=== PATIENT | female | born 1975 | race Caucasian/White ===

== ENCOUNTER 2017-09-02 16:14 | Emergency (ER) | payer MEDICAID, SELFPAY ==
[2017-09-02 16:15] VITALS: BP 122/90; PULSE 90; RESP 18; TEMP 36.6; O2SAT 96; BMI 27.3
[2017-09-02 16:20] VITALS: BMI 28.1
--- NOTE | 2017-09-02 16:22 | XR_ITS ---
XR chest portable HISTORY: ITS.REASON: CHEST PAIN ORDERING PHYSICIAN: Jack Ace MD PATIENT AGE: 41 years COMPARISON: 12/27/2016 FINDINGS: The cardiomediastinal silhouette and pulmonary vascularity are within normal limits. The lungs are clear without infiltrates, suspicious nodules, or pleural effusions. Calcified granuloma right upper lobe No acute bony abnormalities. IMPRESSION: No change with no acute finding
[2017-09-02 16:40] LABS: Basophils % 0.4 % (0.1-2.0); Eosinophils # 0.4 K/mm3 (0.0-0.4); Hematocrit 47.8 % (37.0-47.0); Hemoglobin 16.1 g/dL (12.2-16.2); Lymphocytes # 2.4 K/mm3 (0.7-4.5); Lymphocytes % 37.1 K/mm3 (10-50); Mean Corpuscular HGB Conc 33.6 g/dL (31.8-35.4); Mean Corpuscular Hemoglobin 30.8 pg (27.0-31.2); Mean Corpuscular Volume 91.5 fl (81-99); Mean Platelet Volume 7.3 fl (7.4-10.4); Monocytes # 0.4 K/mm3 (0.1-1.0); Monocytes % 5.2 % (1.7-9.3); Neutrophils # 3.4 K/mm3 (1.8-7.8); Neutrophils % 51.3 % (37.0-80.0); Platelet Count 257 K/mm3 (142-424); Red Blood Count 5.23 M/mm3 (4.20-5.40); Red Cell Distribution Width 12.6 % (11.5-17.5); White Blood Count 6.6 K/mm3 (4.8-10.8)
--- NOTE | 2017-09-02 16:42 | HMH.EDGENADL ---
ED Disposition Clinical Impression: Atypical chest pain Vomiting Qualifiers: Vomiting type: unspecified Vomiting Intractability: non-intractable Nausea presence: with nausea Qualified Code(s): R11.2 - Nausea with vomiting, unspecified Disposition: Home, Self-Care Condition on Discharge: Good Instructions: DI for Atypical Chest Pain, DI for Vomiting -- Adult Additional Instructions: Additional instructions for CHEST PAIN: See your physician as soon as possible for further evaluation. Return immediately if worsening chest pain, vomiting, shortness of breath, fever, coughing of blood. Referrals: Mark Soto MD [Primary Care Provider] - Forms: Work/School Release - Critical Care Critical Care Time: No Attestation: On , the high probability of a clinically significant, sudden or life threatening deterioration of the following system(s) required my full and direct attention, intervention and personal management. The time I documented below is in addition to time spent performing reported procedures but includes the following listed in this critical care notation. Medical Decision Making - Hector Inquiry Pt receiving controlled substance: No Vital Signs: 09/02/17 16:15 Temperature 98 F Temperature Source Oral Pulse Rate [Right Radial] 90 Respiratory Rate 18 Blood Pressure [Right Arm] 122/90 Blood Pressure Mean [Right Arm] 100 Blood Pressure Source [Right Arm] Automatic Cuff Blood Pressure Position [Right Arm] Supine 02 Sat by Pulse Oximetry 96 Oxygen Delivery Method Room Air - Lab Data Lab Results 09/02/17 16:30: WBC 6.6, RBC 5.23, Hgb 16.1, Hct 47.8 H, MCV 91.5, MCH 30.8, MCHC 33.6, RDW 12.6, Plt Count 257, MPV 7.3 L, Neut % (Auto) 51.3, Lymph % (Auto) 37.1, [place] % (Auto) 5.2, Eos % (Auto) 6.0, Baso % (Auto) 0.4, Neut # (Auto) 3.4, Lymph # (Auto) 2.4, [place] # (Auto) 0.4, Eos # (Auto) 0.4, Baso # (Auto) 0.0 09/02/17 17:00: Sodium 141, Potassium 3.3 L, Chloride 105, Carbon Dioxide 30, Anion Gap 9.3, BUN 9, Creatinine 0.61, Estimated Creat Clear 131, Estimated GFR 107, Est GFR ( Amer) 130, Glucose 103, Calcium 9.0, Total Bilirubin 0.4, AST 16, ALT 16, Alkaline Phosphatase 88, Total Creatine Kinase 60, CK-MB (CK-2) < 0.5, CK-MB (CK-2) Rel Index 0.8, Troponin I < 0.02, Total Protein 7.2, Albumin 3.5, Globulin 3.7 H, Albumin/Globulin Ratio 0.9 L 09/02/17 17:00: Lipase 106 Result diagrams: 09/02/17 16:30 09/02/17 17:00 Orders (Tests/Meds): ED MEDICATIONS Discontinued Medications Generic Name Dose Route Start Last Admin Trade Name Freq PRN Reason Stop Dose Admin Aspirin 324 mg 09/02/17 16:22 09/02/17 16:24 Aspirin 81mg Chewable Tablet PO 09/02/17 16:23 324 mg ONCE ONE Administration ORDERS Category Date Time Status XR chest portable Stat Exams 09/02/17 16:22 Taken - Radiology Data #1 Image(s): Chest Image Reviewed: Yes I reviewed the patient's radiology image Preliminary Findings: Normal/NAD - ECG Data Tracing #1 EKG interpreted by Jack Ace MD: Rhythm: sinus Rate: 89 Council: normal Ectopy: none Conduction: normal ST Segment Changes: none T Wave Changes: none Q Waves: none No evidence of acute ischemia or injury Medical Decision Narrative: Records reviewed. Patient had normal cardiac cath on 01/04/[address] Brock. General Adult HPI - General Chief complaint: Chest Pain Stated complaint: Chest Pain Time Seen by Provider: 09/02/17 17:09 Mode of Arrival: Ambulatory Limitations: No Limitations Description of Symptoms (Recalled from ER Triage Doc. by RN): Chest Pain - History of Present Illness HPI narrative: The patient complains of vomiting and chest discomfort. She says that she started vomiting about 8 this morning and then afterwards developed intermittent pain on the left lateral side of her chest. She says the pains come and go and last 3-4 minutes at a time. No shortness of breath or cough. No diarrhea. N
[2017-09-02 17:33] LABS: Lipase 106 u/L (73-393)
[2017-09-02 18:00] LABS: Alanine Aminotransferase 16 U/L (12-78); Albumin Level 3.5 gm/dL (3.4-5.0); Albumin/Globulin Ratio 0.9 (1.1-1.8); Alkaline Phosphatase 88 U/L (46-116); Anion Gap 9.3 mEq/L (5-15); Aspartate Amino Transferase 16 U/L (15-37); Bilirubin,Total 0.4 mg/dL (0.2-1.0); Blood Urea Nitrogen 9 mg/dL (7-18); CKMB Relative Index 0.8 U/L (0-4.0); Carbon Dioxide 30 mmol/L (21.0-32.0); Chloride 105 mmol/L (98-107); Creatine Kinase 60 U/L (26-192); Creatine Kinase MB < 0.5 mg/ml (0.0-3.6); Creatinine Clearance Estimated 131 mL/min (0-300); Creatinine,Serum 0.61 mg/dL (0.55-1.02); Estimated Glomerular Filt Rate 107 ml/min (>60); GFR (African American) 130 ML/MIN (>60); Globulin 3.7 gm/dl (1.3-3.2); Glucose 103 mg/dL (74-106); Potassium 3.3 mmoL/L (3.5-5.1); Sodium 141 mmol/L (136-145); Total Protein,Serum 7.2 gm/dL (6.4-8.2); Troponin I < 0.02 ng/ml (0.00-0.06)
[2017-09-02 18:14] VITALS: BP 132/84; PULSE 64; RESP 16; TEMP 36.7; O2SAT 96
== END 2017-09-02 18:19 | disposition home or self-care (01) ==
PROVIDERS: Emergency Provider Emergency Medicine; Family Provider Internal Medicine Adolescent Medicine; PCP Internal Medicine Adolescent Medicine
DX: R07.89 Other chest pain (principal); R11.2 Nausea with vomiting, unspecified
CPT/HCPCS: 71045; 80053; 82550; 82553; 83690; 84484; 85025; 93005; 99282

== ENCOUNTER 2017-09-10 17:36 | Emergency (ER) | payer MEDICAID, SELFPAY ==
[2017-09-10 17:48] VITALS: BP 136/85; PULSE 95; RESP 18; TEMP 37.3; O2SAT 98; BMI 27.6
--- NOTE | 2017-09-10 17:50 | XR_ITS ---
XR foot RT min 3V HISTORY: Pain following injury ITS.REASON: Injury ORDERING PHYSICIAN: Mandi Neevs PATIENT AGE: 41 years COMPARISON: None FINDINGS: No obvious fracture or dislocation. There is mild hallux valgus with first metatarsophalangeal angle of 29 degrees. IMPRESSION: Hallux valgus otherwise negative
--- NOTE | 2017-09-10 18:23 | HMH.EDUTC ---
[facility] [place] Impression: Foot contusion Qualifiers: Encounter type: initial encounter Laterality: right Qualified Code(s): S90.31XA - Contusion of right foot, initial encounter Disposition: Home, Self-Care Condition on Discharge: Good Instructions: How To Perform RICE (Rest, Ice, Compress, Elevate) Additional Instructions: *RICE, Rest the extremity, Ice 15-20 minutes 3-4 times daily, Compress- wear the kota wrap as discussed as much as possible to help reduce swelling and pain, Elevate the extremity when at rest *Kota wrap is for support and help control swelling, use it except in the shower. Be sure that is not to tight but not to loose either *Elevate when resting *Ibuprofen 600-800mg every 6-8 hours as needed for pain an inflammation. If need something more can take Tylenol in between doses of Ibuprofen to help Immediately follow up for new or worsening of symptoms, or no noticeable improvement over the next 3-5 days Prescriptions: Ibuprofen [Ibuprofen 600mg Tab] 600 mg PO Q6H PRN #20 tab PRN Reason: Moderate Pain Referrals: Mark Soto MD [Primary Care Provider] - Time of Disposition: 18:47 Medical Decision Making - Medical Records Medical records reviewed: Yes: I reviewed the patient's medical records. - Hector Inquiry Pt receiving controlled substance: No Hector was queried for this patient: No Vital Signs: 09/10/17 17:48 Temperature 99.1 F Temperature Source Temporal Artery Scan Pulse Rate [Right] 95 H Respiratory Rate 18 Blood Pressure [Right Arm] 136/85 Blood Pressure Mean [Right Arm] 102 Blood Pressure Source [Right Arm] Automatic Cuff Blood Pressure Position [Right Arm] Sitting 02 Sat by Pulse Oximetry 98 Oxygen Delivery Method Room Air Orders (Tests/Meds): ORDERS Category Date Time Status Foot XR right minimum 3 views [XR foot RT min 3V] Stat Exams 09/10/17 17:50 Taken - Radiology Data #1 Image(s): Foot[place] [facility] [place] - General Stated complaint: AO 09/10/17 @ 1730 inj to right foot Time Seen by Provider: 09/10/17 18:00 Mode of Arrival: Ambulatory Source of Information: Patient Limitations: No Limitations Description of Symptoms (Recalled from Triage Doc. by RN): RIGHT FOOT INJURY HEENT Symptoms (Recalled from RN notes): No Resp Symptoms (Recalled from RN notes): No Skin Symptoms (Recalled from RN notes): No MS Symptoms (Recalled from RN notes): Yes Functional Status (Recalled from RN notes): N - History of Present Illness Provider Complaint: Patient state that she was at home and she dropped a microscope on the top of her right foot at home states that she immediately began to have pain and tenderness across the top of her right foot State that family immediately brought her up here to get it checked out - Related Data Previous Rx's Medication Instructions Recorded Ibuprofen [Ibuprofen 600mg Tab] 600 mg PO Q6H PRN #20 tab 09/10/17 Allergies Allergy/AdvReac Type Severity Reaction Status Date / Time No Known Allergies Allergy Verified 09/10/17 17:52 - Worker's Comp Is this a Worker's Comp case?: No [facility] History I have reviewed the patient's past medical history: Yes Medical History: Denies:: Diabetes Mellitus Type 1, Diabetes Mellitus Type 2 Amputation: No Fractures: No - Social History Smoking Status: Current every day smoker Tobacco Type: cigarettes Alcohol Intake: never - Psychiatric History Expresses thoughts of harming self/others: None Suicide Plan Description: No Plan ROS Obtained: Yes All systems reviewed & no additional complaints Physical Exam - General General appearance: alert, in no apparent distress - Respiratory Respiratory exam: Present: normal lung sounds bilaterally. Absent: respiratory distress - Cardiovascular Cardiovascular exam: Present: regular rate, normal rhythm. Absent: JVD - Abdominal Exam Abdominal exam: Present: soft, normal bowel sounds. Absent: distention, tenderness, guard
--- NOTE | 2017-09-10 18:27 | ED_ITS ---
[facility] [place] Clinical Impression: Foot contusion Qualifiers: Encounter type: initial encounter Laterality: right Qualified Code(s): S90.31XA - Contusion of right foot, initial encounter Disposition: Home, Self-Care Condition on Discharge: Good Instructions: How To Perform RICE (Rest, Ice, Compress, Elevate) Additional Instructions: *RICE, Rest the extremity, Ice 15-20 minutes 3-4 times daily, Compress- wear the kota wrap as discussed as much as possible to help reduce swelling and pain, Elevate the extremity when at rest *Kota wrap is for support and help control swelling, use it except in the shower. Be sure that is not to tight but not to loose either *Elevate when resting *Ibuprofen 600-800mg every 6-8 hours as needed for pain an inflammation. If need something more can take Tylenol in between doses of Ibuprofen to help Immediately follow up for new or worsening of symptoms, or no noticeable improvement over the next 3-5 days Prescriptions: Ibuprofen [Ibuprofen 600mg Tab] 600 mg PO Q6H PRN #20 tab PRN Reason: Moderate Pain Referrals: Mark Soto MD [Primary Care Provider] - Time of Disposition: 18:47 Medical Decision Making - Medical Records Medical records reviewed: Yes: I reviewed the patient's medical records. - Hector Inquiry Pt receiving controlled substance: No Hector was queried for this patient: No Vital Signs: 09/10/17 17:48 Temperature 99.1 F Temperature Source Temporal Artery Scan Pulse Rate [Right] 95 H Respiratory Rate 18 Blood Pressure [Right Arm] 136/85 Blood Pressure Mean [Right Arm] 102 Blood Pressure Source [Right Arm] Automatic Cuff Blood Pressure Position [Right Arm] Sitting 02 Sat by Pulse Oximetry 98 Oxygen Delivery Method Room Air Orders (Tests/Meds): ORDERS Category Date Time Status Foot XR right minimum 3 views [XR foot RT min 3V] Stat Exams 09/10/17 17:50 Taken - Radiology Data #1 Image(s): Foot/Toes [facility] [place] HPI - General Stated complaint: AO 09/10/17 @ 1730 inj to right foot Time Seen by Provider: 09/10/17 18:00 Mode of Arrival: Ambulatory Source of Information: Patient Limitations: No Limitations Description of Symptoms (Recalled from Triage Doc. by RN): RIGHT FOOT INJURY HEENT Symptoms (Recalled from RN notes): No Resp Symptoms (Recalled from RN notes): No Skin Symptoms (Recalled from RN notes): No MS Symptoms (Recalled from RN notes): Yes Functional Status (Recalled from RN notes): N - History of Present Illness Provider Complaint: Patient state that she was at home and she dropped a microscope on the top of her right foot at home states that she immediately began to have pain and tenderness across the top of her right foot State that family immediately brought her up here to get it checked out - Related Data Previous Rx's Medication Instructions Recorded Ibuprofen [Ibuprofen 600mg Tab] 600 mg PO Q6H PRN #20 tab 09/10/17 Allergies Allergy/AdvReac Type Severity Reaction Status Date / Time No Known Allergies Allergy Verified 09/10/17 17:52 - Worker's Comp Is this a Worker's Comp case?: No [facility] History I have reviewed the patient's past medical history: Yes Medical History: Denies:: Diabetes Mellitus Type 1, Diabetes Mellitus Type 2 Amputation: No Fractures: No - Social History Smoking Status: Current every day
[2017-09-10 18:42] VITALS: BP 136/85; PULSE 95; RESP 18; TEMP 37.3
== END 2017-09-10 18:53 | disposition home or self-care (01) ==
PROVIDERS: Emergency Provider Nurse Practitioner; Family Provider Internal Medicine Adolescent Medicine; PCP Internal Medicine Adolescent Medicine
DX: S90.31XA Contusion of right foot, initial encounter (principal); W22.8XXA Striking against or struck by other objects, initial encounter; Y92.019 Unspecified place in single-family (private) house as the place of occurrence of the external cause; F17.210 Nicotine dependence, cigarettes, uncomplicated
CPT/HCPCS: 73630; 99201

== ENCOUNTER 2018-02-20 13:46 | Observation (INO) ==
--- NOTE | 2018-02-20 14:35 | Emergency Department Note ---
ED Disposition Clinical Impression: Chest pain Qualifiers: Chest pain type: precordial pain Qualified Code(s): R07.2 - Precordial pain Disposition: Admitted as Observation Condition on Discharge: Good Referrals: Mark Soto MD [Primary Care Provider] - - Critical Care Critical Care Time: No Attestation: On 02/20/18, the high probability of a clinically significant, sudden or life threatening deterioration of the following system(s) required my full and direct attention, intervention and personal management. The time I documented below is in addition to time spent performing reported procedures but includes the following listed in this critical care notation. Medical Decision Making - Medical Records Medical records reviewed: Yes: I reviewed the patient's medical records. - Hector Inquiry Pt receiving controlled substance: Yes Hector was queried for this patient: No Risks and benefits of using a controlled substance: were discussed with pt by me Vital Signs: 02/20/18 14:05 02/20/18 14:48 02/20/18 15:21 Temperature 98.6 F Temperature Source Oral Pulse Rate [Right Brachial] 97 H 92 H 84 Respiratory Rate 18 Blood Pressure [Right Arm] 121/87 123/74 121/70 Blood Pressure Mean [Right Arm] 98 90 87 Blood Pressure Source [Right Arm] Automatic Cuff Automatic Cuff Automatic Cuff Blood Pressure Position [Right Arm] Sitting Sitting Sitting 02 Sat by Pulse Oximetry 99 96 97 Oxygen Delivery Method Room Air Room Air Room Air 02/20/18 16:25 Temperature Temperature Source Pulse Rate [Right Brachial] 73 Respiratory Rate Blood Pressure [Right Arm] 118/87 Blood Pressure Mean [Right Arm] 97 Blood Pressure Source [Right Arm] Automatic Cuff Blood Pressure Position [Right Arm] Sitting 02 Sat by Pulse Oximetry 98 Oxygen Delivery Method Room Air - Lab Data Lab results reviewed: Yes: I reviewed the patient's lab results. Lab Results 02/20/18 14:28: WBC 8.6, RBC 5.08, Hgb 15.4, Hct 46.3, MCV 91.1, MCH 30.3, MCHC 33.3, RDW 12.9, Plt Count 277, MPV 6.9 L, Neut % (Auto) 64.2, Lymph % (Auto) 29.2, [place] % (Auto) 4.9, Eos % (Auto) 1.4, Baso % (Auto) 0.3, Neut # (Auto) 5.5, Lymph # (Auto) 2.5, [place] # (Auto) 0.4, Eos # (Auto) 0.1, Baso # (Auto) 0.0 02/20/18 14:28: Sodium 141, Potassium 3.6, Chloride 104, Carbon Dioxide 29, Anion Gap 11.6, BUN 5 L, Creatinine 0.64, Estimated Creat Clear 129, Estimated GFR 101, Est GFR ( Amer) 122, Glucose 87, Calcium 9.2, Total Bilirubin 0.4, Direct Bilirubin 0.1, Indirect Bilirubin 0.3, AST 12 L, ALT 19, Alkaline Phosphatase 116, Troponin I < 0.02, Total Protein 8.0, Albumin 3.8, Lipase 145 02/20/18 14:28: D-Dimer < 100 02/20/18 14:45: Urine Color Yellow, Urine Appearance Clear, Urine pH 6.0, Ur Specific [place] 1.015, Urine Protein Negative, Urine Glucose (UA) Negative, Urine Ketones Negative, Urine Blood Negative, Urine Nitrate Negative, Urine Bilirubin Negative, Urine Urobilinogen 0.2, Ur Leukocyte Esterase 1+ A, Urine RBC Occasional, Urine WBC Occasional, Ur Squamous Epith Cells 20-50, Urine Bacteria Trace, Urine Trichomonas 2+ Result diagrams: 02/20/18 14:28 02/20/18 14:28 Orders (Tests/Meds): ED MEDICATIONS Generic Name Dose Route Start Last Admin Trade Name Christianoq PRN Reason Stop Dose Admin Metronidazole 100 mls @ 100 mls/hr 02/20/18 16:50 Flagyl 500mg/100ml Ivpb IV 02/20/18 17:49 ONCE ONE Protocol Discontinued Medications Generic Name Dose Route Start Last Admin Trade Name Freq PRN Reason Stop Dose Admin Aspirin 324 mg 02/20/18 14:31 02/20/18 15:04 Aspirin 81mg Chewable Tablet PO 02/20/18 14:32 324 mg ONCE ONE Administration Ketorolac Tromethamine 30 mg 02/20/18 16:50 Toradol 30mg/Ml Vial IV 02/20/18 16:51 ONCE ONE Morphine Sulfate 2 mg 02/20/18 14:31 02/20/18 15:04 Morphine 2mg/Ml Syringe IV 02/20/18 14:32 2 mg ONCE ONE Administration Pantoprazole Sodium 40 mg 02/20/18 14:35 02/20/18 15:04 Protonix 40mg Vial IV 02/20/18 14:36 40 mg ONCE ONE Administration Sodium Chloride 8 ml 02/20/18 14:35 02/20/18 15:04 Saline Flush 10ml Syringe IV 02/20/18 14:36 8 ml ONCE ONE Administration ORDERS Category Date Time Status Urine Culture Stat Micro 02/20/18 14:45 Received - Radiology Data #1 Image(s): Chest, Other (nap) Image Reviewed: Yes I have reviewed radiologist's interpretation - ECG Data Tracing #1 I reviewed this ECG and interpreted as documented below: Normal Sinus Rhythm: Yes (no stemi) Medical Decision Narrative: admit d/w Dr Soto General Adult HPI - General Chief complaint: Chest Pain Stated complaint: left rib pain vomiting Time Seen by Provider: 02/20/18 14:32 Mode of Arrival: Family Vehicle Source of Information: Patient Limitations: No Limitations Description of Symptoms (Recalled from ER Triage Doc. by RN): C/O PAIN UNDER LEFT BREAST X 3 DAYS AND VOMITING TODAY AFTER EATING - History of Present Illness HPI narrative: mild to mod off and on left sharp chest pain for 3 days, nonrad, no injury, no fever +smoking, - Related Data Home Medications Medication Instructions Recorded Confirmed Cholecalciferol (Vitamin D3) 1,000 mg PO DAILY 01/23/18 02/20/18 [Vitamin D3 1,000 Unit Tab] Citalopram Hydrobromide 20 mg PO DAILY 01/23/18 02/20/18 [Citalopram HBr] Estradiol 1 tab PO DAILY 01/23/18 02/20/18 Pantoprazole Sodium [Protonix 40mg 40 mg PO DAILY 01/23/18 02/20/18 tablet] Allergies Allergy/AdvReac Type Severity Reaction Status Date / Time No Known Allergies Allergy Verified 09/10/17 17:52 [facility] History I have reviewed the patient's past medical history: Yes Medical History: Denies:: Diabetes Mellitus Type 1, Diabetes Mellitus Type 2 Other Medical History: Reports: Other (hx frontal h/a) Laterality Cases: Bilateral: Myringotomy (Ear Tubes) Amputation: No Fractures: No - Social History Smoking Status: Current every day smoker Tobacco Type: cigarettes Alcohol Intake: never - Psychiatric History Expresses thoughts of harming self/others: None Suicide Plan Description: No Plan ROS Obtained: Yes Systems reviewed as appropriate & no additional complaints - Constitutional Constitutional: Denies fever(s) - Eyes Eyes: Denies change in vision - ENT Ears, Nose, Mouth, and Throat: Denies dizziness - Cardiovascular Cardiovascular: Reports chest pain - Respiratory Respiratory: Yes dyspnea - Gastrointestinal Gastrointestingal: Denies: abdominal pain - Musculoskeletal Musculoskeletal: Denies deformity - Integumentary/Breasts Skin/Breast: Denies rash - Neurologic Neurologic: Denies dizziness Physical Exam - General General appearance: alert, in no apparent distress - Head Head exam: atraumatic - Eye Eye exam: Present: EOMI - ENT ENT exam: Present: normal exam - Neck Neck exam: Present: full ROM - Chest Chest inspection: Present: normal inspection - Respiratory Respiratory exam: Present: normal lung sounds bilaterally - Cardiovascular Cardiovascular exam: Present: regular rate, normal rhythm - Abdominal Exam Abdominal exam: Present: soft. Absent: tenderness - Extremities Exam Extremities exam: Absent: tenderness - Neurological Exam Neurological exam: Present: alert, oriented X3 - Psychiatric Psychiatric exam: Present: normal affect, normal mood - Skin Skin exam: Present: warm, dry
[2018-02-20 14:57] LABS: Basophils % 0.3 % (0.1-2.0); Eosinophils # 0.1 K/mm3 (0.0-0.4); Eosinophils % 1.4 % (0.1-12.0); Hematocrit 46.3 % (37.0-47.0); Hemoglobin 15.4 g/dL (12.2-16.2); Lymphocytes # 2.5 K/mm3 (0.7-4.5); Lymphocytes % 29.2 K/mm3 (10-50); Mean Corpuscular HGB Conc 33.3 g/dL (31.8-35.4); Mean Corpuscular Hemoglobin 30.3 pg (27.0-31.2); Mean Corpuscular Volume 91.1 fl (81-99); Mean Platelet Volume 6.9 fl (7.4-10.4); Monocytes # 0.4 K/mm3 (0.1-1.0); Monocytes % 4.9 % (1.7-9.3); Neutrophils # 5.5 K/mm3 (1.8-7.8); Neutrophils % 64.2 % (37.0-80.0); Platelet Count 277 K/mm3 (142-424); Red Blood Count 5.08 M/mm3 (4.20-5.40); Red Cell Distribution Width 12.9 % (11.5-17.5); White Blood Count 8.6 K/mm3 (4.8-10.8)
[2018-02-20 14:59] LABS: Appearance,Urine CLEAR (Clear); Bilirubin,Urine Negative (Negative); Blood, Urine Negative (Negative); Color,Urine YELLOW (Yellow); Glucose,Urine (UA) Negative (Negative); Ketones,Urine Negative (Negative); Leukocyte Esterase,Urine 1+ (Negative); Microscopic, Urine URINE MICROSCOPIC (MICROSCOPIC); Protein,Urine Negative (Negative); Specific Gravity, Urine 1.015 (1.005-1.030); Urobilinogen,Urine 0.2 EU/dl (0.2)
[2018-02-20 15:07] LABS: Alanine Aminotransferase 19 U/L (12-78); Albumin Level 3.8 gm/dL (3.4-5.0); Alkaline Phosphatase 116 U/L (46-116); Anion Gap 11.6 mEq/L (5-15); Aspartate Amino Transferase 12 U/L (15-37); Bilirubin,Direct 0.1 mg/dL (0.0-0.2); Bilirubin,Indirect 0.3 mg/dL (0.0-0.9); Bilirubin,Total 0.4 mg/dL (0.2-1.0); Blood Urea Nitrogen 5 mg/dL (7-18); Calcium 9.2 mg/dL (8.5-10.1); Carbon Dioxide 29 mmol/L (21.0-32.0); Chloride 104 mmol/L (98-107); Glucose 87 mg/dL (74-106); Lipase 145 u/L (73-393); Potassium 3.6 mmoL/L (3.5-5.1); Sodium 141 mmol/L (136-145)
[2018-02-20 15:27] LABS: Bacteria,Urine Trace /lpf; RBC,Urine Occasional #/hpf (0-3); Squamous Epithelial Cell,Urine 20-50 #/hpf (0-5); Trichomonas,Urine 2+ /lpf; WBC,Urine Occasional #/hpf (0-3)
--- NOTE | 2018-02-20 18:21 | H&P/Discharge Summary ---
General - General Admission date:: 02/20/18 Discharge date: 02/20/18 *Admission Date: 02/20/18 *Chief complaint: Chest pain *History of present illness: 42-year-old white female who presented to the emergency department with pain under her left axillary region for the past 3 days. In the emergency department she was complaining of pain which was relieved with morphine, ibuprofen and nitroglycerin. She was admitted by the ER physician because of her risk factors. When I evaluated her on the hospital floor she was pain-free. She denied diaphoresis, nausea, vomiting, exertional character of the pain. She reported the pain was worse when she "sat down or lay down flat." Of note she has GERD, but forgets to take her medicine very frequently. [facility] History I have reviewed the patient's past medical history: Yes Medical History: Reports:: Anxiety Denies:: Arrhythmia, Asthma, Chronic Obstructive Pulmonary Disease (COPD), Coronary Artery Disease, Cerebrovascular Accident, Diabetes Mellitus Type 1, Diabetes Mellitus Type 2 Other Medical History: Reports: Other ( frontal h/a) Laterality Cases: Bilateral: Myringotomy (Ear Tubes) Amputation: No Fractures: No - *Social History Smoking Status: Current every day smoker Tobacco Type: cigarettes Alcohol Intake: never - Psychiatric History Expresses thoughts of harming self/others: None Suicide Plan Description: No Plan Review of Systems - Review of Systems Review of systems:: pertinent systems reviewed and negative unless documented below - *Neurologic Denies dizziness Exam Vital signs and Labs for Last 24 Hours: Temp Pulse Resp BP Pulse Ox 98 F 85 18 122/67 97 02/20/18 18:05 02/20/18 18:05 02/20/18 18:05 02/20/18 18:05 02/20/18 17:08 Laboratory Results - last 24 hr 02/20/18 14:28: WBC 8.6, RBC 5.08, Hgb 15.4, Hct 46.3, MCV 91.1, MCH 30.3, MCHC 33.3, RDW 12.9, Plt Count 277, MPV 6.9 L, Neut % (Auto) 64.2, Lymph % (Auto) 29.2, Adams % (Auto) 4.9, Eos % (Auto) 1.4, Baso % (Auto) 0.3, Neut # (Auto) 5.5, Lymph # (Auto) 2.5, Adams # (Auto) 0.4, Eos # (Auto) 0.1, Baso # (Auto) 0.0 02/20/18 14:28: Sodium 141, Potassium 3.6, Chloride 104, Carbon Dioxide 29, Anion Gap 11.6, BUN 5 L, Creatinine 0.64, Estimated Creat Clear 129, Estimated GFR 101, Est GFR ( Amer) 122, Glucose 87, Calcium 9.2, Total Bilirubin 0.4, Direct Bilirubin 0.1, Indirect Bilirubin 0.3, AST 12 L, ALT 19, Alkaline Phosphatase 116, Troponin I < 0.02, Total Protein 8.0, Albumin 3.8, Lipase 145 02/20/18 14:28: D-Dimer < 100 02/20/18 14:45: Urine Color Yellow, Urine Appearance Clear, Urine pH 6.0, Ur Specific [place] 1.015, Urine Protein Negative, Urine Glucose (UA) Negative, Urine Ketones Negative, Urine Blood Negative, Urine Nitrate Negative, Urine Bilirubin Negative, Urine Urobilinogen 0.2, Ur Leukocyte Esterase 1+ A, Urine RBC Occasional, Urine WBC Occasional, Ur Squamous Epith Cells 20-50, Urine Bacteria Trace, Urine Trichomonas 2+ I & O for Last 24 hours: Intake & Output 02/18/18 02/19/18 02/20/18 02/21/18 11:59 11:59 11:59 11:59 Weight 160 lb Narrative: Patient is pleasant and alert, ENT exam clear. No JVD. No thyromegaly. Heart rate regular without murmurs. She has reproducible chest pain in the left axilla at the lower part of the costal margin. She has no pulse deficits, no edema, no clubbing or cyanosis. Hospital Course Hospital Course: Patient was admitted from the ER, she has absolutely no worrisome factors for cardiac chest pain. She does have risk factors which can be addressed as an outpatient. Second troponin level is negative. Patient wishes to be discharged home and I believe this is safe. I thoroughly educated her on cardiac symptoms and she will return if she has actual cardiac chest pain. We will discharge her home with NSAID, treatment for her trichomonas and she will call my office tomorrow to schedule a stress test as an outpatient. Results Labs on day of discharge: Labs from last 24 hours 02/20/18 02/20/18 02/20/18 14:45 14:28 14:28 WBC RBC Hgb Hct MCV MCH MCHC RDW Plt Count MPV Neut % (Auto) Lymph % (Auto) Adams % (Auto) Eos % (Auto) Baso % (Auto) Neut # (Auto) Lymph # (Auto) Adams # (Auto) Eos # (Auto) Baso # (Auto) D-Dimer < 100 Sodium 141 Potassium 3.6 Chloride 104 Carbon Dioxide 29 Anion Gap 11.6 BUN 5 L Creatinine 0.64 Estimated Creat Clear 129 Estimated GFR 101 Est GFR ( Amer) 122 Glucose 87 Calcium 9.2 Total Bilirubin 0.4 Direct Bilirubin 0.1 Indirect Bilirubin 0.3 AST 12 L ALT 19 Alkaline Phosphatase 116 Troponin I < 0.02 Total Protein 8.0 Albumin 3.8 Lipase 145 Urine Color Yellow Urine Appearance Clear Urine pH 6.0 Ur Specific [place] 1.015 Urine Protein Negative Urine Glucose (UA) Negative Urine Ketones Negative Urine Blood Negative Urine Nitrate Negative Urine Bilirubin Negative Urine Urobilinogen 0.2 Ur Leukocyte Esterase 1+ A Urine RBC Occasional Urine WBC Occasional Ur Squamous Epith Cells 20-50 Urine Bacteria Trace Urine Trichomonas 2+ 02/20/18 14:28 WBC 8.6 RBC 5.08 Hgb 15.4 Hct 46.3 MCV 91.1 MCH 30.3 MCHC 33.3 RDW 12.9 Plt Count 277 MPV 6.9 L Neut % (Auto) 64.2 Lymph % (Auto) 29.2 Adams % (Auto) 4.9 Eos % (Auto) 1.4 Baso % (Auto) 0.3 Neut # (Auto) 5.5 Lymph # (Auto) 2.5 Adams # (Auto) 0.4 Eos # (Auto) 0.1 Baso # (Auto) 0.0 D-Dimer Sodium Potassium Chloride Carbon Dioxide Anion Gap BUN Creatinine Estimated Creat Clear Estimated GFR Est GFR ( Amer) Glucose Calcium Total Bilirubin Direct Bilirubin Indirect Bilirubin AST ALT Alkaline Phosphatase Troponin I Total Protein Albumin Lipase Urine Color Urine Appearance Urine pH Ur Specific [place] Urine Protein Urine Glucose (UA) Urine Ketones Urine Blood Urine Nitrate Urine Bilirubin Urine Urobilinogen Ur Leukocyte Esterase Urine RBC Urine WBC Ur Squamous Epith Cells Urine Bacteria Urine Trichomonas DS: Diagnosis - Discharge Diagnosis (1) Trichomonas infection Status: Acute (2) Atypical chest pain Status: Acute Discharge Medications - Medications for Discharge Home Medication List at Discharge: No Action Pantoprazole Sodium [Protonix 40mg tablet] 40 mg PO DAILY Citalopram Hydrobromide [Citalopram HBr] 20 mg PO DAILY Cholecalciferol (Vitamin D3) [Vitamin D3 1,000 Unit Tab] 1,000 mg PO DAILY Estradiol 1 tab PO DAILY Disposition Disposition: Home, Self-Care
== END 2018-02-20 18:41 | disposition home or self-care (01) ==
LOC: UTC 13:46 → 2ND 13:46
PROVIDERS: ADMIT Internal Medicine Adolescent Medicine; ATTEND Internal Medicine Adolescent Medicine

== ENCOUNTER → 2018-03-09 09:05 | Outpatient (CLI) | payer MEDICAID, SELFPAY | PROVIDERS: Family Provider Internal Medicine Adolescent Medicine; PCP Internal Medicine Adolescent Medicine; Visit Provider Internal Medicine Adolescent Medicine | DX: R07.9 Chest pain, unspecified (principal) | CPT/HCPCS: 93017 ==

== ENCOUNTER → 2018-04-06 06:17 | Outpatient (CLI) | payer BC, MEDICAID, SELFPAY ==
--- NOTE | 2018-04-06 07:02 | NM_ITS ---
CARDIOLITE SPECT MYOCARDIAL PERFUSION SCAN, REST AND STRESS: EXERCISE STRESS [facility] REVIEW QGS EF AND WALL MOTION EVALUATION: QPS - PERFUSION EVALUATION HISTORY: Chest pain, SOB, Tobacco use DOSE: 10.76 mCi technetium 99m mibi intravenously at rest followed by 32.0 mCi technetium 99m mibi following the intravenous ministration of 0.4 mg of Lexiscan. Resting blood pressure is 134/88. Stress blood pressure 142/85. FINDINGS: Ejection fraction is calculated to be 68%. Stress images reveal decreased activity in the mid anterior apical wall with no significant change with rest. IMPRESSION: This test is most consistent with breast attenuation however clinical correlation is advised. Normal ejection fraction and normal wall motion
--- NOTE | 2018-04-06 07:13 | HMH.ITSHM ---
Current Home Medications as stated by this patient Trixie Soria or assistance representative. []ESTRADOL PANTOPRAZOLE CITALOPRAM VITAMIN D3
== END ==
PROVIDERS: Family Provider Internal Medicine Adolescent Medicine; PCP Internal Medicine Adolescent Medicine; Visit Provider Internal Medicine Adolescent Medicine
DX: R07.9 Chest pain, unspecified (principal)
CPT/HCPCS: 78452; 93017; A9502; J2785

== ENCOUNTER → 2018-04-17 10:07 | Outpatient (CLI) | payer BC, SELFPAY ==
[2018-04-17 13:16] LABS: Anion Gap 11.6 mEq/L (5-15); Blood Urea Nitrogen 6 mg/dL (7-18); Carbon Dioxide 30 mmol/L (21.0-32.0); Chloride 104 mmol/L (98-107); Creatinine,Serum 0.51 mg/dL (0.55-1.02); Estimated Glomerular Filt Rate 131 ml/min (>60); Free Thyroxine Index 2.2 ug/dL (5.93-13.13); GFR (African American) 159 ML/MIN (>60); Glucose 102 mg/dL (74-106); Potassium 3.6 mmoL/L (3.5-5.1); Sodium 142 mmol/L (136-145); Thyroid Stimulating Hormone 1.03 uIU/ml (0.358-3.740); Triiodothryronine (T3) Uptake 32 % (31-39)
== END ==
PROVIDERS: Visit Provider Internal Medicine Adolescent Medicine
DX: E87.6 Hypokalemia (principal); R42 Dizziness and giddiness
CPT/HCPCS: 36415; 80048; 83735; 84436; 84443; 84479

== ENCOUNTER → 2018-05-27 08:40 | Outpatient (CLI) | payer BC, SELFPAY ==
[2018-05-27 09:06] LABS: Basophils % 0.5 % (0.1-2.0); Eosinophils # 0.2 K/mm3 (0.0-0.4); Eosinophils % 2.2 % (0.1-12.0); Hematocrit 43.2 % (37.0-47.0); Hemoglobin 14.5 g/dL (12.2-16.2); Lymphocytes # 3.2 K/mm3 (0.7-4.5); Lymphocytes % 44.2 % (10-50); Mean Corpuscular HGB Conc 33.5 g/dL (31.8-35.4); Mean Corpuscular Hemoglobin 31.2 pg (27.0-31.2); Mean Corpuscular Volume 93.1 fl (81-99); Mean Platelet Volume 7.1 fl (7.4-10.4); Monocytes # 0.4 K/mm3 (0.1-1.0); Monocytes % 5.6 % (1.7-9.3); Neutrophils # 3.4 K/mm3 (1.8-7.8); Neutrophils % 47.6 % (37.0-80.0); Platelet Count 259 K/mm3 (142-424); Red Blood Count 4.64 M/mm3 (4.20-5.40); Red Cell Distribution Width 13.2 % (11.5-17.5); White Blood Count 7.2 K/mm3 (4.8-10.8)
[2018-05-27 10:09] LABS: Alanine Aminotransferase 20 U/L (12-78); Albumin Level 3.6 gm/dL (3.4-5.0); Alkaline Phosphatase 103 U/L (46-116); Anion Gap 10.4 mEq/L (5-15); Aspartate Amino Transferase 14 U/L (15-37); Bilirubin,Total 0.3 mg/dL (0.2-1.0); Blood Urea Nitrogen 6 mg/dL (7-18); Calcium 9.2 mg/dL (8.5-10.1); Carbon Dioxide 31 mmol/L (21.0-32.0); Chloride 103 mmol/L (98-107); Creatinine,Serum 0.62 mg/dL (0.55-1.02); Estimated Glomerular Filt Rate 105 ml/min (>60); GFR (African American) 127 ML/MIN (>60); Globulin 3.5 gm/dl (1.3-3.2); Glucose 77 mg/dL (74-106); Potassium 3.4 mmoL/L (3.5-5.1); Sodium 141 mmol/L (136-145); Thyroid Stimulating Hormone 2.26 uIU/ml (0.358-3.740); Total Protein,Serum 7.1 gm/dL (6.4-8.2)
[2018-05-28 15:23] LABS: Vitamin B12 254 pg/mL (232-1245); Vitamin D 25 Hydroxy 20.9 ng/mL (30.0-100.0)
== END ==
PROVIDERS: Visit Provider Nurse Practitioner Family
DX: R20.2 Paresthesia of skin (principal); E87.6 Hypokalemia
CPT/HCPCS: 36415; 80053; 82607; 82652; 84443; 85025

== ENCOUNTER 2018-10-16 09:05 | Emergency (ER) | payer BC, SELFPAY ==
[2018-10-16 09:17] VITALS: BP 124/91; PULSE 98; RESP 17; TEMP 36.9; O2SAT 98; BMI 29.2
--- NOTE | 2018-10-16 09:24 | HMH.EDGENADL ---
ED Disposition Clinical Impression: Hemoptysis Hematemesis Qualifiers: Nausea presence: with nausea Qualified Code(s): K92.0 - Hematemesis Disposition: Home, Self-Care Condition on Discharge: Good Instructions: DI for Vomiting -- Adult, DI for Hemoptysis Additional Instructions: Zofran for nausea and vomiting. Take your Protonix every day. Follow-up with primary care provider next week. Return to the emergency room if vomiting of blood worsens. Prescriptions: Ondansetron [Zofran 4mg ODT] 4 mg PO TIDP PRN #10 tab.rapdis PRN Reason: Nausea And Vomiting Referrals: Mark Soto MD [Primary Care Provider] - Forms: Work/School Release - Critical Care Critical Care Time: No Attestation: On 10/16/18, the high probability of a clinically significant, sudden or life threatening deterioration of the following system(s) required my full and direct attention, intervention and personal management. The time I documented below is in addition to time spent performing reported procedures but includes the following listed in this critical care notation. Medical Decision Making - Hector Inquiry Pt receiving controlled substance: No Vital Signs: 10/16/18 09:17 10/16/18 09:52 10/16/18 10:23 Temperature 98.5 F Temperature Source Oral Pulse Rate [Right Brachial] 98 H 76 90 Respiratory Rate 17 17 Blood Pressure [Right Arm] 124/91 H 120/80 113/73 Blood Pressure Mean [Right Arm] 102 93 86 Blood Pressure Source [Right Arm] Automatic Cuff Automatic Cuff Blood Pressure Position [Right Arm] Sitting Sitting 02 Sat by Pulse Oximetry 98 100 99 Oxygen Delivery Method Room Air Room Air - Lab Data Lab Results 10/16/18 09:25: WBC 13.5 H, RBC 4.89, Hgb 15.6, Hct 44.1, MCV 90.1, MCH 31.9 H, MCHC 35.4, RDW 12.7, Plt Count 285, MPV 7.3 L, Neut % (Auto) 74.4, Lymph % (Auto) 21.1, [place] % (Auto) 3.6, Eos % (Auto) 0.6, Baso % (Auto) 0.3, Neut # (Auto) 10.0 H, Lymph # (Auto) 2.8, [place] # (Auto) 0.5, Eos # (Auto) 0.1, Baso # (Auto) 0.0 10/16/18 09:25: Sodium 138, Potassium 2.9 L*, Chloride 101, Carbon Dioxide 30, Anion Gap 9.9, BUN 6 L, Creatinine 0.63, Estimated Creat Clear 129, Estimated GFR 102, Est GFR ( Amer) 124, Glucose 100, Calcium 9.6, Total Bilirubin 0.5, AST 10 L, ALT 22, Alkaline Phosphatase 115, Troponin I < 0.02, Total Protein 8.1, Albumin 3.7, Globulin 4.4 H, Albumin/Globulin Ratio 0.8 L 10/16/18 09:25: D-Dimer < 100 10/16/18 09:40: Stool Occult Blood Negative Result diagrams: 10/16/18 09:25 10/16/18 09:25 Orders (Tests/Meds): ED MEDICATIONS Discontinued Medications Generic Name Dose Route Start Last Admin Trade Name Freq PRN Reason Stop Dose Admin Ondansetron HCl 4 mg 10/16/18 09:30 10/16/18 09:49 Zofran 4mg/2ml Vial IV 10/16/18 09:31 4 mg ONCE ONE Administration Potassium Chloride 60 meq 10/16/18 10:13 10/16/18 10:16 Klor-Con 20meq Tablet PO 10/16/18 10:14 60 meq ONCE ONE Administration Sodium Chloride 1,000 ml 10/16/18 09:31 10/16/18 09:49 Sod Chlor 0.9% 1000ml Bag IV 10/16/18 09:32 1,000 ml BOLUS ONE Administration ORDERS Category Date Time Status Chest XR 2 view (NOT portable) [XR chest 2V] Stat Exams 10/16/18 09:25 Taken - Radiology Data #1 Image(s): Chest Image Reviewed: Yes I reviewed the patient's radiology image Preliminary Findings: Normal/NAD - ECG Data Tracing #1 EKG interpreted by Jack Ace MD: Rhythm: sinus Rate: 97 [place]: normal Ectopy: none Conduction: normal ST Segment Changes: none T Wave Changes: none Q Waves: none No evidence of acute ischemia or injury General Adult HPI - General Stated complaint: blood in vomit Time Seen by Provider: 10/16/18 09:20 Mode of Arrival: Ambulatory Limitations: No Limitations Description of Symptoms (Recalled from ER Triage Doc. by RN): pt presents after having had chest pain earlier this week (approx friday) and continued issues associated with it sin
--- NOTE | 2018-10-16 09:25 | XR_ITS ---
XR chest 2V HISTORY: ITS.REASON: coughing up blood ORDERING PHYSICIAN: Jack Ace MD PATIENT AGE: 43 years COMPARISON: 02/20/2018 FINDINGS: The cardiomediastinal silhouette and pulmonary vascularity are within normal limits. The lungs are clear without infiltrates, suspicious nodules, or pleural effusions. There is calcified granuloma in the right mid lung. No acute bony abnormalities. IMPRESSION: No change with no acute finding
--- NOTE | 2018-10-16 09:40 | PC.NURSE ---
assisted md to obtain stool for occult blood
[2018-10-16 09:47] LABS: Basophils % 0.3 % (0.1-2.0); Eosinophils # 0.1 K/mm3 (0.0-0.4); Eosinophils % 0.6 % (0.1-12.0); Hematocrit 44.1 % (37.0-47.0); Hemoglobin 15.6 g/dL (12.2-16.2); Lymphocytes # 2.8 K/mm3 (0.7-4.5); Lymphocytes % 21.1 % (10-50); Mean Corpuscular HGB Conc 35.4 g/dL (31.8-35.4); Mean Corpuscular Hemoglobin 31.9 pg (27.0-31.2); Mean Corpuscular Volume 90.1 fl (81-99); Mean Platelet Volume 7.3 fl (7.4-10.4); Monocytes # 0.5 K/mm3 (0.1-1.0); Monocytes % 3.6 % (1.7-9.3); Neutrophils % 74.4 % (37.0-80.0); Platelet Count 285 K/mm3 (142-424); Red Blood Count 4.89 M/mm3 (4.20-5.40); Red Cell Distribution Width 12.7 % (11.5-17.5); White Blood Count 13.5 K/mm3 (4.8-10.8)
[2018-10-16 09:48] LABS: Occult Blood,Stool Negative (Negative)
[2018-10-16 09:52] VITALS: BP 120/80; PULSE 76; O2SAT 100
[2018-10-16 10:04] LABS: Alanine Aminotransferase 22 U/L (12-78); Albumin Level 3.7 gm/dL (3.4-5.0); Albumin/Globulin Ratio 0.8 (1.1-1.8); Alkaline Phosphatase 115 U/L (46-116); Anion Gap 9.9 mEq/L (5-15); Aspartate Amino Transferase 10 U/L (15-37); Bilirubin,Total 0.5 mg/dL (0.2-1.0); Blood Urea Nitrogen 6 mg/dL (7-18); Calcium 9.6 mg/dL (8.5-10.1); Carbon Dioxide 30 mmol/L (21.0-32.0); Chloride 101 mmol/L (98-107); Creatinine Clearance Estimated 129 mL/min (50-200); Creatinine,Serum 0.63 mg/dL (0.55-1.02); Estimated Glomerular Filt Rate 102 ml/min (>60); GFR (African American) 124 ML/MIN (>60); Globulin 4.4 gm/dl (1.3-3.2); Glucose 100 mg/dL (74-106); Sodium 138 mmol/L (136-145); Total Protein,Serum 8.1 gm/dL (6.4-8.2); Troponin I < 0.02 ng/ml (0.00-0.06)
[2018-10-16 10:08] LABS: D-Dimer < 100 ng/mL (0-400); Potassium 2.9 mmoL/L (3.5-5.1)
--- NOTE | 2018-10-16 10:15 | PC.NURSE ---
critical potassium level reported to .
[2018-10-16 10:23] VITALS: BP 113/73; PULSE 90; RESP 17; O2SAT 99
[2018-10-16 11:02] VITALS: BP 115/73; PULSE 78; RESP 18; TEMP 36.6; O2SAT 100
== END 2018-10-16 11:03 | disposition home or self-care (01) ==
PROVIDERS: Emergency Provider Emergency Medicine; PCP Internal Medicine Adolescent Medicine
DX: R04.2 Hemoptysis (principal); K92.0 Hematemesis; F33.1 Major depressive disorder, recurrent, moderate; F41.9 Anxiety disorder, unspecified; R51 Headache
CPT/HCPCS: 71046; 80053; 82272; 84484; 85025; 85378; 93005; 96365; 96375; 99284; G0328; J2405

== ENCOUNTER → 2019-08-20 17:51 | Outpatient (CLI) | payer BC, SELFPAY ==
[2019-08-20 17:53] LABS: Adenovirus F 40/41, stool Not Detected (NotDetected); Astrovirus Not Detected (NotDetected); Campylobacter Not Detected (NotDetected); Clostridium Difficile A/B, PCR Not Detected (NotDetected); Cryptosporidium Not Detected (NotDetected); Cyclospora Cayetanesis Not Detected (NotDetected); Entamoeba histolytica Not Detected (NotDetected); Enteroaggregative E coli Not Detected (NotDetected); Enteropathogenic E coli Not Detected (NotDetected); Enterotoxigenic E coli Not Detected (NotDetected); Giardia lamblia Not Detected (NotDetected); Norovirus Not Detected (NotDetected); Plesimonas Shigalloides, PCR Not Detected (NotDetected); Rotavirus A Not Detected (NotDetected); Salmonella, PCR Not Detected (NotDetected); Sapovirus Not Detected (NotDetected); Shiga-like toxin E coli Not Detected (NotDetected); Shigella Enterovasive E coli Not Detected (NotDetected); Vibrio Cholerae Not Detected (NotDetected); Vibrio, PCR Not Detected (NotDetected); Yersinia Entercolitica, PCR Not Detected (NotDetected)
== END ==
PROVIDERS: Internal Medicine Adolescent Medicine; Visit Provider Nurse Practitioner
DX: R19.7 Diarrhea, unspecified (principal)
CPT/HCPCS: 87507

== ENCOUNTER → 2019-12-14 16:31 | Outpatient (CLI) | payer BC, SELFPAY ==
[2019-12-16 15:38] LABS: Covid-19 Nasal PCR Sendout Lex NOT DETECTED
== END ==
PROVIDERS: PCP Family Medicine; Visit Provider Family Medicine
DX: Z03.818 Encounter for observation for suspected exposure to other biological agents ruled out (principal)
CPT/HCPCS: U0004

== ENCOUNTER 2019-12-26 16:26 | Emergency (ER) | payer BC, SELFPAY ==
[2019-12-26 16:27] VITALS: BP 136/89; PULSE 101; RESP 20; TEMP 36.9; O2SAT 100; BMI 30.3
--- NOTE | 2019-12-26 17:16 | HMH.EDUTC ---
[facility] Disposition Clinical Impression: Nausea and vomiting Qualifiers: Vomiting type: unspecified Vomiting Intractability: unspecified Qualified Code(s): R11.2 - Nausea with vomiting, unspecified Disposition: Home, Self-Care Condition on Discharge: Good Instructions: DI for Nausea -- Adult, Nausea and Vomiting-Adult, Ondansetron Additional Instructions: ? Drink extra fluids with and between meals. If you have difficulty drinking, try very small amounts of water or suck on ice chips. ? Avoid fruit juices, as these do not replace minerals and can actually increase diarrhea. ? Children and adults can use sports drinks to replenish electrolytes. Younger children and infants should use products formulated for children, like oral rehydration solutions. ? Eat food in small amounts and let your stomach recover. ? Get lots of rest. You may feel tired or weak. ? No greasy or fried foods for the next 24-48 hours BRAT diet Bananas Rice Apples and [place] ? Make sure to drink plenty of liquids ? Return if needed ? Straight to ER if any life threatening symptoms ? Zofran as prescribed ? You was given an outpatient order for diarrhea panel, please collect specimen and bring back to outpatient lab then call back to the [facility] or follow up with family doctor for results ? Follow up with family doctor in the next 48-72 hours if no improvement or any worsening of symptoms Make sure that you are drinking plenty of fluids like water and gatoraid to keep yourself hydrated Prescriptions: Ondansetron [Zofran 4mg ODT] 4 mg PO Q8HP PRN #6 tab.rapdis PRN Reason: Nausea Transmission Status: Pending to [facility] Referrals: Mark Holm MD [Primary Care Provider] - As needed Forms: Work/School Release Time of Disposition: 17:51 Medical Decision Making - Hector Inquiry Pt receiving controlled substance: No Hector was queried for this patient: No Vital Signs: 12/26/19 16:27 Temperature 98.4 F Temperature Source Oral Pulse Rate [Radial] 101 H Respiratory Rate 20 Blood Pressure [Right Arm] 136/89 Blood Pressure Mean [Right Arm] 104 Blood Pressure Source [Right Arm] Automatic Cuff Blood Pressure Position [Right Arm] Sitting 02 Sat by Pulse Oximetry 100 Oxygen Delivery Method Room Air Orders (Tests/Meds): ED MEDICATIONS Discontinued Medications Generic Name Dose Route Start Last Admin Trade Name Luis Angel PRN Reason Stop Dose Admin Ondansetron HCl 4 mg 12/26/19 17:17 12/26/19 17:23 Zofran 4mg Odt SL 12/26/19 17:18 4 mg ONCE ONE Administration [facility] HPI - General Stated complaint: Vomiting Time Seen by Provider: 12/26/19 17:16 Mode of Arrival: Ambulatory Source of Information: Patient Limitations: No Limitations Description of Symptoms (Recalled from Triage Doc. by RN): vomiting everytime she eats since last night. HEENT Symptoms (Recalled from RN notes): No Resp Symptoms (Recalled from RN notes): No Skin Symptoms (Recalled from RN notes): No MS Symptoms (Recalled from RN notes): No Functional Status (Recalled from RN notes): wnl - History of Present Illness Provider Complaint: Patient states that she has been having some nausea and vomiting since last night States that she vomiting once last night and twice today States that her nausea has come and gone and worse after eating today States that she came in to see if she could get something for her nausea - Related Data Home Medications Medication Instructions Recorded Confirmed Citalopram Hydrobromide 20 mg PO DAILY 01/23/18 08/19/19 [Citalopram HBr] estradioL [Estradiol] 1 tab PO DAILY 01/23/18 08/19/19 Pantoprazole Sodium [Protonix 40mg 40 mg PO DAILY 04/12/18 08/19/19 tablet] Previous Rx's Medication Instructions Recorded Benzonatate [Tessalon Perle 100mg 100 mg PO TID PRN #30 cap 08/20/19 Cap*] Amoxicillin/Potassium Clav 1 tab PO Q12H 10 Days #20 tab 08/21/19 [Augmentin 875-125 Tablet] Promethazine/Dextromethorphan 5 ml PO
[2019-12-26 17:52] VITALS: BP 136/89; PULSE 101; RESP 20; TEMP 36.9; O2SAT 100
== END 2019-12-26 17:53 | disposition home or self-care (01) ==
PROVIDERS: Emergency Provider Nurse Practitioner; PCP Family Medicine
DX: R11.2 Nausea with vomiting, unspecified (principal); F41.9 Anxiety disorder, unspecified; Z90.79 Acquired absence of other genital organ(s); F17.210 Nicotine dependence, cigarettes, uncomplicated
CPT/HCPCS: 99201

== ENCOUNTER → 2019-12-30 14:34 | Outpatient (CLI) | payer BC, SELFPAY ==
--- NOTE | 2019-12-30 14:44 | XR_ITS ---
PROCEDURE: XR HUMERUS LT CLINICAL INDICATION: Numbness and tingling COMPARISON: No exams were available for comparison FINDINGS: No fracture or dislocation. No lytic or blastic change. There is normal mineralization. The joint spaces are well-preserved. No significant degenerative/arthritic changes. No erosive changes evident. Other findings:There is an area of exostosis involving the mid shaft of the humerus medially consistent with a tug lesion. This is well-circumscribed and has a benign appearance. IMPRESSION: No acute findings. Dictated by: Everton You MD 12/30/2019 15:33 Electronically signed by Everton You MD in [place] 12/30/2019 15:33
--- NOTE | 2019-12-30 14:44 | XR_ITS ---
PROCEDURE: XR CERVICAL SPINE 4V CLINICAL INDICATION: MASS OF SOFT TISSUE OF L UPPER EXTR, [place]ON UPPER EXTR NUMBNESS Numbness and tingling and pain COMPARISON: No exams were available for comparison FINDINGS: Normal alignment. No fracture or dislocation. No significant degenerative change. No lytic or blastic change. IMPRESSION: Negative cervical spine Dictated by: Everton You MD 12/30/2019 15:28 Electronically signed by Everton You MD in [place] 12/30/2019 15:28
== END ==
LOC: RAD 14:35
PROVIDERS: PCP Family Medicine; Visit Provider Nurse Practitioner Family
DX: M79.89 Other specified soft tissue disorders (principal); R20.0 Anesthesia of skin
CPT/HCPCS: 72050; 73060

== ENCOUNTER → 2020-01-31 07:45 | Outpatient (CLI) | payer BC, SELFPAY ==
--- NOTE | 2020-01-31 07:59 | US_ITS ---
PROCEDURE: US EXTREMITY LT LIMITED CLINICAL INDICATION: SOFT TISSUE MASS LT UPPER ARM COMPARISON: CR XR HUMERUS LT from 12/30/2019 FINDINGS: No soft tissue mass is evident in the area of palpable concern. The area of palpable abnormality is felt represent the greater tuberosity of the humerus IMPRESSION: The area of palpable concern in the left shoulder may represent the greater tuberosity. This could be confirmed with CT if clinically desired. Dictated by: Everton You MD 01/31/2020 15:45 Everton You MD in [place] 01/31/2020 15:45
== END ==
PROVIDERS: PCP Family Medicine; Visit Provider Nurse Practitioner Family
DX: M79.89 Other specified soft tissue disorders (principal)
CPT/HCPCS: 76882

== ENCOUNTER → 2020-05-01 10:27 | Outpatient (CLI) | payer BC, SELFPAY | PROVIDERS: PCP Nurse Practitioner Family; Visit Provider Nurse Practitioner Family | DX: Z03.818 Encounter for observation for suspected exposure to other biological agents ruled out (principal) | CPT/HCPCS: U0003 ==

== ENCOUNTER 2020-07-11 12:06 | Emergency (ER) | payer BC, SELFPAY ==
[2020-07-11 12:40] VITALS: BP 123/76; PULSE 93; RESP 14; TEMP 37.1; O2SAT 98; BMI 29.9
--- NOTE | 2020-07-11 13:15 | HMH.EDUTC ---
[facility] Dis[place] Clinical Impression: COVID-19, COPD exacerbation Disposition: Home, Self-Care Condition on Discharge: Good Instructions: DI for COVID-19 (Suspected or Confirmed ), Preventing the Spread of Coronavirus Discharge Instructions Additional Instructions: Drink plenty of fluids. Take tylenol for pain or fever. Return if you begin to have difficulty breathing. Follow up with your regular doctor. GO TO THE ER FOR ANY WORSENING SYMPTOMS Prescriptions: guaiFENesin [Mucinex 600mg tablet] 1 - 2 tab PO BIDP PRN #30 tab.er.12h PRN Reason: Congestion Transmission Status: Received by [facility] Benzonatate [Tessalon Perle 100mg Cap] 100 mg PO TIDP PRN #30 cap PRN Reason: Cough Transmission Status: Received by [facility] Azithromycin [Z-Michael 250mg Tab*] 250 mg PO UD DOSE PK #6 tab Transmission Status: Received by [facility] Referrals: Mabel Escalera APRN [Primary Care Provider] - Time of Disposition: 13:23 Medical Decision Making - Medical Records Medical records reviewed: No: I reviewed the patient's medical records. - Hector Inquiry Pt receiving controlled substance: No Vital Signs: 07/11/20 12:40 07/11/20 13:24 Temperature 98.7 F 98.7 F Temperature Source Oral Pulse Rate 93 H Pulse Rate [Right Brachial] 93 H Respiratory Rate 14 14 Blood Pressure 123/76 Blood Pressure [Right Arm] 123/76 Blood Pressure Mean [Right Arm] 91 Blood Pressure Source [Right Arm] Automatic Cuff Blood Pressure Position [Right Arm] Sitting 02 Sat by Pulse Oximetry 98 Oxygen Delivery Method Room Air Orders (Tests/Meds): ORDERS Category Date Time Status Covid-19 Nasal PCR Sendout P&C Routine Lab 07/11/20 12:35 Received [facility] [place] HPI - General Stated complaint: covid test Time Seen by Provider: 07/11/20 13:15 Mode of Arrival: Ambulatory Source of Information: Patient Limitations: No Limitations Description of Symptoms (Recalled from Triage Doc. by RN): COVID TEST D/T EXPOSURE HEENT Symptoms (Recalled from RN notes): No Resp Symptoms (Recalled from RN notes): No Skin Symptoms (Recalled from RN notes): No MS Symptoms (Recalled from RN notes): No Functional Status (Recalled from RN notes): WNL - History of Present Illness Provider Complaint: She states that she tested positive for covid last week at her job (on a rapid test). Her had himself tested here yesterday (not a rapid test) and his results was negative. She came in today to have a more accurate covid test. She also a cough and chest tightness and body aches. - Related Data Home Medications Medication Instructions Recorded Confirmed Citalopram Hydrobromide 20 mg PO DAILY 01/23/18 08/19/19 [Citalopram HBr] estradioL [Estradiol] 1 tab PO DAILY 01/23/18 08/19/19 Pantoprazole Sodium [Protonix 40mg 40 mg PO DAILY 04/12/18 08/19/19 tablet] Previous Rx's Medication Instructions Recorded Benzonatate [Tessalon Perle 100mg 100 mg PO TID PRN #30 cap 08/20/19 Cap*] Amoxicillin/Potassium Clav 1 tab PO Q12H 10 Days #20 tab 08/21/19 [Augmentin 875-125 Tablet] Promethazine/Dextromethorphan 5 ml PO Q6HP PRN #240 syrup 08/21/19 [Promethazine-Dm Syrup] methylPREDNISolone [Medrol] 4 mg PO DIRECTED 6 Days #21 08/21/19 tab.ds.pk Ondansetron [Zofran 4mg ODT] 4 mg PO Q8HP PRN #6 tab.rapdis 12/26/19 Azithromycin [Z-Michael 250mg Tab*] 250 mg PO UD DOSE PK #6 tab 07/11/20 Benzonatate [Tessalon Perle 100mg 100 mg PO TIDP PRN #30 cap 07/11/20 Cap] guaiFENesin [Mucinex 600mg tablet] 1 - 2 tab PO BIDP PRN #30 07/11/20 tab.er.12h Allergies Allergy/AdvReac Type Severity Reaction Status Date / Time No Known Allergies Allergy Verified 08/19/19 16:40 - Worker's Comp Is this a Worker's Comp case?: No [facility] History - Hepatitis A Screen Drug use history?: No High risk sexual behaviors?: No History of sexually transmitted infection?: No 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
[2020-07-11 13:24] VITALS: BP 123/76; PULSE 93; RESP 14; TEMP 37.1; O2SAT 98
[2020-07-12 10:13] LABS: Covid-19 Nasal PCR Sendout P&C POSITIVE
--- NOTE | 2020-07-12 13:13 | PC.NURSE ---
PT NOTIFIED OF POSITIVE COVID RESULT
== END 2020-07-11 13:29 | disposition home or self-care (01) ==
PROVIDERS: Emergency Provider Nurse Practitioner Family; PCP Nurse Practitioner Family
DX: U07.1 COVID-19 (principal); J44.1 Chronic obstructive pulmonary disease with (acute) exacerbation; F41.9 Anxiety disorder, unspecified; F17.210 Nicotine dependence, cigarettes, uncomplicated
CPT/HCPCS: 99202; G0463; U0004

== ENCOUNTER 2020-09-05 21:52 | Emergency (ER) | payer BC, SELFPAY ==
[2020-09-05 21:53] VITALS: BP 134/87; PULSE 69; RESP 14; TEMP 36.6; O2SAT 97; BMI 29.2
--- NOTE | 2020-09-05 22:19 | CT_ITS ---
PROCEDURE: CT ABDOMEN PELVIS W CON CLINICAL INDICATION: abd pain Generalized abdominal pain with diarrhea COMPARISON: CT ABDPELWO CT abdomen pelvis wo con from 08/10/2018 TECHNIQUE: IV Contrast: 75ML Isovue 370 Oral Contrast None Axial images obtained with sagittal and coronal reformats. All CT scans at the facility use one or more dose reduction, viz: automated exposure control, ma/kV adjustment per patient size (including targeted exams where dose is matched to indication, i.e. head), or iterative reconstruction technique. FINDINGS: The liver, spleen, adrenal glands, pancreas, and kidneys have an unremarkable appearance. There is a extrarenal right pelvis. No intestinal obstruction or free air. There is a lipomatosis ileocecal valve. No evidence of appendicitis. No intestinal obstruction or free air. Prior hysterectomy. There is a tiny umbilical hernia containing fat. There are few colonic diverticula but no evidence of diverticulitis. No acute bony finding. IMPRESSION: No acute finding Dictated by: Everton You MD 09/06/2020 05:46 Everton You MD in [place] 09/06/2020 05:46
[2020-09-05 22:27] LABS: Microscopic, Urine URINE MICROSCOPIC (MICROSCOPIC)
[2020-09-05 22:30] VITALS: BP 129/87; PULSE 79; O2SAT 97
[2020-09-05 22:31] LABS: Appearance,Urine CLEAR (Clear); Bilirubin,Urine Negative (Negative); Blood, Urine Negative (Negative); Color,Urine YELLOW (Yellow); Glucose,Urine (UA) Negative (Negative); Ketones,Urine Negative (Negative); Leukocyte Esterase,Urine Negative (Negative); Nitrate,Urine Negative (Negative); Protein,Urine Negative (Negative); Specific Gravity, Urine 1.015 (1.005-1.030); Urobilinogen,Urine 0.2 EU/dl (0.2)
[2020-09-05 22:32] LABS: Basophils # 0.1 K/mm3 (0-0.2); Basophils % 0.5 % (0.1-2.0); Eosinophils # 0.1 K/mm3 (0.0-0.4); Eosinophils % 1.1 % (0.1-12.0); Hematocrit 43.5 % (37.0-47.0); Hemoglobin 14.7 g/dL (12.2-16.2); Lymphocytes # 4.6 K/mm3 (0.7-4.5); Lymphocytes % 45.9 % (10-50); Mean Corpuscular HGB Conc 33.7 g/dL (31.8-35.4); Mean Corpuscular Hemoglobin 31.2 pg (27.0-31.2); Mean Corpuscular Volume 92.6 fl (81-99); Mean Platelet Volume 7.5 fl (7.4-10.4); Monocytes # 0.5 K/mm3 (0.1-1.0); Monocytes % 4.7 % (1.7-9.3); Neutrophils # 4.7 K/mm3 (1.8-7.8); Neutrophils % 47.7 % (37.0-80.0); Platelet Count 247 K/mm3 (142-424); Red Blood Count 4.69 M/mm3 (4.20-5.40); White Blood Count 9.9 K/mm3 (4.8-10.8)
[2020-09-05 22:36] LABS: Alanine Aminotransferase 14 U/L (12-78); Albumin Level 4.3 g/dl (3.5-5.0); Albumin/Globulin Ratio 1.4 (1.1-1.8); Alkaline Phosphatase 88 U/L (38-126); Amylase 63 U/L (30-110); Anion Gap 9.8 mEq/L (5-15); Aspartate Amino Transferase 26 U/L (14-36); Bilirubin,Total 0.4 mg/dl (0.2-1.3); Blood Urea Nitrogen 9 mg/dl (7-17); Calcium 9.8 mg/dl (8.4-10.2); Carbon Dioxide 29 mmol/L (22.0-30.0); Chloride 101 mmol/L (98-107); Creatinine Clearance Estimated 161 mL/min (50-200); Estimated Glomerular Filt Rate 133 ml/min (>60); GFR (African American) 161 ML/MIN (>60); Glucose 104 mg/dl (74-100); Lipase 83 U/L (23-300); Sodium 137 mmol/L (136-145); Total Protein,Serum 7.3 g/dl (6.3-8.2)
[2020-09-05 22:40] LABS: Potassium 2.8 mmoL/L (3.5-5.1)
--- NOTE | 2020-09-05 22:40 | PC.NURSE ---
Critical Potassium called by lab and given to Dr cruz
[2020-09-05 22:41] LABS: C-Reactive Protein 3.9 mg/L (0-4)
[2020-09-05 22:44] LABS: Bacteria,Urine 1+ /lpf
[2020-09-05 23:00] VITALS: BP 117/84; PULSE 83; O2SAT 96
[2020-09-05 23:06] LABS: Erythrocyte Sedimentation Rate 22 mm/hr (0-20)
--- NOTE | 2020-09-05 23:16 | HMH.EDNVD ---
ED Disposition Clinical Impression: Flank pain, acute, Hypokalemia Disposition: Home, Self-Care Condition on Discharge: Good Instructions: DI for Flank Pain Additional Instructions: use meds and call pcp in am Referrals: Mark Holm MD [Primary Care Provider] - - Critical Care Critical Care Time: No Attestation: On 09/05/20, the high probability of a clinically significant, sudden or life threatening deterioration of the following system(s) required my full and direct attention, intervention and personal management. The time I documented below is in addition to time spent performing reported procedures but includes the following listed in this critical care notation. Medical Decision Making - Medical Records Medical records reviewed: Yes: I reviewed the patient's medical records. - Hector Inquiry Pt receiving controlled substance: No Vital Signs: 09/05/20 21:53 09/05/20 22:30 09/05/20 23:00 Temperature 97.8 F Temperature Source Oral Pulse Rate 79 83 Pulse Rate [Right] 69 Respiratory Rate 14 Blood Pressure 129/87 117/84 Blood Pressure [Right Arm] 134/87 Blood Pressure Mean 98 92 Blood Pressure Mean [Right Arm] 102 02 Sat by Pulse Oximetry 97 97 96 Oxygen Delivery Method Room Air - Lab Data Lab results reviewed: Yes: I reviewed the patient's lab results. Lab Results 09/05/20 22:07: Urine Color Yellow, Urine Appearance Clear, Urine pH 6.0, Ur Specific [place] 1.015, Urine Protein Negative, Urine Glucose (UA) Negative, Urine Ketones Negative, Urine Blood Negative, Urine Nitrate Negative, Urine Bilirubin Negative, Urine Urobilinogen 0.2, Ur Leukocyte Esterase Negative, Urine WBC 3-5, Ur Squamous Epith Cells 10-20, Urine Bacteria 1+ 09/05/20 22:07: WBC 9.9, RBC 4.69, Hgb 14.7, Hct 43.5, MCV 92.6, MCH 31.2, MCHC 33.7, RDW 13.0, Plt Count 247, MPV 7.5, Neut % (Auto) 47.7, Lymph % (Auto) 45.9, [place] % (Auto) 4.7, Eos % (Auto) 1.1, Baso % (Auto) 0.5, Neut # (Auto) 4.7, Lymph # (Auto) 4.6 H, [place] # (Auto) 0.5, Eos # (Auto) 0.1, Baso # (Auto) 0.1, ESR 22 H 09/05/20 22:07: Sodium 137, Potassium 2.8 L*, Chloride 101, Carbon Dioxide 29, Anion Gap 9.8, BUN 9, Creatinine 0.50 L, Estimated Creat Clear 161, Estimated GFR 133, Est GFR ( Amer) 161, Glucose 104 H, Calcium 9.8, Total Bilirubin 0.4, AST 26, ALT 14, Alkaline Phosphatase 88, C-Reactive Protein 3.9, Total Protein 7.3, Albumin 4.3, Globulin 3.0, Albumin/Globulin Ratio 1.4, Amylase 63, Lipase 83, Procalcitonin 0.040 Result diagrams: 09/05/20 22:07 09/05/20 22:07 Orders (Tests/Meds): ED MEDICATIONS Generic Name Dose Route Start Last Admin Trade Name Freq PRN Reason Stop Dose Admin Sodium Chloride 1,000 mls @ 999 mls/hr 09/05/20 22:30 09/05/20 22:22 Sod Chlor 0.9% 1000ml Bag IV 09/05/20 23:30 999 mls/hr .Q1H1M AYLIN Administration Discontinued Medications Generic Name Dose Route Start Last Admin Trade Name Freq PRN Reason Stop Dose Admin Hydromorphone HCl 1 mg 09/05/20 23:29 09/05/20 23:34 Hydromorphone 2mg/Ml Syringe IV 09/05/20 23:30 1 mg ONCE ONE Administration Iopamidol 75 ml 09/05/20 22:57 09/05/20 22:58 Iopamidol-370 (76%);100ml Bottle IV 09/05/20 22:58 75 ml ONCE ONE Administration Ketorolac Tromethamine 30 mg 09/05/20 22:19 09/05/20 22:22 Ketorolac 30mg/Ml Vial IV 09/05/20 22:20 30 mg ONCE ONE Administration Methylprednisolone Sodium Succinate 125 mg 09/05/20 23:28 09/05/20 23:35 Methylprednisolone Sod Succ 125mg Vial IV 09/05/20 23:29 125 mg ONCE ONE Administration Ondansetron HCl 4 mg 09/05/20 22:19 09/05/20 22:22 Ondansetron 4mg/2ml Vial IV 09/05/20 22:20 4 mg ONCE ONE Administration Potassium Chloride 40 meq 09/05/20 23:28 09/05/20 23:35 Potassium Chloride 20meq Tab PO 09/05/20 23:29 40 meq ONCE ONE Administration Promethazine HCl 12.5 mg 09/05/20 23:29 09/05/20 23:35 Promethazine Hcl 25mg/Ml 1ml Vial IV 09/05/20 23:30 12.5
[2020-09-05 23:59] VITALS: BP 110/84; PULSE 81; RESP 14; TEMP 36.6; O2SAT 96
== END 2020-09-06 00:01 | disposition home or self-care (01) ==
PROVIDERS: Emergency Provider Emergency Medicine; PCP Family Medicine
DX: R10.12 Left upper quadrant pain (principal); E87.6 Hypokalemia; F41.9 Anxiety disorder, unspecified; F17.210 Nicotine dependence, cigarettes, uncomplicated; Z90.710 Acquired absence of both cervix and uterus
CPT/HCPCS: 74177; 80053; 81001; 82150; 83690; 84145; 85025; 85651; 86140; 96375; 99283; J2405; Q9967

== ENCOUNTER → 2020-11-15 14:21 | Outpatient (CLI) | payer BC, SELFPAY | LOC: RT 14:23 | PROVIDERS: PCP Internal Medicine Adolescent Medicine; Visit Provider Internal Medicine Adolescent Medicine | DX: R07.9 Chest pain, unspecified (principal); R05 Cough | CPT/HCPCS: 94060 ==

== ENCOUNTER 2021-01-22 18:39 | Emergency (ER) | payer BC, SELFPAY ==
--- NOTE | 2021-01-22 20:37 | XR_ITS ---
PROCEDURE INFORMATION: Exam: XR Right Foot Exam date and time: 01/22/2021 8:37 PM Age: 45 years old Clinical indication: Right; Patient HX: Pain to toes and some swelling; Additional info: Fell, injury TECHNIQUE: Imaging protocol: XR Right foot. Views: 3 or more views. COMPARISON: CR [id number] XR foot RT min 3V 03/28/2018 6:13 PM FINDINGS: Bones/joints: No fracture. No malalignment. Soft tissues: Normal. IMPRESSION: No acute osseous abnormality
--- NOTE | 2021-01-22 20:37 | XR_ITS ---
PROCEDURE INFORMATION: Exam: XR Right Ankle Exam date and time: 01/22/2021 8:37 PM Age: 45 years old Clinical indication: Right; Patient HX: Pain in toes, some swelling; Additional info: Fell, injury TECHNIQUE: Imaging protocol: XR Right ankle. Views: 3 or more views. COMPARISON: CR [id number] XR foot RT min 3V 03/28/2018 6:13 PM FINDINGS: Bones/joints: Normal. Soft tissues: Mild bi malleolar soft tissue swelling. IMPRESSION: No acute findings.
[2021-01-22 20:39] VITALS: BP 145/90; PULSE 82; RESP 16; TEMP 36.8; O2SAT 99; BMI 30.7
--- NOTE | 2021-01-22 21:06 | HMH.EDUTC ---
[facility] [place] Impression: Contusion of right foot Qualifiers: Encounter type: initial encounter Qualified Code(s): S90.31XA - Contusion of right foot, initial encounter Disposition: Home, Self-Care Condition on Discharge: Good Instructions: DI for Foot Pain, DI for Foot Sprain Additional Instructions: Rest the extremity, apply ice for 15 minutes as tolerated three or four times per day, Elevate the extremity as tolerated while you are resting. Take ibuprofen for pain. I sent in a prescription to your pharmacy. Follow up with Dr. Sesay (podiatry). Sometimes there can be fractures that don't show up well on the first set of x-rays. So, you should follow up if you continue to have symptoms. I put in a referral but you need to call her office and schedule an appointment. Follow up with your regular doctor. GO TO THE ER FOR ANY WORSENING SYMPTOMS Prescriptions: Ibuprofen [Ibuprofen 600mg Tablet] 600 mg PO Q6HP PRN #30 tab PRN Reason: Mild Pain Transmission Status: Received by [facility] Referrals: Mark Soto MD [Primary Care Provider] - Carolina Sesay DPM [Staff Physician] - Forms: Work/School Release Time of Disposition: 21:35 Medical Decision Making - Medical Records Medical records reviewed: No: I reviewed the patient's medical records. - Hector Inquiry Pt receiving controlled substance: No Vital Signs: 01/22/21 20:39 01/22/21 21:55 Temperature 98.3 F 98 F Temperature Source Oral Pulse Rate 82 Pulse Rate [Left] 82 Respiratory Rate 16 22 Blood Pressure 139/87 Blood Pressure [Right Arm] 145/90 H Blood Pressure Mean [Right Arm] 108 02 Sat by Pulse Oximetry 99 - Radiology Data #1 Image(s): Foot/Toes Image Reviewed: Yes I reviewed the patient's radiology image, Yes I have reviewed radiologist's interpretation Preliminary Findings: Normal/NAD, No Fracture Seen PROCEDURE INFORMATION: Exam: XR Right Foot Exam date and time: 01/22/2021 8:37 PM Age: 45 years old Clinical indication: Right; Patient HX: Pain to toes and some swelling; Additional info: Fell, injury TECHNIQUE: Imaging protocol: XR Right foot. Views: 3 or more views. COMPARISON: CR [id number] XR foot RT min 3V 03/28/2018 6:13 PM FINDINGS: Bones/joints: No fracture. No malalignment. Soft tissues: Normal. IMPRESSION: No acute osseous abnormality #2 Image(s): Ankle Image Reviewed: Yes I reviewed the patient's radiology image, Yes I have reviewed radiologist's interpretation Preliminary Findings: Normal/NAD, No Fracture Seen PROCEDURE INFORMATION: Exam: XR Right Ankle Exam date and time: 01/22/2021 8:37 PM Age: 45 years old Clinical indication: Right; Patient HX: Pain in toes, some swelling; Additional info: Fell, injury TECHNIQUE: Imaging protocol: XR Right ankle. Views: 3 or more views. COMPARISON: CR [id number] XR foot RT min 3V 03/28/2018 6:13 PM FINDINGS: Bones/joints: Normal. Soft tissues: Mild bi malleolar soft tissue swelling. IMPRESSION: No acute findings. [facility] [place] HPI - General Stated complaint: AO 01/22 injured R Foot Time Seen by Provider: 01/22/21 21:06 Mode of Arrival: Ambulatory Source of Information: Patient Limitations: No Limitations Description of Symptoms (Recalled from Triage Doc. by RN): pt states she was trying to kick at a spider and fell injuring her R foot/ankle around 1030. HEENT Symptoms (Recalled from RN notes): No Resp Symptoms (Recalled from RN notes): No Skin Symptoms (Recalled from RN notes): No MS Symptoms (Recalled from RN notes): Yes (R foot/ankle pain) Functional Status (Recalled from RN notes): na - History of Present Illness Provider Complaint: This morning she was trying to kill a spider by kicking it. She killed the spider, but she hurt her right foot and ankl
[2021-01-22 21:55] VITALS: BP 139/87; PULSE 82; RESP 22; TEMP 36.6
== END 2021-01-22 21:55 | disposition home or self-care (01) ==
PROVIDERS: Emergency Provider Nurse Practitioner Family; PCP Internal Medicine Adolescent Medicine
DX: S90.31XA Contusion of right foot, initial encounter (principal); W19.XXXA Unspecified fall, initial encounter
CPT/HCPCS: 29515; 73610; 73630; 99202; G0463

== ENCOUNTER 2021-02-17 08:05 | Emergency (ER) | payer BC, SELFPAY ==
--- NOTE | 2021-02-17 08:01 | ECG_ITS ---
APPROVED REPORT Exam: Resting ECG HR:92 bpm ECG Measurements Heart Rate 92 AXES MI 130 P 47 QRSd 78 QRS 9 QT 378 T 43 QTc 467 Conclusion Normal sinus rhythm Prolonged QT Abnormal ECG Electronically signed by : Mark Soto MD 02/19/2021 20:43:19
[2021-02-17 08:06] VITALS: BP 146/84; PULSE 88; RESP 18; TEMP 36.7; O2SAT 98; BMI 30.2
[2021-02-17 08:08] VITALS: BMI 30.2
--- NOTE | 2021-02-17 08:08 | XR_ITS ---
PROCEDURE INFORMATION: Exam: XR Chest Exam date and time: 02/17/2021 8:08 AM Age: 45 years old Clinical indication: Sternal or substernal pain; Patient HX: Smoker, fluttering sensation in chest for 2 days. No chest surgeries. ; Additional info: Cp TECHNIQUE: Imaging protocol: XR of the chest. Views: 2 views. COMPARISON: CR CXR2V XR chest 2V 10/16/2018 9:46 AM FINDINGS: Lungs: Unremarkable. No consolidation. There is no focal mass. Pleural spaces: Unremarkable. No pleural effusion. No pneumothorax. Heart/Mediastinum: Unremarkable. No cardiomegaly. Bones/joints: Unremarkable. There is no acute fracture present. IMPRESSION: No evidence for acute cardiac or pulmonary process.
--- NOTE | 2021-02-17 08:15 | PC.NURSE ---
PT TO XR VIA WHEELCHAIR.
[2021-02-17 08:17] LABS: Basophils # 0.1 K/mm3 (0-0.2); Basophils % 0.9 % (0.1-2.0); Eosinophils # 0.1 K/mm3 (0.0-0.4); Eosinophils % 0.9 % (0.1-12.0); Hematocrit 42.7 % (37.0-47.0); Hemoglobin 14.6 g/dL (12.2-16.2); Lymphocytes # 2.6 K/mm3 (0.7-4.5); Lymphocytes % 27.7 % (10-50); Mean Corpuscular HGB Conc 34.2 g/dL (31.8-35.4); Mean Corpuscular Hemoglobin 31.7 pg (27.0-31.2); Mean Corpuscular Volume 92.7 fl (81-99); Mean Platelet Volume 8.8 fl (7.4-10.4); Monocytes # 0.5 K/mm3 (0.1-1.0); Monocytes % 5.1 % (1.7-9.3); Neutrophils # 6.2 K/mm3 (1.8-7.8); Neutrophils % 65.4 % (37.0-80.0); Platelet Count 298 K/mm3 (142-424); Red Blood Count 4.61 M/mm3 (4.20-5.40); Red Cell Distribution Width 13.5 % (11.5-17.5); White Blood Count 9.5 K/mm3 (4.8-10.8)
--- NOTE | 2021-02-17 08:20 | HMH.EDGENADL ---
ED Disposition Clinical Impression: Atypical chest pain, Hypokalemia Disposition: Home, Self-Care Condition on Discharge: Good Instructions: DI for Atypical Chest Pain, DI for Hypokalemia Additional Instructions: Potassium as prescribed. Follow-up with your primary care provider for further evaluation of chest discomfort and low potassium. Additional instructions for CHEST PAIN: See your physician as soon as possible for further evaluation. Return immediately if worsening chest pain, vomiting, shortness of breath, fever, coughing of blood. Prescriptions: Potassium Chloride [K-Tab ER 20 mEq] 20 meq PO DAILY #7 tab Transmission Status: Pending to [facility] Referrals: Mark Soto MD [Primary Care Provider] - - Critical Care Critical Care Time: No Attestation: On 02/17/21, the high probability of a clinically significant, sudden or life threatening deterioration of the following system(s) required my full and direct attention, intervention and personal management. The time I documented below is in addition to time spent performing reported procedures but includes the following listed in this critical care notation. Medical Decision Making - Hector Inquiry Pt receiving controlled substance: No Vital Signs: 02/17/21 08:06 Temperature 98.1 F Temperature Source Oral Pulse Rate [Right] 88 Respiratory Rate 18 Blood Pressure [Right Arm] 146/84 H Blood Pressure Mean [Right Arm] 104 02 Sat by Pulse Oximetry 98 Oxygen Delivery Method Room Air - Lab Data Lab results reviewed: Yes: I reviewed the patient's lab results. Lab Results 02/17/21 08:05: WBC 9.5, RBC 4.61, Hgb 14.6, Hct 42.7, MCV 92.7, MCH 31.7 H, MCHC 34.2, RDW 13.5, Plt Count 298, MPV 8.8, Neut % (Auto) 65.4, Lymph % (Auto) 27.7, [place] % (Auto) 5.1, Eos % (Auto) 0.9, Baso % (Auto) 0.9, Neut # (Auto) 6.2, Lymph # (Auto) 2.6, [place] # (Auto) 0.5, Eos # (Auto) 0.1, Baso # (Auto) 0.1 02/17/21 08:05: Sodium 140, Potassium 2.9 L*, Chloride 99, Carbon Dioxide 33 H, Anion Gap 10.9, BUN 5 L, Creatinine 0.50 L, Estimated Creat Clear 170, Estimated GFR 132, Est GFR ( Amer) 160, Glucose 122 H, Calcium 9.1, Total Bilirubin 0.3, AST 22, ALT 17, Alkaline Phosphatase 79, Troponin I < 0.01, Total Protein 7.1, Albumin 4.0, Globulin 3.1, Albumin/Globulin Ratio 1.3 02/17/21 08:05: Magnesium 1.9 Result diagrams: 02/17/21 08:05 02/17/21 08:05 Orders (Tests/Meds): ED MEDICATIONS Discontinued Medications Generic Name Dose Route Start Last Admin Trade Name Freq PRN Reason Stop Dose Admin Aspirin 325 mg 02/17/21 08:27 02/17/21 08:27 Aspirin 325mg Tablet PO 02/17/21 08:28 325 mg ONCE ONE Administration Potassium Chloride 40 meq 02/17/21 08:29 02/17/21 08:42 Potassium Chloride 20meq Tab PO 02/17/21 08:30 40 meq ONCE ONE Administration ORDERS Category Date Time Status XR chest 2V Stat Exams 02/17/21 08:08 Taken Troponin I Q3H Lab 02/17/21 11:15 Ordered Troponin I Q3H Lab 02/17/21 14:15 Ordered - Radiology Data #1 Image(s): Chest Image Reviewed: Yes I reviewed the patient's radiology image Preliminary Findings: Normal/NAD - ECG Data Tracing #1 EKG interpreted by Jack Ace MD: Rhythm: sinus Rate: 92 [place]: normal Ectopy: none Conduction: normal ST Segment Changes: none T Wave Changes: none Q Waves: none No evidence of acute ischemia or injury - JONI Score for Non-Stemi Age of Patient: 40-49 years old Heart Rate: 70-89 bpm Systolic Blood Pressure: 140-159 mmHg Serum Creatinine: 0.40-0.79 mg/dl CHF [place] Class: I-No CHF Other Risk Factors: None Non-Stemi Risk Score: 62 Medical Decision Narrative: Review of prior labs shows chronically low potassium. Likely due to her chronic diarrhea. She is aware of this and does not take any supplements. General Adult HPI - General Stated complaint: chest pain Time Seen by Provider: 02/17/21 08:20 - History of Pres
[2021-02-17 08:25] LABS: Alanine Aminotransferase 17 U/L (12-78); Albumin/Globulin Ratio 1.3 (1.1-1.8); Alkaline Phosphatase 79 U/L (38-126); Anion Gap 10.9 mEq/L (5-15); Aspartate Amino Transferase 22 U/L (14-36); Bilirubin,Total 0.3 mg/dl (0.2-1.3); Blood Urea Nitrogen 5 mg/dl (7-17); Calcium 9.1 mg/dl (8.4-10.2); Carbon Dioxide 33 mmol/L (22.0-30.0); Chloride 99 mmol/L (98-107); Creatinine Clearance Estimated 170 mL/min (50-200); Estimated Glomerular Filt Rate 132 ml/min (>60); GFR (African American) 160 ML/MIN (>60); Globulin 3.1 g/dL (1.3-3.2); Glucose 122 mg/dl (74-100); Sodium 140 mmol/L (136-145); Total Protein,Serum 7.1 g/dl (6.3-8.2)
[2021-02-17 08:27] LABS: Potassium 2.9 mmoL/L (3.5-5.1)
[2021-02-17 08:37] LABS: Troponin I < 0.01 ng/ml (0.00-0.034)
[2021-02-17 08:41] LABS: Magnesium 1.9 mg/dl (1.6-2.3)
[2021-02-17 09:13] VITALS: BP 119/67; PULSE 78; RESP 18; TEMP 36.6; O2SAT 98
== END 2021-02-17 09:14 | disposition home or self-care (01) ==
PROVIDERS: Emergency Provider Emergency Medicine; PCP Internal Medicine Adolescent Medicine
DX: R07.89 Other chest pain (principal); E87.6 Hypokalemia; F41.9 Anxiety disorder, unspecified; J44.9 Chronic obstructive pulmonary disease, unspecified; I25.10 Atherosclerotic heart disease of native coronary artery without angina pectoris; Z86.73 Personal history of transient ischemic attack (TIA), and cerebral infarction without residual deficits; Z79.899 Other long term (current) drug therapy
CPT/HCPCS: 71046; 80053; 83735; 84484; 85025; 93005; 99283

== ENCOUNTER → 2021-02-26 08:27 | Outpatient (CLI) | payer BC, SELFPAY ==
[2021-02-26 10:32] LABS: Chloride 102 mmol/L (98-107); Potassium 3.7 mmoL/L (3.5-5.1); Sodium 140 mmol/L (136-145)
[2021-02-26 10:35] LABS: Anion Gap 10.7 mEq/L (5-15); Blood Urea Nitrogen 4 mg/dl (7-17); Calcium 9.2 mg/dl (8.4-10.2); Carbon Dioxide 31 mmol/L (22.0-30.0); Estimated Glomerular Filt Rate 132 ml/min (>60); GFR (African American) 160 ML/MIN (>60); Glucose 121 mg/dl (74-100); Magnesium 1.6 mg/dl (1.6-2.3)
[2021-02-26 11:03] LABS: Thyroid Stimulating Hormone 2.25 uIU/mL (0.465-4.68)
== END ==
PROVIDERS: Visit Provider Nurse Practitioner Family
DX: E87.6 Hypokalemia (principal); R00.2 Palpitations
CPT/HCPCS: 36415; 80048; 83735; 84443

== ENCOUNTER → 2021-02-28 10:41 | Outpatient (CLI) | payer BC, SELFPAY | LOC: RT 10:43 | PROVIDERS: PCP Internal Medicine Adolescent Medicine; Visit Provider Nurse Practitioner Family | DX: R00.2 Palpitations (principal) | CPT/HCPCS: 93225; 93226 ==

== ENCOUNTER → 2021-03-05 15:36 | Outpatient (CLI) | payer BC, SELFPAY | PROVIDERS: PCP Internal Medicine Adolescent Medicine; Visit Provider Nurse Practitioner | DX: Z20.822 Contact with and (suspected) exposure to COVID-19 (principal) | CPT/HCPCS: C9803; U0003; U0005 ==

== ENCOUNTER → 2021-05-15 12:18 | Outpatient (CLI) | payer BC, SELFPAY | PROVIDERS: PCP Internal Medicine Adolescent Medicine; Visit Provider Nurse Practitioner | DX: Z20.822 Contact with and (suspected) exposure to COVID-19 (principal) | CPT/HCPCS: C9803; U0003; U0005 ==

== ENCOUNTER → 2021-06-13 07:06 | Outpatient (CLI) | payer BC, SELFPAY ==
[2021-06-13 07:59] LABS: Basophils # 0.1 K/mm3 (0-0.2); Basophils % 1.2 % (0.1-2.0); Eosinophils # 0.1 K/mm3 (0.0-0.4); Eosinophils % 0.6 % (0.1-12.0); Hemoglobin 13.8 g/dL (12.2-16.2); Lymphocytes # 2.6 K/mm3 (0.7-4.5); Lymphocytes % 22.6 % (10-50); Mean Corpuscular HGB Conc 32.2 g/dL (31.8-35.4); Mean Corpuscular Volume 99.5 fl (81-99); Mean Platelet Volume 7.9 fl (7.4-10.4); Monocytes # 0.7 K/mm3 (0.1-1.0); Monocytes % 6.3 % (1.7-9.3); Neutrophils # 7.9 K/mm3 (1.8-7.8); Neutrophils % 69.3 % (37.0-80.0); Platelet Count 261 K/mm3 (142-424); Red Blood Count 4.32 M/mm3 (4.20-5.40); Red Cell Distribution Width 13.7 % (11.5-17.5); White Blood Count 11.4 K/mm3 (4.8-10.8)
[2021-06-13 08:08] LABS: Hemoglobin A1C 5.1 % (4.0-6.0)
[2021-06-13 09:00] LABS: Alanine Aminotransferase 35 U/L (12-78); Albumin Level 3.7 g/dl (3.5-5.0); Albumin/Globulin Ratio 1.5 (1.1-1.8); Alkaline Phosphatase 108 U/L (38-126); Anion Gap 5.8 mEq/L (5-15); Aspartate Amino Transferase 32 U/L (14-36); Bilirubin,Total 0.7 mg/dl (0.2-1.3); Blood Urea Nitrogen 8 mg/dl (7-17); Calcium 9.2 mg/dl (8.4-10.2); Carbon Dioxide 36 mmol/L (22.0-30.0); Chloride 99 mmol/L (98-107); Chol/HDL Ratio 5.5 (1-3.5); Cholesterol 269 mg/dl (140-200); Estimated Glomerular Filt Rate 132 ml/min (>60); GFR (African American) 160 ML/MIN (>60); Globulin 2.5 g/dL (1.3-3.2); Glucose 101 mg/dl (74-100); HDL Cholesterol 49 mg/dl (40-60); Potassium 3.8 mmoL/L (3.5-5.1); Sodium 137 mmol/L (136-145); Total Protein,Serum 6.2 g/dl (6.3-8.2); Triglycerides 137 mg/dl (30-150); VLDL Cholesterol 27 mg/dL (0-40)
[2021-06-13 09:49] LABS: Vitamin B12 246 pg/mL (239-931)
[2021-06-13 09:56] LABS: 25-OH Vitamin D, Total 17.2 ng/mL (30-100)
== END ==
LOC: LAB 07:07
PROVIDERS: Visit Provider Nurse Practitioner Family
DX: M54.9 Dorsalgia, unspecified (principal); E55.9 Vitamin D deficiency, unspecified; E53.8 Deficiency of other specified B group vitamins; R73.9 Hyperglycemia, unspecified; J44.9 Chronic obstructive pulmonary disease, unspecified
CPT/HCPCS: 36415; 80053; 80061; 82306; 82607; 83036; 85025

== ENCOUNTER → 2021-06-20 15:57 | Outpatient (CLI) | payer BC, SELFPAY ==
--- NOTE | 2021-06-20 16:00 | MM_ITS ---
PROCEDURE INFORMATION: Exam: MG Bilateral Screening 3D Mammography Exam date and time: 06/20/2021 4:00 PM Age: 45 years old Clinical indication: Encounter for screening mammogram for malignant neoplasm of breast TECHNIQUE: Imaging protocol: Bilateral screening tomosynthesis and 2D mammography including computer-aided detection (CAD) when performed. COMPARISON: 1. MG DMSB DIG MAMM-SCREEN [place] 12/09/2014 8:30 AM 2. MG DMDXUWAL DIG MAMM-DX UNI LT ADD VIEW 10/22/2013 1:46 PM 3. MG DMSB DIG MAMM-SCREEN [place] 10/11/2013 10:50 AM FINDINGS: MAMMOGRAPHY: Breast composition: There are scattered areas of fibroglandular density. Mass: No suspicious masses. Architectural distortion: No suspicious distortion. Calcifications: No suspicious calcifications. Asymmetric density: None. Skin thickening: None. Axillary adenopathy: None. IMPRESSION: No mammographic evidence of malignancy. Annual screening is recommended unless otherwise clinically indicated. ASSESSMENT: BI-RADS Category 1: Negative
== END ==
PROVIDERS: PCP Internal Medicine Adolescent Medicine; Visit Provider Nurse Practitioner Family
DX: Z12.31 Encounter for screening mammogram for malignant neoplasm of breast (principal)
CPT/HCPCS: 77063; 77067

== ENCOUNTER → 2021-06-25 17:01 | Outpatient (CLI) | payer BC, SELFPAY | PROVIDERS: Visit Provider Nurse Practitioner | DX: Z20.822 Contact with and (suspected) exposure to COVID-19 (principal) | CPT/HCPCS: C9803; U0003; U0005 ==

== ENCOUNTER → 2021-06-30 12:33 | Outpatient (CLI) | payer BC, SELFPAY | PROVIDERS: PCP Internal Medicine Adolescent Medicine; Visit Provider Surgery | DX: Z01.812 Encounter for preprocedural laboratory examination (principal); U07.1 COVID-19 | CPT/HCPCS: C9803; U0003; U0005 ==

== ENCOUNTER → 2021-08-31 15:58 | Outpatient (CLI) | payer BC, SELFPAY ==
[2021-08-31 16:02] LABS: Adenovirus F 40/41, stool Not Detected (NotDetected); Astrovirus Not Detected (NotDetected); Campylobacter Not Detected (NotDetected); Clostridium Difficile A/B, PCR Not Detected (NotDetected); Cryptosporidium Not Detected (NotDetected); Cyclospora Cayetanesis Not Detected (NotDetected); Entamoeba histolytica Not Detected (NotDetected); Enteroaggregative E coli Not Detected (NotDetected); Enteropathogenic E coli Not Detected (NotDetected); Enterotoxigenic E coli Not Detected (NotDetected); Giardia lamblia Not Detected (NotDetected); Plesimonas Shigalloides, PCR Not Detected (NotDetected); Rotavirus A Not Detected (NotDetected); Salmonella, PCR Not Detected (NotDetected); Sapovirus Not Detected (NotDetected); Shiga-like toxin E coli Not Detected (NotDetected); Shigella Enterovasive E coli Not Detected (NotDetected); Vibrio Cholerae Not Detected (NotDetected); Vibrio, PCR Not Detected (NotDetected); Yersinia Entercolitica, PCR Not Detected (NotDetected)
[2021-08-31 21:48] LABS: Norovirus Detected (NotDetected)
[2021-09-06 16:37] LABS: Lactoferrin, Fecal, Quant. 4.86 ug/mL(g) (0.00-7.24)
[2021-09-06 18:12] LABS: Calprotectin, Fecal 62 ug/g (0-120)
== END ==
PROVIDERS: Visit Provider Internal Medicine Adolescent Medicine
DX: R19.7 Diarrhea, unspecified (principal); A08.11 Acute gastroenteropathy due to Norwalk agent
CPT/HCPCS: 83630; 83993; 87507

== ENCOUNTER 2021-12-20 18:29 | Emergency (ER) | payer BC, SELFPAY ==
[2021-12-20 19:31] VITALS: BP 136/81; PULSE 91; RESP 17; TEMP 36.7; O2SAT 100; BMI 32.1
--- NOTE | 2021-12-20 19:38 | HMH.EDUTC ---
[facility] [place] Clinical Impression: Low back pain Qualifiers: Chronicity: acute Back pain laterality: bilateral Sciatica presence: with sciatica Sciatica laterality: bilateral sciatica Qualified Code(s): M54.42 - Lumbago with sciatica, left side Radiculopathy Qualifiers: Spinal region: lumbar Qualified Code(s): M54.16 - Radiculopathy, lumbar region Disposition: Home, Self-Care Condition on Discharge: Good Instructions: DI for Low Back Pain, Methylprednisolone Injection Additional Instructions: Go home and rest. It would be best if you rested tomorrow too. No heavy lifting. No twisting. Take the oral medications as directed. The muscle relaxer (cyclobenzaprine--Flexeril) will make you drowsy, so don't drive or operate heavy machinery after taking it. Don't start the oral steroids (medrol dose pack) until tomorrow, since you had the shots in here today. Follow up with your regular doctor. GO TO THE ER FOR ANY WORSENING SYMPTOMS OR CONCERN, ESPECIALLY BOWEL OR BLADDER ISSUES, SADDLE AREA NUMBNESS, FEVER, ETC Prescriptions: Cyclobenzaprine HCl [Cyclobenzaprine 10mg Tab] 10 mg PO BIDP PRN #20 tab PRN Reason: Muscle Spasm Transmission Status: Received by [facility] methylPREDNISolone [Medrol] 4 mg PO DIRECTED 6 Days #21 packet Transmission Status: Received by [facility] Referrals: Mark Soto MD [Primary Care Provider] - Forms: Work/School Release Time of Disposition: 20:10 Medical Decision Making - Medical Records Medical records reviewed: No: I reviewed the patient's medical records. - Hector Inquiry Pt receiving controlled substance: No Vital Signs: 12/20/21 19:31 12/20/21 20:19 Temperature 98.1 F 98.1 F Temperature Source Oral Pulse Rate 91 H Pulse Rate [Left] 91 H Respiratory Rate 17 17 Blood Pressure 136/81 Blood Pressure [Right Arm] 136/81 Blood Pressure Mean [Right Arm] 99 02 Sat by Pulse Oximetry 100 - Lab Data Lab Results 12/20/21 19:29: Urine Color Yellow, Urine Appearance Clear, Urine pH 6.5, Ur Specific [place] <= 1.005, Urine Protein Negative, Urine Glucose (UA) Negative, Urine Ketones Negative, Urine Blood Negative, Urine Nitrate Negative, Urine Bilirubin Negative, Urine Urobilinogen 0.2, Ur Leukocyte Esterase Negative Orders (Tests/Meds): ED MEDICATIONS Discontinued Medications Generic Name Dose Route Start Last Admin Trade Name Luis Angel PRN Reason Stop Dose Admin Ketorolac Tromethamine 60 mg 12/20/21 19:59 12/20/21 20:08 Ketorolac 60mg/2ml Vial IM 12/20/21 20:00 60 mg ONCE ONE Administration Methylprednisolone Sodium Succinate 125 mg 12/20/21 19:59 12/20/21 20:08 Methylprednisolone Sod Succ 125mg Vial IM 12/20/21 20:00 125 mg ONCE ONE Administration [facility] [place] - General Stated complaint: lower back pain Time Seen by Provider: 12/20/21 19:38 Description of Symptoms (Recalled from Triage Doc. by RN): patient comes in with lower back pain. pain has been going on for 1 week. pain radiates around to her abdomen, no injury known. patient states it does not burn when she urinates but she is urinating more frequently. HEENT Symptoms (Recalled from RN notes): No Resp Symptoms (Recalled from RN notes): No Skin Symptoms (Recalled from RN notes): No MS Symptoms (Recalled from RN notes): Yes Functional Status (Recalled from RN notes): wnl - History of Present Illness Provider Complaint: She states that for the past 2 days she has had low back pain that radiates down her legs. - Related Data Home Medications Medication Instructions Recorded Confirmed Citalopram Hydrobromide 20 mg PO DAILY 01/23/18 06/28/21 [Citalopram HBr] estradioL [Estradiol] 1 tab PO DAILY 01/23/18 06/28/21 [id number]/Sod Sulf,Bicarb,Cl/KCl 240 ml PO Q10M 06/28/21 [Peg-3350 and Electrolytes Soln] methylPREDNISolone [Medrol] 4 mg PO DIRECTED 06/28/21 Previous Rx's Medication Instructions Recorded Cyclobenzapri
[2021-12-20 20:19] VITALS: BP 136/81; PULSE 91; RESP 17; TEMP 36.7
[2021-12-20 20:24] LABS: Apearance,Urine Clear (Clear); Color,Urine Yellow (Yellow); Glucose,Urine (UA) Negative (Negative); Ketones,Urine Negative (Negative); PH,Urine 6.5 (5.0-8.5); Protein,Urine Negative (Negative); Specific Gravity, Urine <= 1.005 (1.005-1.030)
[2021-12-20 20:25] LABS: Bilirubin,Urine Negative (Negative); Blood, Urine Negative (Negative); UTC Leukocyte Esterase,Urine Negative (Negative); UTC Nitrate,Urine Negative (Negative); Urobilinogen,Urine 0.2 EU/dl (0.2)
== END 2021-12-20 20:24 | disposition home or self-care (01) ==
PROVIDERS: Emergency Provider Nurse Practitioner Family; PCP Internal Medicine Adolescent Medicine
DX: M54.42 Lumbago with sciatica, left side; M54.16 Radiculopathy, lumbar region
CPT/HCPCS: 81003; 96372; 99212; G0463

== ENCOUNTER 2022-02-11 12:25 | Emergency (ER) | payer BC, SELFPAY ==
[2022-02-11 14:20] VITALS: BP 131/88; PULSE 91; RESP 19; TEMP 36.8; O2SAT 97; BMI 27.6
--- NOTE | 2022-02-11 14:31 | EXP.UTC ---
Discharge Plan Disposition Patient Disposition: Home, Self-Care Condition: Good Prescriptions Prescriptions: New ondansetron 4 mg tablet,disintegrating 4 mg PO Q8H PRN (Reason: nausea and vomiting) 3 Days Qty: 9 0RF No Action methylprednisolone 4 MG tablets,dose pack 4 mg PO DIRECTED peg 3350-electrolytes 4,000 ML recon soln 240 ml PO Q10M Rx Instructions: until fecal effluent is clear cyclobenzaprine 10 MG tablet 10 mg PO BIDP PRN (Reason: Muscle Spasm) Qty: 20 0RF methylprednisolone 4 MG tablets,dose pack 4 mg PO DIRECTED 6 Days Qty: 21 0RF citalopram 20 MG tablet 20 mg PO DAILY estradiol 1 tablet 1 tab PO DAILY Referrals Follow up/Referrals: Will Zhang MD [Primary Care Provider] - See instructions Activity Restrictions/Add. Instructions Additional Instructions/Restrictions: *Monitor Temp, Over the counter Motrin or Tylenol as directed/as needed Tylenol every 4 hours and Motrin every 6 hours (as long as your family doctor has told you that you can take it) for fever or pain. and straight to ER if unable to lower temp less than 101.0 after medication given *Warm salt water gargles may help to soothe the throat *Throat Lozenges? *Warm fluids like tea with honey may help to soothe the throat? *Sleep elevated *Humidifier/Vaporizer Take your prescribed Flexeril as prescribed Follow up IMMEDIATELY for new or worsening symptoms or no Noticeable improvement over the next 48-72 hours. 911 for difficulty breathing or swallowing You were tested for today for COVID19 your test result should be back in the next 24-48 hours, you may may check your results on the [facility] My Health Portal Make sure to take your Vitamins Vit. 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 by RN): PATIENT C/O VOMITING, COUGH, WEAKNESS IN LEGS, AND HEADACHE SINCE YESTERDAY HEENT Symptoms (Recalled from RN notes): Yes Resp Symptoms (Recalled from RN notes): No Skin Symptoms (Recalled from RN notes): No MS Symptoms (Recalled from RN notes): No Functional Status (Recalled from RN notes): WNL History of Present Illness Provider Complaint: Patient states that she works at the [employer] and several people at work has recently tested positive for COVID States that she has been feeling achy all over and in her lower back area but she hurt her back several years ago Denies new injury States that she has been having N/V, feeling achy in her back and in her legs, body aches, chills and headache that came on yesterday so today she wanted to come in and get checked when she started vomiting this morning Denies loss of control of bowel or bladder Related Data Home Medications Medication Instructions Recorded Confirmed citalopram 20 mg tablet 20 mg PO DAILY Anxiety 01/23/18 06/28/21 estradiol 1 mg tablet 1 tab PO DAILY hormone 01/23/18 06/28/21 methylprednisolone 4 mg tablets in 4 mg PO DIRECTED LUNGS 06/28/21 a dose pack peg 3350-electrolytes 236 240 ml PO Q10M BOWEL PREP 06/28/21 gram-22.74 gram-6.74 gram-5.86 gram solution Previous Rx's Medication Instructions Recorded cyclobenzaprine 10 mg tablet 10 mg PO BIDP PRN Muscle Spasm #20 12/20/21 tabs methylprednisolone 4 mg tablets in 4 mg PO DIRECTED 6 days #21 12/20/21 a dose pack packets ondansetron 4 mg disintegrating 4 mg PO Q8H PRN nausea and 02/11/22 tablet vomiting 3 days #9 tabs Allergies Allergy/AdvReac Type
[2022-02-11 15:03] LABS: Apearance,Urine Clear (Clear); Color,Urine Yellow (Yellow)
[2022-02-11 15:04] LABS: Bilirubin,Urine Negative (Negative); Blood, Urine Negative (Negative); Glucose,Urine (UA) Negative (Negative); Ketones,Urine Negative (Negative); Protein,Urine Negative (Negative); Specific Gravity, Urine 1.025 (1.005-1.030); UTC Leukocyte Esterase,Urine Negative (Negative); UTC Nitrate,Urine Negative (Negative); Urobilinogen,Urine 0.2 EU/dl (0.2)
[2022-02-11 15:12] VITALS: BP 131/88; PULSE 91; RESP 19; TEMP 36.8; O2SAT 97
== END 2022-02-11 15:15 | disposition home or self-care (01) ==
PROVIDERS: Emergency Provider Nurse Practitioner; PCP Internal Medicine Adolescent Medicine
DX: B34.9 Viral infection, unspecified (principal); R11.2 Nausea with vomiting, unspecified; R53.1 Weakness; M54.50 Low back pain, unspecified; R51.9 Headache, unspecified; R05.9 Cough, unspecified; Z20.822 Contact with and (suspected) exposure to COVID-19
CPT/HCPCS: 81003; 99212; C9803; G0463; U0003; U0005

== ENCOUNTER 2022-05-06 12:24 | Emergency (ER) | payer BC, SELFPAY ==
[2022-05-06 12:32] VITALS: PULSE 84; RESP 16; O2SAT 98; BMI 26.6
[2022-05-06 13:45] VITALS: BP 103/85; PULSE 91; RESP 18; TEMP 36.8; O2SAT 98; BMI 28.1
--- NOTE | 2022-05-06 14:19 | EXP.UTC ---
Discharge Plan Disposition Patient Disposition: Home, Self-Care Condition: Good Prescriptions Prescriptions: New methylprednisolone [Medrol (Michael)] 4 mg tablets,dose pack See Rx Instructions .Route .COMPLEX 6 Days Qty: 21 0RF Rx Instructions: taper pack; cyclobenzaprine 10 mg tablet 10 mg PO TID PRN (Reason: muscle spasm) Qty: 15 0RF No Action methylprednisolone 4 MG tablets,dose pack 4 mg PO DIRECTED peg 3350-electrolytes 4,000 ML recon soln 240 ml PO Q10M Rx Instructions: until fecal effluent is clear cyclobenzaprine 10 MG tablet 10 mg PO BIDP PRN (Reason: Muscle Spasm) Qty: 20 0RF methylprednisolone 4 MG tablets,dose pack 4 mg PO DIRECTED 6 Days Qty: 21 0RF citalopram 20 MG tablet 20 mg PO DAILY estradiol 1 tablet 1 tab PO DAILY ondansetron 4 mg tablet,disintegrating 4 mg PO Q8H PRN (Reason: nausea and vomiting) 3 Days Qty: 9 0RF Referrals Follow up/Referrals: Mark Soto MD [Primary Care Provider] - See instructions Activity Restrictions/Add. Instructions Additional Instructions/Restrictions: *Ibuprofen aretha 6 hours with meal as needed for pain/inflammation *Remember you had a Toradol shot in the clinic today, which is similar to Motrin *Not additional anti-inflammatory like motrin, aleve, advil with the above amount of ibuprofen. You can still take Tylenol every 4 hours as needed if you need something else for pain *Ice 20 minutes every 2 hours for the first 48 hours after the initial injury followed by moist heat every 20 minutes 3-4 times a day to affected area *Muscle relaxer every 8 hours as needed for muscle spasms but remember, it WILL cause drowsiness You cannot take it and drive, operate machinery or care for small children. *Keep this area active, no movement leads to more stiffness, However take it easy and avoid heavy lifting pushing or pulling *Follow up with you family doctor if no improvement for further treatment Start oral steriods tomorrow Clinical Impressions Clinical Impression: Low back pain Stand Alone Forms Stand Alone Forms: Work/School Release Instructions Patient Instructions: Low Back Pain, DI for Low Back Pain, DI for Sciatica Discharge ED Provider: Mandi Neves [facility] [place] General Stated complaint: LT abd pain, buttox pain, LT leg numbness Mode of Arrival: Ambulatory Source of Information: Patient Limitations: No Limitations Time Seen by Provider: 05/06/22 14:20 Description of Symptoms (Recalled from Triage Doc. by RN): PATIENT C/O PAIN THAT STARTS LEFT LOWER BACK THAT RADIATES DOWN LEG THAT STARTED THIS MORNING HEENT Symptoms (Recalled from RN notes): No Resp Symptoms (Recalled from RN notes): No Skin Symptoms (Recalled from RN notes): No MS Symptoms (Recalled from RN notes): Yes Functional Status (Recalled from RN notes): WNL History of Present Illness Provider Complaint: Patient states that she woke up this morning with pain in her left buttock/lower back area going down into her left upper leg States that pain is worse if she lays on that side or with walking denies loss of control of bowel or bladder States that she has had sciatica before and feels like that Related Data Home Medications Medication Instructions Recorded Confirmed citalopram 20 mg tablet 20 mg PO DAILY Anxiety 01/23/18 06/28/21 estradiol 1 mg tablet 1 tab PO DAILY hormone 01/23/18 06/28/21 methylprednisolone 4 mg tablets in 4 mg PO DIRECTED LUNGS 06/28/21 a dose pack peg 3350-electrolytes 236 240 ml PO Q10M BOWEL PREP 06/28/21 gram-22.74 gram-6.74 gram-5.86 gram solution Previous Rx's Medication Instructions Recorded cyclobenzaprine 10 mg tablet 10 mg PO BIDP PRN Muscle Spasm #20 12/20/21 tabs methylprednisolone 4 mg tablets in 4 mg PO DIRECTED 6 days #21 12/20/21 a dose pack packets ondansetron 4 mg disintegrating 4 mg PO Q8H PRN nausea and 02/11/22 tablet vomiting 3 days #9 tabs cyclobenz
[2022-05-06 14:38] VITALS: BP 103/85; PULSE 91; RESP 18; TEMP 36.8; O2SAT 98
== END 2022-05-06 15:01 | disposition home or self-care (01) ==
PROVIDERS: Emergency Provider Nurse Practitioner; PCP Internal Medicine Adolescent Medicine
DX: M54.50 Low back pain, unspecified (principal); R10.30 Lower abdominal pain, unspecified
CPT/HCPCS: 96372; 99212; G0463

== ENCOUNTER 2022-06-05 15:00 | Outpatient (RCR) | payer BC, SELFPAY ==
--- NOTE | 2022-05-21 13:51 | HMH.PTOPEV ---
PT Outpatient Evaluation Rehab PT Outpatient Evaluation Start: 05/21/22 13:34 Freq: Status: Active Protocol: Document 05/21/22 13:35 DONNY (Rec: 05/21/22 13:51 DONNY [id number]) E-signed By Kieran Mao, PT Outpatient Therapy Subjective History Subjective History Pt reports bending down at work ~2 weeks ago and feeling 'a pull' in the left glut/hip area. Pt reports left hip s/s have progressed with pain down to left lateral calf mm, and referred pain into left lumbar region as well. Pt reports h/ o low back injuries w/most recent 'another lifting disc injury in 1999'. 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 Chief Complaint Pain,Stiff,Paresthesia, Weakness Symptom Type Ache,Sharp,Dull,Numbness, Tingling Symptoms Relieved By Rest/Positioning,OTC Meds Symptoms Aggravated By Bending/Stooping,Physical Activity,Twisting,Lifting Prior Functional Limitations None Current Functional Limitations Lifting,Housework,Standing, Walking,Bending/Stooping Symptom Description Constant but Variable Level of pain today (0-10) 2 Pain scale - at its best (0-10) 1 Pain scale - at its worst (0-10) 10 Lumbopelvic Eval Posture Thoracic Spine Posture Standing Position Neutral Lumbar Spine Posture Standing Position Neutral Gait Observation General Gait Pattern Observation Antalgic Gait Palapation tenderness left lumbar spinal tenderness Yes: 3/4 paraspinal tenderness Yes: 3/4 buttock tenderness Yes: 3/4 Lumbar/Sacral Palpation Findings Tenderness,Muscle Guarding Accessory Movement L-spine Vertebrae Accessory Movements [employer] [place] that Elicit Symptoms L2 left L3 left L4 left L5 left Range of Motion Lumbar Spine Active Flexion Range of 0-20 Motion (degrees) Lumbar Spine Active Extension Range of 0-10 Motion (degrees) Left Lumbar Spine Lateral Flexion Active 0-20 Range of Motion (degrees) Right Lumbar Spine Lateral Flexion 0-20 Active Range of Motion (degrees) Lumbar Spine ROM Limitations Pain Manual Muscle Test Right Knee Extension Strength Grade 5 Normal Knee Flexion Strength G
== END 2022-06-05 15:05 | disposition home or self-care (01) ==
LOC: PT 15:00
PROVIDERS: PCP Internal Medicine Adolescent Medicine; Visit Provider Nurse Practitioner Family
DX: M54.32 Sciatica, left side (principal)
CPT/HCPCS: 97012; 97110; 97163

== ENCOUNTER → 2022-07-29 14:32 | Outpatient (CLI) | payer BC, SELFPAY ==
--- NOTE | 2022-07-29 14:39 | XR_ITS ---
FINAL REPORT CLINICAL HISTORY: SCIATICA COMPARISON: 04/28/2018 FINDINGS: AP, lateral, and oblique views of the lumbar spine were obtained. There is no acute fracture or acute malalignment. Vertebral body height is preserved. There has been slight progression of degenerative disease, most pronounced at L3-4. No acute paraspinal abnormality is identified. IMPRESSION: No acute osseous abnormalities lumbar spine. Slight progression of degenerative disease, most pronounced at L3-4. Reviewed, Interpreted and Dictated by Meghan Wells MD Transcribed by Cara Gruber Authenticated and . [facility]
== END ==
LOC: RAD 14:32
PROVIDERS: PCP Nurse Practitioner Family; Visit Provider Nurse Practitioner Family
DX: M54.32 Sciatica, left side (principal)
CPT/HCPCS: 72110

== ENCOUNTER → 2022-08-06 11:29 | Outpatient (POV) | payer BC, SELFPAY ==
[2022-08-06 11:51] VITALS: BP 148/99; PULSE 105; RESP 20; TEMP 36.2; O2SAT 99; BMI 32.0
--- NOTE | 2022-08-06 12:32 | EXP.PAIN.OV ---
HPI Data of Consult Patient: new to practice Consult date: 08/06/22 Requesting Physician: Tirso Chandler CRNA Primary Care Provider: Mark Soto MD Consult Narrative Reason for consult: Lumbar back pain. Left hip and leg radicular symptoms. History of present illness: Ms. Soria is a 46 year old female who comes our clinic today for initial evaluation regarding acute low back pain she describes as constant, dull, sharp and stabbing. She also complains of left hip and leg radicular symptoms to the foot. Radicular pattern is posterior thigh to the anterior left calf muscle. Including the foot. She rates her pain 10/10. Patient presents in a wheelchair today due to difficulty with ambulation. 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 CC: Tirso Chandler CRNA [facility] Disclaimer: The information contained in this section may have been updated after the patient was seen, as this information can be updated by other users. Medical History (Updated 08/06/22 @ 12:35 by Tirso Chandler CRNA) Anxiety COPD (chronic obstructive pulmonary disease) Depression GERD (gastroesophageal reflux disease) History of left heart catheterization Hyperlipidemia UTI (urinary tract infection) Surgical History History of hysterectomy History of tubal ligation S/P tympanic tube insertion Family History (Updated 08/06/22 @ 12:05 by Ana Laura Dunbar RN) Other No significant family history Social History (Updated 08/06/22 @ 12:05 by Ana Laura Dunbar RN) Smoking Status: Heavy tobacco smoker tobacco type: cigarettes packs per day: 2 second hand exposure: Yes alcohol intake: never substance use type: unknown current occupational status: employed Travel in the last 8 weeks: None household members: spouse housing: house caffeine: Yes Review of Systems Review of Systems Review of systems (narrative): Patient is awake alert [place] x3. In no acute distress. Flexion-extension lumbar spine guarded secondary to pain. Deep tendon reflexes upper and lower extremities normal. Motor strength upper and lower extremities normal. There is no gross sensory deficit. Gait is antalgic. Patient presents in a wheelchair today due to the distance from the parking lot to our clinic. Meds Home Medications and Allergies Home Medications Medication Instructions Recorded Confirmed Type citalopram 20 mg tablet 20 mg PO DAILY Anxiety 01/23/18 08/06/22 History estradiol 1 mg tablet 1 tab PO DAILY hormone 01/23/18 08/06/22 History peg 3350-electrolytes 236 240 ml PO Q10M BOWEL PREP 06/28/21 History gram-22.74 gram-6.74 gram-5.86 gram solution ondansetron 4 mg disintegrating 4 mg PO Q8H PRN nausea and 02/11/22 08/06/22 Rx tablet vomiting 3 days #9 tabs diclofenac sodium 75 mg 75 mg PO BID Pain 08/06/22 08/06/22 History tablet,delayed release methocarbamol 500 mg tablet 500 mg PO TIDP PRN muscle spasms 08/06/22 08/06/22 History pantoprazole 40 mg tablet,delayed 40 mg PO DAILY GERD 08/06/22 08/06/22 History release spironolactone 50 mg tablet 50 mg PO BID fluid 08/06/22 08/06/22 History New Prescriptions to Start Prescriptions: Allergies Allergy/AdvReac Type Severity Reaction Status Date / Time No Known Allergies Allergy Verified 12/20/21 19:34 Objective Vital signs: Temp Pulse Resp BP Pulse Ox 97.2 F L 105 H 20 148/99 H 99 08/06/22 11:51 08/06/22 11:51 08/06/22 11:51 08/06/22 11:51 08/06/22 11:51 Assessment and Plan *Assessment and plan (1) Lumbar back pain with radiculopathy affecting left lower extremity: Status: Acute Category: Medical Code(s): M54.16 - Radiculopathy, lumbar region Plan Discussed in detail with the patient and her regarding treatment options. Patient has 600 mg ibuprofen at home. She has been taking this with minimal to no reli
== END ==
PROVIDERS: PCP Internal Medicine Adolescent Medicine; Visit Provider Nurse Anesthetist, Certified Registered
DX: M54.16 Radiculopathy, lumbar region (principal); M54.50 Low back pain, unspecified; F17.210 Nicotine dependence, cigarettes, uncomplicated
CPT/HCPCS: 99202; G0463

== ENCOUNTER → 2022-08-20 13:57 | Outpatient (CLI) | payer BC, SELFPAY ==
[2022-08-20 14:09] VITALS: BP 135/91; PULSE 100; RESP 20; TEMP 36.9; O2SAT 99; BMI 32.0
== END ==
PROVIDERS: PCP Internal Medicine Adolescent Medicine; Visit Provider Anesthesiology
DX: M54.50 Low back pain, unspecified (principal); M25.552 Pain in left hip; F17.210 Nicotine dependence, cigarettes, uncomplicated
CPT/HCPCS: 99212; G0463

== ENCOUNTER → 2022-08-30 14:42 | Outpatient (CLI) | payer BC, SELFPAY ==
--- NOTE | 2022-08-30 15:55 | HMH.ITSTN ---
pt unable to lay flat during scan without being in pain , instructed patientt to call office to see what she can do to help relive the pain during the scan , pt also got reschulded for 09/07/22 for her mri scan , tried to call office to let them know but they was already closed for the day
== END ==
PROVIDERS: PCP Internal Medicine Adolescent Medicine; Visit Provider Nurse Practitioner Family
DX: M54.50 Low back pain, unspecified (principal)

== ENCOUNTER → 2022-09-07 08:17 | Outpatient (CLI) | payer BC, SELFPAY | PROVIDERS: PCP Internal Medicine Adolescent Medicine; Visit Provider Nurse Practitioner Family | DX: M54.9 Dorsalgia, unspecified (principal) ==

== ENCOUNTER 2022-09-07 17:06 | Emergency (ER) | payer BC, SELFPAY ==
--- NOTE | 2022-09-07 17:26 | XR_ITS ---
PROCEDURE INFORMATION: Exam: XR Chest Exam date and time: 09/07/2022 5:27 PM Age: 46 years old Clinical indication: Cough; Additional info: Pain when she breaths TECHNIQUE: Imaging protocol: Radiologic exam of the chest. Views: 2 views. COMPARISON: CR XR CHEST 2V 02/17/2021 8:09 AM FINDINGS: Lungs: Unremarkable. No consolidation. Pleural spaces: Unremarkable. No pleural effusion. No pneumothorax. Heart/Mediastinum: Unremarkable. No cardiomegaly. Bones/joints: Unremarkable. IMPRESSION: No acute findings.
[2022-09-07 17:30] VITALS: BP 100/70; PULSE 114; RESP 20; TEMP 36.9; O2SAT 99; BMI 30.9
[2022-09-07 17:43] LABS: UTC Strep Screen (Rapid) Negative (Negative)
--- NOTE | 2022-09-07 17:46 | EXP.UTC ---
Discharge Plan Disposition Patient Disposition: Home, Self-Care Condition: Good Prescriptions Prescriptions: New prednisone 10 mg tablet 10 mg PO DIRECTED 9 Days Qty: 21 0RF Rx Instructions: Take 4 tablets daily for 3 days, then take 2 tablets daily for 3 days, then take 1 tablet daily for 3 days, then stop. benzonatate [benzonatate] 100 mg capsule 100 mg PO TIDP PRN (Reason: Cough) Qty: 30 0RF amoxicillin-pot clavulanate 875-125 mg Tablet 1 tab PO Q12H Qty: 20 0RF No Action peg 3350-electrolytes 4,000 ML recon soln 240 ml PO Q10M Rx Instructions: until fecal effluent is clear diazepam [Valium] 10 mg tablet 10 mg PO ONCE Qty: 1 0RF Rx Instructions: take tablet 30 minutes prior to MRI citalopram 20 MG tablet 20 mg PO DAILY estradiol 1 tablet 1 tab PO DAILY ondansetron 4 mg tablet,disintegrating 4 mg PO Q8H PRN (Reason: nausea and vomiting) 3 Days Qty: 9 0RF methocarbamol 500 mg tablet 500 mg PO TIDP PRN (Reason: muscle spasms) pantoprazole 40 mg tablet,delayed release (DR/EC) 40 mg PO DAILY diclofenac sodium 75 mg tablet,delayed release (DR/EC) 75 mg PO BID spironolactone 50 mg tablet 50 mg PO BID Referrals Follow up/Referrals: Mark Soto MD [Primary Care Provider] - See instructions Activity Restrictions/Add. Instructions Additional Instructions/Restrictions: Drink plenty of fluids. Take tylenol or ibuprofen for pain or fever. Take the medications as directed. Follow up with your regular doctor. GO TO THE ER FOR ANY WORSENING SYMPTOMS Don't start the oral steroids until tomorrow, since you had the shot here today. Clinical Impressions Clinical Impression: COPD exacerbation Discharge ED Provider: Will Carter [facility] [place] General Stated complaint: chills,cough,congestion,pain in lungs Time Seen by Provider: 09/07/22 17:46 History of Present Illness Provider Complaint: She states that for the past 3 days she has had worsening chest and sinus congestion. She has a history of copd. Related Data Home Medications Medication Instructions Recorded Confirmed citalopram 20 mg tablet 20 mg PO DAILY Anxiety 01/23/18 08/06/22 estradiol 1 mg tablet 1 tab PO DAILY hormone 01/23/18 08/06/22 peg 3350-electrolytes 236 240 ml PO Q10M BOWEL PREP 06/28/21 gram-22.74 gram-6.74 gram-5.86 gram solution diclofenac sodium 75 mg 75 mg PO BID Pain 08/06/22 08/06/22 tablet,delayed release methocarbamol 500 mg tablet 500 mg PO TIDP PRN muscle spasms 08/06/22 08/06/22 pantoprazole 40 mg tablet,delayed 40 mg PO DAILY GERD 08/06/22 08/06/22 release spironolactone 50 mg tablet 50 mg PO BID fluid 08/06/22 08/06/22 Previous Rx's Medication Instructions Recorded ondansetron 4 mg disintegrating 4 mg PO Q8H PRN nausea and 02/11/22 tablet vomiting 3 days #9 tabs diazepam 10 mg tablet (Valium) 10 mg PO ONCE #1 tab 09/05/22 amoxicillin 875 mg-potassium 1 tab PO Q12H #20 tabs 09/07/22 clavulanate 125 mg tablet benzonatate 100 mg capsule 100 mg PO TIDP PRN Cough #30 caps 09/07/22 prednisone 10 mg tablet 10 mg PO DIRECTED 9 days #21 09/07/22 tabs Allergies Allergy/AdvReac Type Severity Reaction Status Date / Time No Known Allergies Allergy Verified 09/07/22 17:51 [facility] Disclaimer: The information contained in this section may have been updated after the patient was seen, as this information can be updated by other users. Medical History Anxiety COPD (chronic obstructive pulmonary disease) Depression GERD (gastroesophageal reflux disease) History of left heart catheterization Hyperlipidemia UTI (urinary tract infection) Surgical History History of hysterectomy History of tubal ligation S/P tympanic tube insertion Family History (Reviewed 09/07/22 @ 22:31 by Will Carter
[2022-09-07 18:48] VITALS: BP 100/70; PULSE 114; RESP 22; TEMP 36.9; O2SAT 99
== END 2022-09-07 18:47 | disposition home or self-care (01) ==
PROVIDERS: Emergency Provider Nurse Practitioner Family; PCP Internal Medicine Adolescent Medicine
DX: J44.1 Chronic obstructive pulmonary disease with (acute) exacerbation (principal); F17.210 Nicotine dependence, cigarettes, uncomplicated; Z20.822 Contact with and (suspected) exposure to COVID-19
CPT/HCPCS: 94640; 96372; 71046; 87880; 99212; 99214; C9803; G0463; U0003; U0005

== ENCOUNTER → 2022-09-11 08:14 | Outpatient (POV) | payer BC, SELFPAY ==
[2022-09-11 08:26] VITALS: RESP 18; BMI 32.0
--- NOTE | 2022-09-11 08:51 | EXP.PAIN.SOA ---
[facility] Pain Management SOAP Note Subjective:: Patient is a pleasant 46-year-old female who presents today for follow-up. We are currently treating the patient for low back pain with left lumbar radiculopathy symptoms, left hip pain. Today she rates her pain at a 10 out of 10. Patient's denies any new trauma or injury. Patient denies any change location or type of pain she experiences. Patient states her pain is all in her low back with radiating symptoms into her left hip and down her left leg. Patient states this has been going on since April. Patient states she was at work when she bent down and heard a loud popping sensation along her left hip. Patient states she has had a constant sharp, achy sensation that is worse with increased activity. Patient states she cannot tolerate prolonged sitting, standing, walking due to the pain. 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 Patient previously was denied a MRI due to not having physical therapy. Patient did go to physical therapy however she was unable to complete her sessions due to her worsening pain. Patient could not tolerate the exercises. She does use a wheelchair for ambulation due to her severe pain. Patient is currently taking ibuprofen 800 mg and that she has been given oral steroids in the past however she did have a small episode of hives. She does state that on Friday she went to the urgent treatment center and was giving a steroid injection which helped better. Patient did finally have her MRI approved however due to the prolonged positioning she could not tolerate this without sedation. Patient was prescribed a one-time dose of Valium and try to repeat her MRI. Patient still was unable to complete this imaging due to the worsening severe pain. Patient would like updated imaging however she is requesting more sedation if possible to complete. Patient states she has tried muscle relaxers in the past however she is unable to recall what 1 specifically. Patient is not on any scheduled medications. Her Hector is [id number]. Its been reviewed and appropriate. Review of Systems: General: No recent weight changes, no fever, no sleep disturbances Respiratory: No cough, no shortness of air, no recurring pulmonary infections Cardiovascular/peripheral vascular: No chest pain, no palpitations, no edema, no shortness of breath Gastrointestinal: No new onset incontinence, normal bowel movements reported Genitourinary: No new onset incontinence Musculoskeletal: Low back pain, left leg pain Psychiatric: [Normal mood/affect] Neurological: [Denies weakness in extremities], [denies balance issues] Objective:: Physical Exam: General: Alert and oriented x3, no acute distress, pleasant and cooperative Lungs: Respirations even and unlabored, symmetrical chest expansion Eyes: PERRL Musculoskeletal: Flexion and extension of lumbar [spine] somewhat guarded secondary to pain, [antalgic gait noted] Neurological: Speech clear, no gross sensory deficit Assessment:: Low back pain with lumbar radiculopathy symptoms, left hip pain Plan:: Patient is experiencing severe pain in her low back with limited range of motion of her lumbar spine. I have discussed with the patient that I will order an MRI without contrast of her lumbar spine with sedation. Patient has tried on 2 different attempts to complete the MRI however due to the prolonged positioning and severe pain she was not able to do this even with oral medications to relieve her pain prior to the procedure. Patient is experiencing constant debilitating pain in her low back that is an acute occurrence since April. I will order the patient methocarbamol 500 mg twice daily and provide a 14-day supply of this medication. I will order MRI without contrast of her lumbar spine with sedation at today's visit and contact the patient once we have approval. I have discussed with the patient
== END | disposition home or self-care (01) ==
PROVIDERS: PCP Internal Medicine Adolescent Medicine; Visit Provider Nurse Practitioner Family
DX: M54.16 Radiculopathy, lumbar region (principal); M54.50 Low back pain, unspecified; M25.552 Pain in left hip
CPT/HCPCS: 99212; G0463

== ENCOUNTER 2022-10-21 14:51 | Emergency (ER) | payer BC, SELFPAY ==
[2022-10-21 15:30] VITALS: BP 118/83; PULSE 109; RESP 20; TEMP 37; O2SAT 97; BMI 29.3
--- NOTE | 2022-10-21 16:19 | EXP.UTC ---
Discharge Plan Disposition Patient Disposition: Home, Self-Care Condition: Good Prescriptions Prescriptions: New benzonatate 100 mg capsule 100 mg PO TID PRN (Reason: cough) Qty: 30 0RF cefdinir 300 mg capsule 300 mg PO BID Qty: 20 0RF guaifenesin [Mucinex] 600 mg tablet extended release 12hr 1,200 mg PO BID PRN (Reason: cough/congestion) Qty: 20 0RF prednisone [prednisone] 20 mg tablet 20 mg PO BID 5 Days Qty: 10 0RF ondansetron 4 mg tablet,disintegrating 4 mg PO Q8H PRN (Reason: nausea and vomiting) Qty: 10 0RF No Action prednisone 10 mg tablet 10 mg PO DIRECTED Rx Instructions: Take 4 tablets daily for 3 days, then take 2 tablets daily for 3 days, then take 1 tablet daily for 3 days, then stop. diazepam [Valium] 10 mg tablet 10 mg PO ONCE Rx Instructions: take tablet 30 minutes prior to MRI amoxicillin-pot clavulanate 875-125 mg tablet 1 tab PO Q12H methocarbamol 750 mg tablet 750 mg PO TID Qty: 90 0RF benzonatate [benzonatate] 100 mg capsule 100 mg PO TIDP PRN (Reason: Cough) Qty: 30 0RF citalopram 20 MG tablet 20 mg PO DAILY estradiol 1 tablet 1 tab PO DAILY ondansetron 4 mg tablet,disintegrating 4 mg PO Q8H PRN (Reason: nausea and vomiting) 3 Days Qty: 9 0RF methocarbamol 500 mg tablet 500 mg PO TIDP PRN (Reason: muscle spasms) pantoprazole 40 mg tablet,delayed release (DR/EC) 40 mg PO DAILY diclofenac sodium 75 mg tablet,delayed release (DR/EC) 75 mg PO BID spironolactone 50 mg tablet 50 mg PO BID Referrals Follow up/Referrals: Mark Soto MD [Primary Care Provider] - See instructions Activity Restrictions/Add. Instructions Additional Instructions/Restrictions: Start antibiotic today. Be sure to complete entire prescription even if feeling better Monitor temp. Tylenol every 4 hours as needed and / or ibuprofen every 6 hours as needed ( As long as your primary care physician has told you that it ok to take both. For fever/aches/pains ER if no less than 101 despite Tylenol or Motrin Humidifier/vaporizer or hot steamy shower Inhaler every 4-6 hours as needed like we discussed. If unsure how to use it, ask pharmacist to demonstrate how. Should help open airways and improve cough, wheezing, and shortness of breath Mucinex during the day for your cough and cough suppressant only at night. Be sure to drink lots of water. *Tessalon Perles will not cause drowsiness but use at bedtime to help stop cough so that you may get some rest. *Start steroid today. Helps with inflammation therefore, cough and wheezing. Follow directions on the package. Reviewed side effects. Patient reports taking them before. Follow up IMMEDIATELY for new or worsening of symptoms OR no noticeable improvement over the next 48-72 hours. 911 immediately for any life threatening symptoms such as chest pain or difficulty breathing Clinical Impressions Clinical Impression: COPD exacerbation Instructions Patient Instructions: Chronic Obstructive Pulmonary Disease, DI for Chronic Obstructive Pulmonary Disease, COPD: When to Call for Help Discharge ED Provider: Mandi Neves [facility] General Stated complaint: Cough Mode of Arrival: Ambulatory Source of Information: Patient Limitations: No Limitations Time Seen by Provider: 10/21/22 16:19 Description of Symptoms (Recalled from Triage Doc. by RN): PATIENT C/O PRODUCTIVE COUGH AND VOMITING SINCE FRIDAY HEENT Symptoms (Recalled from RN notes): No Resp Symptoms (Recalled from RN notes): Yes Skin Symptoms (Recalled from RN notes): No MS Symptoms (Recalled from RN notes): No Functional Status (Recalled from RN notes): WNL History of Present Illness Provider Complaint: Patient states that she has been having sinus congestion and drainage for over a week States that she has started with cough that is product
[2022-10-21 16:30] VITALS: BP 118/83; PULSE 109; RESP 20; TEMP 37; O2SAT 97
== END 2022-10-21 16:35 | disposition home or self-care (01) ==
PROVIDERS: Emergency Provider Nurse Practitioner; PCP Internal Medicine Adolescent Medicine
DX: J44.1 Chronic obstructive pulmonary disease with (acute) exacerbation (principal); R06.02 Shortness of breath; F17.218 Nicotine dependence, cigarettes, with other nicotine-induced disorders; K21.9 Gastro-esophageal reflux disease without esophagitis
CPT/HCPCS: 99212; 99214; G0463

== ENCOUNTER 2022-11-01 14:53 | Emergency (ER) | payer BC, SELFPAY ==
[2022-11-01] VITALS (8 sets, daily range): BP systolic 106–149; BP diastolic 70–93; PULSE 81–102; RESP 16–25; TEMP 36.6; O2SAT 94–100; BMI 30.9
--- NOTE | 2022-11-01 14:53 | ECG_ITS ---
APPROVED REPORT Exam: Resting ECG HR:77 bpm ECG Measurements Heart Rate 77 AXES ND 131 P 29 QRSd 107 QRS -25 QT 307 T 18 QTc 339 Conclusion SINUS RHYTHM WITH SINUS ARRHYTHMIA BORDERLINE LEFT AXIS DEVIATION [QRS AXIS < -20] NONSPECIFIC T-WAVE ABNORMALITY BORDERLINE ECG UNCONFIRMED REPORT Electronically signed by : Mark Soto MD 11/02/2022 07:44:45
--- NOTE | 2022-11-01 14:59 | HMH.EDGENADL ---
Discharge Plan Disposition Patient Disposition: Home, Self-Care Prescriptions Prescriptions: New potassium chloride 20 mEq packet 20 meq PO QID 5 Days Qty: 30 0RF No Action prednisone 10 mg tablet 10 mg PO DIRECTED Rx Instructions: Take 4 tablets daily for 3 days, then take 2 tablets daily for 3 days, then take 1 tablet daily for 3 days, then stop. diazepam [Valium] 10 mg tablet 10 mg PO ONCE Rx Instructions: take tablet 30 minutes prior to MRI amoxicillin-pot clavulanate 875-125 mg tablet 1 tab PO Q12H methocarbamol 750 mg tablet 750 mg PO TID Qty: 90 0RF benzonatate [benzonatate] 100 mg capsule 100 mg PO TIDP PRN (Reason: Cough) Qty: 30 0RF citalopram 20 MG tablet 20 mg PO DAILY estradiol 1 tablet 1 tab PO DAILY ondansetron 4 mg tablet,disintegrating 4 mg PO Q8H PRN (Reason: nausea and vomiting) 3 Days Qty: 9 0RF methocarbamol 500 mg tablet 500 mg PO TIDP PRN (Reason: muscle spasms) pantoprazole 40 mg tablet,delayed release (DR/EC) 40 mg PO DAILY diclofenac sodium 75 mg tablet,delayed release (DR/EC) 75 mg PO BID spironolactone 50 mg tablet 50 mg PO BID benzonatate 100 mg capsule 100 mg PO TID PRN (Reason: cough) Qty: 30 0RF cefdinir 300 mg capsule 300 mg PO BID Qty: 20 0RF guaifenesin [Mucinex] 600 mg tablet extended release 12hr 1,200 mg PO BID PRN (Reason: cough/congestion) Qty: 20 0RF prednisone [prednisone] 20 mg tablet 20 mg PO BID 5 Days Qty: 10 0RF ondansetron 4 mg tablet,disintegrating 4 mg PO Q8H PRN (Reason: nausea and vomiting) Qty: 10 0RF Referrals Follow up/Referrals: Gale Mccurdy MD [Primary Care Provider] - See instructions Activity Restrictions/Add. Instructions Additional Instructions/Restrictions: Please follow-up with your primary care doctor on Friday to have your potassium rechecked and return to the emergency department with any other concerns. Clinical Impressions Clinical Impression: Hypokalemia, Chest pain Discharge ED Provider: Malathi Mcneal General Adult HPI General Chief complaint: Chest Pain Stated complaint: chest pain Time Seen by Provider: 11/01/22 14:59 History of Present Illness HPI narrative: Patient is a 47-year-old female presenting today with chest discomfort. She states that she has had a cough for 2 weeks went to an outside physician today where they prescribed Augmentin cefdinir and promethazine syrup. She took her first dose today of all 3 of the medications and 30 minutes later started to complain of some chest discomfort and pressure. Associated with severe anxiety. There was not an urticarial rash no wheezing noted before or after the medications no other organ system involvement. She states that she currently feels better. No fevers or chills during this time. She continues to smoke. She states she has a history of COPD. Related Data Home Medications Medication Instructions Recorded Confirmed citalopram 20 mg tablet 20 mg PO DAILY Anxiety 01/23/18 09/11/22 estradiol 1 mg tablet 1 tab PO DAILY hormone 01/23/18 09/11/22 diclofenac sodium 75 mg 75 mg PO BID Pain 08/06/22 09/11/22 tablet,delayed release methocarbamol 500 mg tablet 500 mg PO TIDP PRN muscle spasms 08/06/22 09/11/22 pantoprazole 40 mg tablet,delayed 40 mg PO DAILY GERD 08/06/22 09/11/22 release spironolactone 50 mg tablet 50 mg PO BID fluid 08/06/22 09/11/22 amoxicillin 875 mg-potassium 1 tab PO Q12H Infection 09/11/22 09/11/22 clavulanate 125 mg tablet diazepam 10 mg tablet (Valium) 10 mg PO ONCE NERVES 09/11/22 09/11/22 prednisone 10 mg tablet 10 mg PO DIRECTED Infection 09/11/22 09/11/22 Previous Rx's Medication Instructions Recorded ondansetron 4 mg disintegrating 4 mg PO Q8H PRN nausea and 02/11/22 tablet vomiting 3 days #9 tabs benzonatate 100 mg capsule 100 mg PO TIDP PRN Cough #30 caps 09/07/22 methocarbamol 750 mg tablet 750 mg PO TID #
--- NOTE | 2022-11-01 15:04 | XR_ITS ---
FINAL REPORT CLINICAL HISTORY: dyspnea COMPARISON: 09/07/2022 FINDINGS: SINGLE-VIEW CHEST The heart size is normal. The mediastinum is normal. The lungs are clear. There is no pneumothorax. IMPRESSION: No acute cardiopulmonary process. Reviewed, Interpreted and Dictated by Bhavin Dillon III, MD Transcribed by Debbie Miller Authenticated and [facility]
[2022-11-01 15:28] LABS: Basophils # 0.1 K/mm3 (0-0.2); Basophils % 0.5 % (0.1-2.0); Eosinophils # 0.2 K/mm3 (0.0-0.4); Eosinophils % 1.5 % (0.1-12.0); Hematocrit 41.3 % (37.0-47.0); Hemoglobin 14.3 g/dL (12.2-16.2); Lymphocytes # 3.6 K/mm3 (0.7-4.5); Lymphocytes % 25.8 % (10-50); Mean Corpuscular HGB Conc 34.5 g/dL (31.8-35.4); Mean Corpuscular Hemoglobin 33.1 pg (27.0-31.2); Mean Corpuscular Volume 95.8 fl (81-99); Mean Platelet Volume 7.5 fl (7.4-10.4); Monocytes # 0.6 K/mm3 (0.1-1.0); Monocytes % 4.7 % (1.7-9.3); Neutrophils # 9.3 K/mm3 (1.8-7.8); Neutrophils % 67.4 % (37.0-80.0); Platelet Count 287 K/mm3 (142-424); Red Blood Count 4.31 M/mm3 (4.20-5.40); Red Cell Distribution Width 13.6 % (11.5-17.5); White Blood Count 13.8 K/mm3 (4.8-10.8)
--- NOTE | 2022-11-01 15:29 | PC.NURSE ---
pt ambulatory to restroom without complications
[2022-11-01 15:31] LABS: Chloride 89 mmol/L (98-107)
[2022-11-01 15:32] LABS: Sodium 135 mmol/L (136-145)
[2022-11-01 15:34] LABS: Alanine Aminotransferase 31 U/L (12-78); Alkaline Phosphatase 77 U/L (38-126); Aspartate Amino Transferase 37 U/L (14-36); Bilirubin,Total 0.7 mg/dl (0.2-1.3); Blood Urea Nitrogen 3 mg/dl (7-17); Creatinine Clearance Estimated 171 mL/min (50-200); Estimated Glomerular Filt Rate 131 ml/min (>60); GFR (African American) 159 ML/MIN (>60)
[2022-11-01 15:35] LABS: Albumin Level 3.7 g/dl (3.5-5.0); Albumin/Globulin Ratio 1.3 (1.1-1.8); Anion Gap 13.3 mEq/L (5-15); Calcium 9.2 mg/dl (8.4-10.2); Carbon Dioxide 35 mmol/L (22.0-30.0); Globulin 2.8 g/dL (1.3-3.2); Glucose 103 mg/dl (74-100); Total Protein,Serum 6.5 g/dl (6.3-8.2)
[2022-11-01 15:53] LABS: Troponin I < 0.01 ng/ml (0.00-0.034)
[2022-11-01 15:54] LABS: Potassium 2.3 mmoL/L (3.5-5.1)
--- NOTE | 2022-11-01 16:21 | PC.NURSE ---
Dr. Mcneal at BS to update patient on POC
--- NOTE | 2022-11-01 17:26 | PC.NURSE ---
Phoned dietary for a meal tray. okay to eat.
[2022-11-01 19:03] LABS: Troponin I < 0.01 ng/ml (0.00-0.034)
== END 2022-11-01 20:06 | disposition home or self-care (01) ==
PROVIDERS: Emergency Provider Student in an Organized Health Care Education/Training Program; PCP Family Medicine
DX: R07.9 Chest pain, unspecified (principal); E87.6 Hypokalemia; J44.9 Chronic obstructive pulmonary disease, unspecified; F17.210 Nicotine dependence, cigarettes, uncomplicated
CPT/HCPCS: 36415; 71045; 80053; 84484; 85025; 93005; 96361; 96374; 99285

== ENCOUNTER 2023-02-21 21:30 | Observation (INO) | payer BC, SELFPAY ==
[2023-02-21 21:49] VITALS: BP 142/84; PULSE 92; RESP 16; TEMP 36.9; O2SAT 99; BMI 29.2
--- NOTE | 2023-02-21 23:15 | XR_ITS ---
PROCEDURE INFORMATION: Exam: XR Pelvis Exam date and time: 02/21/2023 11:25 PM Age: 47 years old Clinical indication: Pelvic pain; Additional info: Left hip pain TECHNIQUE: Imaging protocol: Radiologic exam of the pelvis. Views: 1 or 2 view. COMPARISON: CT ABDOMEN PELVIS W CON 09/05/2020 10:39 PM FINDINGS: Bones/joints: No acute fracture or dislocation is identified. Soft tissues: Unremarkable. Intraperitoneal space: There is a linear metallic density in the left pelvis, stable from a [address] CT. IMPRESSION: No acute osseous injury.
--- NOTE | 2023-02-21 23:15 | CT_ITS ---
PROCEDURE INFORMATION: Exam: CT Lumbar Spine Without Contrast Exam date and time: 02/21/2023 11:28 PM Age: 47 years old Clinical indication: Low back pain; Additional info: Back pain leg weakness TECHNIQUE: Imaging protocol: Computed tomography of the lumbar spine without contrast. Radiation optimization: All CT scans at this facility use at least one of these dose optimization techniques: automated exposure control; mA and/or kV adjustment per patient size (includes targeted exams where dose is matched to clinical indication); or iterative reconstruction. REPORTING DATA: Count of CT and Cardiac NM exams in prior 12 months: This patient has received 0 known CTs and 0 known cardiac nuclear medicine studies in the 12 months prior to the current study. COMPARISON: CR XR LUMBAR SPINE MIN 4V 07/29/2022 2:42 PM FINDINGS: Bones/joints: There is slight retrolisthesis of L5 on S1. There is a diffuse disc bulge at L5-S1 with vacuum phenomenon and ligamentum flavum infolding. This is associated with [id number]-cm-[id number] canal narrowing. There is moderate left and qlsm-hb-[id number] right neural foraminal narrowing. No acute fracture or dislocation is identified. Vasculature: Scattered atherosclerotic disease of the arterial vasculature. Soft tissues: Unremarkable. IMPRESSION: 1. Degenerative disease without acute injury identified. 2. Torx-tj-pripcjet canal narrowing at L5-S1.
--- NOTE | 2023-02-21 23:17 | HMH.EDGENADL ---
Discharge Plan Disposition Patient Disposition: Admitted Clinical Impressions Clinical Impression: Weakness of both legs, Acute hypokalemia Discharge ED Provider: Rolando Bianchi Adult HPI General Chief complaint: PAIN Stated complaint: bilateral leg weakness Time Seen by Provider: 02/21/23 23:01 Mode of Arrival: Wheelchair Source of Information: Patient Limitations: No Limitations Description of Symptoms (Recalled from ER Triage Doc. by RN): Has pain in buttocks from a year. Patient got a pain and steroid shot today and now having leg weakness. History of Present Illness HPI narrative: 47-year-old female history of chronic lumbar radiculopathy, COPD, depression presents with bilateral lower extremity weakness. She reports that she got a steroid and pain shot at the chiropractor earlier today. This evening she noted that she began feeling extremely weak in her legs. No symptoms in the upper extremities. She denies any recent trauma. Denies any recent infection. Denies history of IV drug use. No groin anesthesia, no new urinary or bowel incontinence. Related Data Home Medications Medication Instructions Recorded Confirmed citalopram 20 mg tablet 20 mg PO DAILY Anxiety 01/23/18 02/22/23 estradiol 1 mg tablet 1 tab PO DAILY hormone 01/23/18 02/22/23 diclofenac sodium 75 mg 75 mg PO BID Pain 08/06/22 02/22/23 tablet,delayed release pantoprazole 40 mg tablet,delayed 40 mg PO DAILY GERD 08/06/22 02/22/23 release diazepam 10 mg tablet (Valium) 10 mg PO ONCE NERVES 09/11/22 02/22/23 prednisone 10 mg tablet 10 mg PO DIRECTED Pain 09/11/22 02/22/23 methocarbamol 750 mg tablet 750 mg PO TID Pain 02/22/23 02/22/23 potassium chloride 20 mEq oral 20 meq PO QID Supplement 02/22/23 02/22/23 packet prednisone 20 mg tablet 20 mg PO BID Pain 02/22/23 02/22/23 Previous Rx's Medication Instructions Recorded ondansetron 4 mg disintegrating 4 mg PO Q8H PRN nausea and 02/11/22 tablet vomiting 3 days #9 tabs guaifenesin 600 mg tablet, 1,200 mg PO BID PRN 10/21/22 extended release 12 hr (Mucinex) cough/congestion #20 tabs Allergies Allergy/AdvReac Type Severity Reaction Status Date / Time No Known Allergies Allergy Verified 09/07/22 17:51 [facility] Disclaimer: The information contained in this section may have been updated after the patient was seen, as this information can be updated by other users. Medical History (Updated 02/22/23 @ 04:38 by Peter Taylor MD) Anxiety COPD (chronic obstructive pulmonary disease) Depression GERD (gastroesophageal reflux disease) History of left heart catheterization Hyperlipidemia UTI (urinary tract infection) Surgical History History of hysterectomy History of tubal ligation S/P tympanic tube insertion Family History Other No significant family history Social History (Updated 02/22/23 @ 02:23 by Amanuel Rousseau RN) Smoking Status: Current every day smoker tobacco type: cigarettes packs per day: 2 second hand exposure: Yes alcohol intake: never substance use type: unknown current occupational status: other Travel in the last 8 weeks: None household members: spouse housing: house caffeine: Yes ROS Obtained: Yes All systems reviewed & no additional complaints except as documented Physical Exam General General appearance: alert and in no apparent distress Head Head exam: atraumatic and normocephalic Eye Eye exam: Present normal appearance, PERRL and EOMI ENT ENT exam: Present normal oropharynx and normal external ear exam Neck Neck exam: Present normal inspection and full ROM Chest Chest inspection: Present normal inspection and symmetric chest wall rise; Absent tenderness Respiratory Respiratory exam: Present normal lung sounds bilaterally; Absent respiratory distress Cardiovascular Cardiovascular exam: Present regular ra
[2023-02-21 23:22] LABS: Microscopic, Urine URINE MICROSCOPIC (MICROSCOPIC)
--- NOTE | 2023-02-21 23:33 | PC.NURSE ---
patient back in room from [facility] at this time.
[2023-02-21 23:36] LABS: Appearance,Urine CLEAR (Clear); Bilirubin,Urine Negative (Negative); Blood, Urine Negative (Negative); Color,Urine YELLOW (Yellow); Glucose,Urine (UA) Negative (Negative); Ketones,Urine Negative (Negative); Leukocyte Esterase,Urine Negative (Negative); Nitrate,Urine Negative (Negative); Protein,Urine Negative (Negative); Specific Gravity, Urine <= 1.005 (1.005-1.030); Urobilinogen,Urine 0.2 EU/dl (0.2)
--- NOTE | 2023-02-21 23:40 | PC.NURSE ---
rounded on pt, no needs or concerns at this time.
[2023-02-22 00:02] LABS: Squamous Epithelial Cell,Urine Occasional #/hpf (0-5)
[2023-02-22 00:41] LABS: Chloride 98 mmol/L (98-107); Sodium 143 mmol/L (136-145)
[2023-02-22 00:43] LABS: Alanine Aminotransferase 36 U/L (12-78); Aspartate Amino Transferase 39 U/L (14-36); Basophils % 0.2 % (0.1-2.0); Blood Urea Nitrogen 3 mg/dl (7-17); Creatinine Clearance Estimated 161 mL/min (50-200); Eosinophils % 0.2 % (0.1-12.0); Estimated Glomerular Filt Rate 131 ml/min (>60); GFR (African American) 159 ML/MIN (>60); Hematocrit 45.2 % (37.0-47.0); Hemoglobin 15.4 g/dL (12.2-16.2); Lymphocytes # 1.8 K/mm3 (0.7-4.5); Lymphocytes % 17.5 % (10-50); Mean Corpuscular HGB Conc 34.1 g/dL (31.8-35.4); Mean Corpuscular Hemoglobin 31.4 pg (27.0-31.2); Mean Corpuscular Volume 92.1 fl (81-99); Mean Platelet Volume 7.3 fl (7.4-10.4); Monocytes # 0.4 K/mm3 (0.1-1.0); Monocytes % 3.5 % (1.7-9.3); Neutrophils # 8.2 K/mm3 (1.8-7.8); Neutrophils % 78.6 % (37.0-80.0); Platelet Count 294 K/mm3 (142-424); Red Blood Count 4.91 M/mm3 (4.20-5.40); Red Cell Distribution Width 13.7 % (11.5-17.5); White Blood Count 10.5 K/mm3 (4.8-10.8)
[2023-02-22 00:44] LABS: Albumin Level 3.8 g/dl (3.5-5.0); Albumin/Globulin Ratio 1.1 (1.1-1.8); Alkaline Phosphatase 88 U/L (38-126); Bilirubin,Total 0.4 mg/dl (0.2-1.3); Calcium 10.4 mg/dl (8.4-10.2); Carbon Dioxide 36 mmol/L (22.0-30.0); Creatine Kinase 49 U/L (30-135); Globulin 3.5 g/dL (1.3-3.2); Glucose 143 mg/dl (74-100); Total Protein,Serum 7.3 g/dl (6.3-8.2)
[2023-02-22 00:49] LABS: Anion Gap 11.3 mEq/L (5-15)
[2023-02-22 00:50] LABS: HCG Qualitative, Serum Negative (Negative); Potassium 2.3 mmoL/L (3.5-5.1)
--- NOTE | 2023-02-22 01:04 | PC.NURSE ---
received critical lab values at [id number]
--- NOTE | 2023-02-22 01:07 | ECG_ITS ---
APPROVED REPORT Exam: Resting ECG HR:78 bpm ECG Measurements Heart Rate 78 AXES AL 150 P 56 QRSd 96 QRS 35 QT 388 T 32 QTc 421 Conclusion SINUS RHYTHM NONSPECIFIC T-WAVE ABNORMALITY BORDERLINE ECG UNCONFIRMED REPORT Electronically signed by : Mark Soto MD 02/22/2023 06:46:10
[2023-02-22 01:15] LABS: Thyroid Stimulating Hormone 0.31 uIU/mL (0.465-4.68)
--- NOTE | 2023-02-22 01:15 | PC.NURSE ---
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
--- NOTE | 2023-02-22 01:17 | PC.NURSE ---
Admitting notified of Hospitalist admission, OBS, Room 207
--- NOTE | 2023-02-22 01:21 | PC.NURSE ---
rounded on pt and explained the process and what the plan of care is.
[2023-02-22 01:26] LABS: Magnesium 1.8 mg/dl (1.6-2.3); Phosphorous 2.6 mg/dl (2.5-4.5)
--- NOTE | 2023-02-22 01:26 | EXP.HP ---
History of Present Illness *Admission Date: 02/22/23 *Reason for visit:: hypokalemia *History of present illness: This is a 47-year-old female medical history COPD, anxiety and depression disorder, chronic back pain with L5-S1 narrowing. Patient was here back in October, when he was found to be hypokalemic. Patient was discharged home with P.O potassium medication. Patient stated that she was afraid to take it because also wants her potassium to be high. Today she came to the ER complaining of lower back pain and leg weakness. After injection of steroid for chronic radiculopathy. She denies fever, nausea, vomiting, no diarrhea. admitted for observation and management. [facility] Disclaimer: The information contained in this section may have been updated after the patient was seen, as this information can be updated by other users. Medical History (Updated 02/22/23 @ 06:17 by Erich Menchaca APRN) Anxiety COPD (chronic obstructive pulmonary disease) Depression GERD (gastroesophageal reflux disease) History of left heart catheterization Hyperlipidemia UTI (urinary tract infection) Surgical History History of hysterectomy History of tubal ligation S/P tympanic tube insertion Family History Other No significant family history Social History (Updated 02/22/23 @ 02:23 by Amanuel Rousseau RN) Smoking Status: Current every day smoker tobacco type: cigarettes packs per day: 2 second hand exposure: Yes alcohol intake: never substance use type: unknown current occupational status: other Travel in the last 8 weeks: None household members: spouse housing: house caffeine: Yes Review of Systems Review of Systems Review of systems:: pertinent systems reviewed and negative unless documented below Meds Home Medications and Allergies Home Medications Medication Instructions Recorded Confirmed Type estradiol 1 mg tablet 1 tab PO DAILY hormone 01/23/18 02/22/23 History replaclement therapy pantoprazole 40 mg tablet,delayed 40 mg PO DAILY Acid Reflux 08/06/22 02/22/23 History release citalopram 40 mg tablet 40 mg PO DAILY Depression 02/22/23 02/22/23 History ergocalciferol (vitamin D2) 1,250 50,000 unit PO WEEKLY Supplement 02/22/23 02/22/23 History mcg (50,000 unit) capsule (Vitamin D2) potassium chloride 20 mEq oral 20 meq PO TID Supplement 30 days 02/22/23 Rx packet #90 ea prednisone 20 mg tablet 20 mg PO DAILY inflammation 02/22/23 02/22/23 History New Prescriptions to Start Prescriptions: potassium chloride Will Zhang Allergies Allergy/AdvReac Type Severity Reaction Status Date / Time No Known Allergies Allergy Verified 09/07/22 17:51 Exam Data for Last 24 hours Vital signs and Labs for Last 24 Hours: Temp Pulse Resp BP Pulse Ox O2 Del Method 98.4 F 92 H 16 142/84 H 99 Room Air 02/21/23 21:49 02/21/23 21:49 02/21/23 21:49 02/21/23 21:49 02/21/23 21:49 02/21/23 21:49 Laboratory Results - last 24 hr 02/21/23 00:24: WBC Cancelled, Corrected WBC Cancelled, RBC Cancelled, Hgb Cancelled, Hct Cancelled, MCV Cancelled, MCH Cancelled, MCHC Cancelled, RDW Cancelled, Plt Count Cancelled, MPV Cancelled, Neut % (Auto) Cancelled, Lymph % (Auto) Cancelled, [place] % (Auto) Cancelled, Eos % (Auto) Cancelled, Baso % (Auto) Cancelled, Neut # (Auto) Cancelled, Lymph # (Auto) Cancelled, [place] # (Auto) Cancelled, Eos # (Auto) Cancelled, Baso # (Auto) Cancelled 02/21/23 22:10: Urine Color Yellow, Urine Appearance Clear, Urine pH 6.0, Ur Specific [place] <= 1.005, Urine Protein Negative, Urine Glucose (UA) Negative, Urine Ketones Negative, Urine Blood Negative, Urine Nitrate Negative, Urine Bilirubin Negative, Urine Urobilinogen 0.2, Ur Leukocyte Esterase Negative, Urine RBC None, Urine WBC None, Ur Squamous Epith Cells Occasional, Urine Bacteria None 02/22/23 00
--- NOTE | 2023-02-22 01:27 | PC.NURSE ---
reported critical K to
[2023-02-22 01:28] LABS: Potassium 2.1 mmoL/L (3.5-5.1)
[2023-02-22 01:47] VITALS: BP 136/88; PULSE 84; RESP 18; TEMP 36.8; O2SAT 97
--- NOTE | 2023-02-22 01:54 | PC.NURSE ---
Patient arrived to floor via stretcher at 01:50
[2023-02-22 02:00] VITALS: BP 136/85; PULSE 97; RESP 18; TEMP 36.8; O2SAT 98; BMI 31.2
[2023-02-22 04:00] VITALS: BP 121/81; PULSE 70; PULSE 72; RESP 18; TEMP 36.9; O2SAT 97; BMI 31.2
--- NOTE | 2023-02-22 06:58 | EXP.DC.SUM ---
General Admission date:: 02/22/23 Discharge date: 02/22/23 HPI HPI HPI: This is a 47-year-old female medical history COPD, anxiety and depression disorder, chronic back pain with L5-S1 narrowing. Patient was here back in October, when he was found to be hypokalemic. Patient was discharged home with P.O potassium medication. Patient stated that she was afraid to take it because also wants her potassium to be high. Today she came to the ER complaining of lower back pain and leg weakness. After injection of steroid for chronic radiculopathy. She denies fever, nausea, vomiting, no diarrhea. admitted for observation and management. Hospital Course Hospital Course Hospital Course: 47-year-old female medical history COPD, anxiety and depression disorder, chronic back pain with L5-S1 narrowing. Patient was here back in October, when he was found to be hypokalemic. Patient was discharged home with P.O potassium medication. Patient was not taking the medication as prescribed, concerning of turning the potassium being too high. At ER initial evaluation included a CT of the pelvic, confirming degenerative disease, with L5-S1 narrowing. The rest is unremarkable. Labs positive for hypokalemia, EKG is normal. Admitted for replacement of potassium given severity of depletion. Started on IV and oral. Improved to 3.1 by afternoon of discharge. Given patient's clinical stability, stable discharge home with repeat labs in 4 days and close follow-up with PCP this week. Problems addressed as follows: -Persistent hypokalemia with diffuse bilateral leg pain and muscle cramps: Potassium low at 2.1. Necessitating repletion. Treated with oral and IV. Gradually improved, 3.1 on afternoon of discharge. Plan to continue potassium orally 20 mEq 3 times a day for the next week. Repeat labs ordered for Friday. Recommend following up with PCP at end of week. Having some improvement in cramps and muscle pain. -Chronic back pain, degenerative disease, with L5-S1 narrowing: Patient was seen and examined as an outpatient today. procedure referred that received steroid shot. Continue to monitor, pain management with Tylenol and IV morphine. Robaxin as needed. -GERD: continue home protonix 40 mg daily. -COPD: stable on Room air. resume home inhaler regimen -Anxiety/Depression: Continue home citalopram. Patient's potassium correcting. Encouraged to take oral supplementation. We will have close follow-up with outpatient labs in 4 to 5 days. Follow-up with PCP within 1 week. Clinically stable for discharge home to continue repletion orally. Exam Data for Last 24 hours Vital signs and Labs for Last 24 Hours: Temp Pulse Resp BP Pulse Ox O2 Del Method 98.4 F 72 18 121/81 97 Room Air 02/22/23 04:00 02/22/23 04:00 02/22/23 04:00 02/22/23 04:00 02/22/23 04:00 02/22/23 06:52 Laboratory Results - last 24 hr 02/21/23 00:24: WBC Cancelled, Corrected WBC Cancelled, RBC Cancelled, Hgb Cancelled, Hct Cancelled, MCV Cancelled, MCH Cancelled, MCHC Cancelled, RDW Cancelled, Plt Count Cancelled, MPV Cancelled, Neut % (Auto) Cancelled, Lymph % (Auto) Cancelled, [place] % (Auto) Cancelled, Eos % (Auto) Cancelled, Baso % (Auto) Cancelled, Neut # (Auto) Cancelled, Lymph # (Auto) Cancelled, [place] # (Auto) Cancelled, Eos # (Auto) Cancelled, Baso # (Auto) Cancelled 02/21/23 22:10: Urine Color Yellow, Urine Appearance Clear, Urine pH 6.0, Ur Specific [place] <= 1.005, Urine Protein Negative, Urine Glucose (UA) Negative, Urine Ketones Negative, Urine Blood Negative, Urine Nitrate Negative, Urine Bilirubin Negative, Urine Urobilinogen 0.2, Ur Leukocyte Esterase Negative, Urine RBC None, Urine WBC None, Ur Squamous Epith Cells Occasional, Urine Bacteria None 02/22/23 00:24: WBC 10.5, RBC 4.91, Hgb 15.4, Hct 45.2, MCV 92.1, MCH 31.4 H, MCHC 34.1, RDW 13.7, Plt Count 294, MPV 7.3 L, Neut % (Auto) 78.6, Lymph % (Auto) 17.5, [place] % (Auto) 3.5, Eos % (Auto) 0.2, Baso % (Auto) 0.2, Zeenat
[2023-02-22 07:34] LABS: Eosinophils % 0.1 % (0.1-12.0); Mean Corpuscular HGB Conc 32.8 g/dL (31.8-35.4); Monocytes # 0.5 K/mm3 (0.1-1.0); Red Cell Distribution Width 13.7 % (11.5-17.5)
[2023-02-22 07:37] LABS: Alanine Aminotransferase 25 U/L (12-78); Albumin Level 3.3 g/dl (3.5-5.0); Albumin/Globulin Ratio 1.2 (1.1-1.8); Alkaline Phosphatase 70 U/L (38-126); Anion Gap 8.6 mEq/L (5-15); Aspartate Amino Transferase 26 U/L (14-36); Blood Urea Nitrogen 3 mg/dl (7-17); Calcium 8.6 mg/dl (8.4-10.2); Carbon Dioxide 37 mmol/L (22.0-30.0); Chloride 100 mmol/L (98-107); Creatinine Clearance Estimated 172 mL/min (50-200); Estimated Glomerular Filt Rate 131 ml/min (>60); GFR (African American) 159 ML/MIN (>60); Globulin 2.8 g/dL (1.3-3.2); Glucose 127 mg/dl (74-100); Magnesium 1.7 mg/dl (1.6-2.3); Phosphorous 3.3 mg/dl (2.5-4.5); Sodium 143 mmol/L (136-145); Total Protein,Serum 6.1 g/dl (6.3-8.2)
[2023-02-22 07:38] VITALS: BP 144/87; PULSE 80; RESP 18; TEMP 37
[2023-02-22 07:40] LABS: Basophils % 0.2 % (0.1-2.0); Bilirubin,Total 0.1 mg/dl (0.2-1.3); Hematocrit 40.2 % (37.0-47.0); Lymphocytes # 2.3 K/mm3 (0.7-4.5); Lymphocytes % 19.9 % (10-50); Mean Corpuscular Hemoglobin 30.9 pg (27.0-31.2); Mean Corpuscular Volume 94.4 fl (81-99); Mean Platelet Volume 8.1 fl (7.4-10.4); Monocytes % 4.1 % (1.7-9.3); Neutrophils # 8.8 K/mm3 (1.8-7.8); Neutrophils % 75.7 % (37.0-80.0); Platelet Count 274 K/mm3 (142-424); Potassium 2.6 mmoL/L (3.5-5.1); Red Blood Count 4.26 M/mm3 (4.20-5.40); White Blood Count 11.6 K/mm3 (4.8-10.8)
[2023-02-22 07:42] LABS: Hemoglobin 13.2 g/dL (12.2-16.2)
--- NOTE | 2023-02-22 09:19 | HMH.PHAINT1 ---
Pharmacy Intervention Comments: home medication list verified using list from outpatient pharmacy
[2023-02-22 11:49] VITALS: BP 124/80; PULSE 65; RESP 17; TEMP 36.4; O2SAT 97
[2023-02-22 13:26] LABS: Chloride 102 mmol/L (98-107); Potassium 3.1 mmoL/L (3.5-5.1); Sodium 143 mmol/L (136-145)
[2023-02-22 13:29] LABS: Blood Urea Nitrogen 3 mg/dl (7-17); Creatinine Clearance Estimated 143 mL/min (50-200); Estimated Glomerular Filt Rate 106 ml/min (>60); GFR (African American) 129 ML/MIN (>60)
[2023-02-22 13:30] LABS: Anion Gap 9.1 mEq/L (5-15); Carbon Dioxide 35 mmol/L (22.0-30.0); Glucose 153 mg/dl (74-100)
--- NOTE | 2023-02-22 13:55 | PC.NURSE ---
pt has been discharged from the unit. took all of her belongings with her and voiced understanding of all dc education and follow up appts.
--- NOTE | 2023-02-24 14:51 | CARE MANAGER ---
Left message for post-discharge phone interview, no answer.
--- NOTE | 2023-02-24 15:07 | CARE MANAGER ---
Spoke with patient for post-discharge phone interview, no issues noted.
== END 2023-02-22 13:50 | disposition home or self-care (01) ==
LOC: ER 22:48 → 2ND 02-22 01:45
PROVIDERS: Nurse Practitioner Family; Admitting Provider Internal Medicine Adolescent Medicine; Emergency Provider Emergency Medicine; PCP Family Medicine; Visit Provider Internal Medicine Adolescent Medicine
DX: E87.6 Hypokalemia (principal); M79.606 Pain in leg, unspecified; M54.16 Radiculopathy, lumbar region; K21.9 Gastro-esophageal reflux disease without esophagitis; J44.9 Chronic obstructive pulmonary disease, unspecified; F41.9 Anxiety disorder, unspecified; F17.210 Nicotine dependence, cigarettes, uncomplicated; Z79.899 Other long term (current) drug therapy
CPT/HCPCS: 36415; 72131; 72170; 80048; 80053; 81001; 82550; 83735; 84100; 84132; 84443; 84703; 85025; 93005; 99291; G0378; J3475

== ENCOUNTER → 2023-02-26 10:14 | Outpatient (CLI) | payer BC, SELFPAY ==
[2023-02-26 12:23] LABS: Chloride 102 mmol/L (98-107)
[2023-02-26 12:24] LABS: Potassium 4.1 mmoL/L (3.5-5.1); Sodium 139 mmol/L (136-145)
[2023-02-26 12:27] LABS: Anion Gap 11.1 mEq/L (5-15); Blood Urea Nitrogen 7 mg/dl (7-17); Calcium 9.5 mg/dl (8.4-10.2); Carbon Dioxide 30 mmol/L (22.0-30.0); Estimated Glomerular Filt Rate 131 ml/min (>60); GFR (African American) 159 ML/MIN (>60); Glucose 117 mg/dl (74-100); Magnesium 1.7 mg/dl (1.6-2.3)
== END ==
PROVIDERS: PCP Nurse Practitioner Family; Visit Provider Internal Medicine Adolescent Medicine
DX: E87.6 Hypokalemia (principal)
CPT/HCPCS: 36415; 80048; 83735

== ENCOUNTER → 2023-03-06 07:24 | Outpatient (CLI) | payer BC, SELFPAY ==
--- NOTE | 2023-03-06 07:27 | MR_ITS ---
FINAL REPORT CLINICAL HISTORY: SCIATICA ASSOCIATED WITH DISORDER OF LUMBAR SPINE. numbness in left foot. left leg pain FINDINGS: Multiplanar MR imaging of the lumbar spine was performed without contrast. On the sagittal T2-weighted images, abnormal decreased signal is seen at L4-5 and L5-S1. There is moderate loss of height at L5-S1 with endplate reactive signal changes. The vertebrae are of normal height. The vertebral alignment is normal. L1-2: There is no significant canal stenosis or neural foraminal narrowing. L2-3: There is no significant canal stenosis or neural foraminal narrowing. L3-4: There is no significant canal stenosis or neural foraminal narrowing. L4-5: Mild to moderate diffuse disc bulge is present. There is mild spinal and mild to moderate bilateral neural foraminal narrowing. L5-S1: There is a left paracentral disc extrusion extending superiorly from the disc space. There is moderate to high-grade compromise of the left lateral recess. There is moderate bilateral neural foraminal narrowing. IMPRESSION: Left paracentral disc protrusion/extrusion at L5-S1 extending superiorly with moderate to high-grade compromise of the left lateral recess. Reviewed, Interpreted and Dictated by Arturo Lagunas MD Transcribed by Debbie Miller Authenticated and [facility]
== END ==
LOC: RAD 07:24
PROVIDERS: PCP Nurse Practitioner; Visit Provider Nurse Practitioner
DX: M51.9 Unspecified thoracic, thoracolumbar and lumbosacral intervertebral disc disorder (principal); M54.50 Low back pain, unspecified; M54.32 Sciatica, left side
CPT/HCPCS: 72148; 76376

== ENCOUNTER → 2023-04-21 10:12 | Outpatient (POV) | payer BC, SELFPAY ==
--- NOTE | 2023-04-21 10:26 | EXP.PAIN.SOA ---
[facility] Pain Management SOAP Note Subjective:: Patient is a pleasant 47-year-old female who presents today for follow-up. We are currently treating the patient for degenerative disc disease of lumbar spine with lumbar radiculopathy symptoms, left leg pain, left hip pain. Today she rates her pain a 3 out of 10. She denies any new trauma or injury. She does state that her pain worsens as the day goes on and typically goes much higher to a 6 or above. Patient does state that her pain continues to all be at her low back with radiating symptoms into her left hip down her buttocks and all the way to her left foot. Patient does describe this as an aching, throbbing sensation with numbness and tingling down her extremity. Patient states that she cannot even walk due to the pain on some days. She states her movement is very limited and even clothing can aggravate her symptoms. Patient states this pain has been going on for some time and progressively worsened. She states the pain continues to affect her ability to perform activities of daily living such as cooking and cleaning. Patient has tried aqfc-wtu-lxihbgn Tylenol and ibuprofen along with heat and ice and topicals with no additional relief. Patient continues to do at home exercising and stretching for longer than 12 weeks however it is limited by her worsening pain symptoms. She is interested in any options we may be able to provide. Her Hector is appropriate and has been reviewed. Review of Systems: General: No recent weight changes, no fever, no sleep disturbances Respiratory: No cough, no shortness of air, no recurring pulmonary infections Cardiovascular/peripheral vascular: No chest pain, no palpitations, no edema, no shortness of breath Gastrointestinal: No new onset incontinence, normal bowel movements reported Genitourinary: No new onset incontinence Musculoskeletal: Low back pain, left hip pain, left leg pain Psychiatric: [Normal mood/affect] Neurological: [Denies weakness in extremities], [denies balance issues] Objective:: Physical Exam: General: Alert and oriented x3, no acute distress, pleasant and cooperative Lungs: Respirations even and unlabored, symmetrical chest expansion Eyes: PERRL Musculoskeletal: Flexion and extension of lumbar [spine] somewhat guarded secondary to pain, [antalgic gait noted] positive left leg leg raise with decreased sensation to light touch and decreased reflexes Neurological: Speech clear, no gross sensory deficit Assessment:: Degenerative disc disease of lumbar spine with lumbar radiculopathy symptoms, left leg pain, left hip pain, lumbar spinal stenosis, high-grade compromise of the left L5-S1 Plan:: Patient is experiencing worsening pain in her low back with radiating symptoms down her entire left leg. Patient had limited range of motion of her lumbar spine along with a positive left leg raise and decreased sensation to light touch and decreased reflexes during today's exam. I have discussed with the patient that she may benefit from a left transforaminal epidural steroid injection. Risk and benefits were discussed with patient and she would like to proceed forward with this plan of care. Patient is not on any blood thinners. Patient has tried and failed conservative therapy such as oral medication, heat and ice, topicals, at home exercising and stretching for longer than 12 weeks. Patient will be scheduled for a left transforaminal epidural steroid injection L4-L5 and L5-S1. Patient has been instructed to contact the clinic with any concerns before the next appointment. Dr. Bah has reviewed this note and agrees with this plan of care. This note was dictated using voice recognition software and make contain errors or omissions. [facility] Disclaimer: The information contained in this section may have been updated after the patient was seen, as this information can be updated by other users. Medical History (Updated 02/26/23 @ 00:01 by Siomara Tobin) An
[2023-04-21 10:48] VITALS: BP 146/94; PULSE 111; RESP 18; O2SAT 98; BMI 32.1
== END ==
PROVIDERS: PCP Family Medicine; Visit Provider Nurse Practitioner Family
DX: M51.16 Intervertebral disc disorders with radiculopathy, lumbar region (principal); M79.605 Pain in left leg; M25.552 Pain in left hip; M48.061 Spinal stenosis, lumbar region without neurogenic claudication
CPT/HCPCS: 99212; G0463

== ENCOUNTER 2023-04-27 13:10 | Emergency (ER) | payer BC, SELFPAY ==
[2023-04-27 13:30] VITALS: BP 107/82; PULSE 97; RESP 18; TEMP 36.8; O2SAT 98; BMI 33.2
--- NOTE | 2023-04-27 13:57 | EXP.UTC ---
Discharge Plan Disposition Patient Disposition: Home, Self-Care Condition: Good Prescriptions Prescriptions: No Action prednisone 20 mg tablet 20 mg PO DAILY potassium chloride 20 mEq packet 20 meq PO TID 30 Days Qty: 90 0RF citalopram 40 mg tablet 40 mg PO DAILY ergocalciferol (vitamin D2) [Vitamin D2] 1,250 mcg (50,000 unit) capsule 50,000 unit PO WEEKLY estradiol 1 tablet 1 tab PO DAILY pantoprazole 40 mg tablet,delayed release (DR/EC) 40 mg PO DAILY Referrals Follow up/Referrals: Itzel Horner APRN [Primary Care Provider] - See instructions Activity Restrictions/Add. Instructions Additional Instructions/Restrictions: Take your medications as they are prescribed Make sure to follow up with Pain Management as scheduled If the pain continues notify pain management Follow up with your Family Doctor if needed Straight to ER if any life threatening symptoms Clinical Impressions Clinical Impression: Lumbar back pain with radiculopathy affecting left lower extremity Instructions Patient Instructions: Low Back Pain, DI for Low Back Pain Discharge ED Provider: Mandi Neves [facility] General Stated complaint: hip and back pain, no accident Mode of Arrival: Ambulatory Source of Information: Patient Limitations: No Limitations Time Seen by Provider: 04/27/23 13:57 Description of Symptoms (Recalled from Triage Doc. by RN): PATIENT C/O CHRONIC LOWER BACK AND HIP PAIN. SHE STATES SHE HAS AN APPOINTMENT WITH PAIN MANAGEMENT SOON BUT IS WANTING SOMETHING TO HELP UNTIL THEN HEENT Symptoms (Recalled from RN notes): No Resp Symptoms (Recalled from RN notes): No Skin Symptoms (Recalled from RN notes): No MS Symptoms (Recalled from RN notes): Yes Functional Status (Recalled from RN notes): WNL History of Present Illness Provider Complaint: Patient states that she has chronic lower back and hip pain and has been seeing pain management States that she has pain meds at home and they havent been helping much states that when it flares up sometimes she has to get a steriod shot to help States that she came in today wanting to get a steriod shot to help until she sees Dr Bah on the [facility] Home Medications Medication Instructions Recorded Confirmed estradiol 1 mg tablet 1 tab PO DAILY hormone 01/23/18 04/21/23 replaclement therapy pantoprazole 40 mg tablet,delayed 40 mg PO DAILY Acid Reflux 08/06/22 04/21/23 release citalopram 40 mg tablet 40 mg PO DAILY Depression 02/22/23 04/21/23 ergocalciferol (vitamin D2) 1,250 50,000 unit PO WEEKLY Supplement 02/22/23 04/21/23 mcg (50,000 unit) capsule (Vitamin D2) prednisone 20 mg tablet 20 mg PO DAILY inflammation 02/22/23 04/21/23 Previous Rx's Medication Instructions Recorded potassium chloride 20 mEq oral 20 meq PO TID Supplement 30 days 02/22/23 packet #90 ea Allergies Allergy/AdvReac Type Severity Reaction Status Date / Time No Known Allergies Allergy Verified 09/07/22 17:51 Worker's Comp Is this a Worker's Comp case?: No [facility] Disclaimer: The information contained in this section may have been updated after the patient was seen, as this information can be updated by other users. Medical History (Updated 04/27/23 @ 14:12 by Mandi Neves APRN) Anxiety COPD (chronic obstructive pulmonary disease) COVID-19 Depression GERD (gastroesophageal reflux disease) History of left heart catheterization Hyperlipidemia Hypokalemia UTI (urinary tract infection) Surgical History History of hysterectomy History of tubal ligation S/P tympanic tube insertion Family History Other No significant family history Social History (Updated 02/22/23 @ 02:23 by Amanuel Rousseau RN) Smoking Status: Current every day smoker tobacco type: cigarettes packs per day: 2 second hand exposure: Yes alcohol
[2023-04-27 14:25] VITALS: BP 107/82; PULSE 97; RESP 18; TEMP 36.8; O2SAT 98
== END 2023-04-27 14:27 | disposition home or self-care (01) ==
PROVIDERS: Emergency Provider Nurse Practitioner; PCP Nurse Practitioner
DX: M54.16 Radiculopathy, lumbar region (principal); F17.210 Nicotine dependence, cigarettes, uncomplicated; J44.9 Chronic obstructive pulmonary disease, unspecified; K21.9 Gastro-esophageal reflux disease without esophagitis; E78.5 Hyperlipidemia, unspecified
CPT/HCPCS: 96372; 99212; 99214; G0463

== ENCOUNTER 2023-05-06 08:21 | Day surgery (SDC) | payer BC, SELFPAY ==
[2023-05-06 08:32] VITALS: BP 126/80; PULSE 115; RESP 16; TEMP 36.3; O2SAT 98; BMI 32.1
[2023-05-06 08:56] VITALS: BP 144/90; PULSE 100; RESP 20; O2SAT 97
[2023-05-06 09:01] VITALS: BP 144/90; PULSE 97; O2SAT 97
--- NOTE | 2023-05-06 09:03 | EXP.PAIN.PRO ---
Procedure Date: 05/06/23 Time: 08:50 Anesthesiologist:: Tirso Chandler CRNA Complications:: None Pre-procedure Diagnosis:: Degenerative disc lumbar spine multilevels. Lumbar radiculopathy. Disc bulge L4-5, L5-S1. Post-procedure Diagnosis:: Same. Indications for Procedure:: Patient is a pleasant 47-year-old female that comes our clinic today for a left L4-5 and L5-S1 transforaminal epidural steroid injection. Patient has low back left hip and leg pain she describes as constant, sharp, stabbing. She rates her pain 9/10. Procedure Details:: Details of the procedure were explained to the patient. The patient was taken the procedure room placed in the prone position. The area of the lumbar spine was cleansed using chlorhexidine as a cleansing solution. At this time using fluoroscopy guidance markers were placed on the left lateral border of the L4 and L5 vertebral body. The skin and subcutaneous tissue was anesthetized using 1% lidocaine and 25-gauge needle. At this time using a 22-gauge 3-1/2 inch spinal needle the left upper one third of the L4-5 foramen was accessed. The same was done at the left L5-S1 foramen. Needle positions were confirmed and a lateral view using fluoroscopy and contrast dye. At this time 1 cc of 1% lidocaine +20 mg of Depo-Medrol was injected at each level after negative aspiration. [place] were removed. Band-Aid applied. Patient tolerated the procedure without difficulty. There are no complications. Plan and Disposition:: Patient tolerated procedure without difficulty. No complications.
[2023-05-06 09:05] VITALS: BP 108/81; PULSE 103; RESP 16; O2SAT 98
== END 2023-05-06 09:05 | disposition home or self-care (01) ==
PROVIDERS: PCP Nurse Practitioner; Visit Provider Nurse Anesthetist, Certified Registered
DX: M51.16 Intervertebral disc disorders with radiculopathy, lumbar region (principal); M51.26 Other intervertebral disc displacement, lumbar region
CPT/HCPCS: 64483; 64484; J1030

== ENCOUNTER → 2023-05-22 10:31 | Outpatient (POV) | payer BC, SELFPAY ==
[2023-05-22 10:41] VITALS: BP 133/84; PULSE 111; RESP 18; O2SAT 97; BMI 30.5
--- NOTE | 2023-05-22 10:47 | EXP.PAIN.SOA ---
[facility] Pain Management SOAP Note Subjective:: Patient is a pleasant 47-year-old female who presents today for follow-up of left transforaminal epidural steroid injection L4-L5 and L5-S1 on 05/06/2023. We are currently treating the patient for degenerative disc disease of lumbar spine with lumbar radiculopathy symptoms, left leg pain, left hip pain. Today she rates her pain a 7 out of 10. Patient does state that she has had at least 40% improvement following this injection. Patient states that she has had significant improvement down on the left lower leg. She states that it is much better and not really bothering her at all. She states her pain today is more related to her low back and left hip. Patient does state the pain also comes and goes into her groin on that side. She does describe it as an aching, throbbing sensation with some tingling. Patient states the pain does interfere with her ability perform activities of daily living such as cooking and cleaning. Patient states that she cannot apply weight onto that hip due to the worsening pain symptoms. She is interested in any help we may be able to provide. Patient has tried and failed conservative therapy such as oral medication, heat and ice, topicals, at home stretching and exercise for longer than 12 weeks. Her Hector has been reviewed and is appropriate. Review of Systems: General: No recent weight changes, no fever, no sleep disturbances Respiratory: No cough, no shortness of air, no recurring pulmonary infections Cardiovascular/peripheral vascular: No chest pain, no palpitations, no edema, no shortness of breath Gastrointestinal: No new onset incontinence, normal bowel movements reported Genitourinary: No new onset incontinence Musculoskeletal: Low back pain, left hip pain Psychiatric: [Normal mood/affect] Neurological: [Denies weakness in extremities], [denies balance issues] Objective:: Physical Exam: General: Alert and oriented x3, no acute distress, pleasant and cooperative Lungs: Respirations even and unlabored, symmetrical chest expansion Eyes: PERRL Musculoskeletal: Flexion and extension of lumbar [spine] somewhat guarded secondary to pain, [antalgic gait noted] extreme point tenderness along left SI with positive left SI Mihai's, Ashok's, Gaenslen's, compression and distraction exam Neurological: Speech clear, no gross sensory deficit Assessment:: Degenerative disc disease of lumbar spine with lumbar radiculopathy symptoms, left leg pain, left hip pain, left-sided sacroiliitis Plan:: Patient is experiencing worsening pain in her low back and left hip with limited range of motion. Patient did have extreme point tenderness along her left SI with a positive left Mihai's, Ashok's, Gaenslen's, compression and distraction exam. I have discussed with the patient that she may benefit from a left SI injection. Risk and benefits were discussed with patient and she would like to proceed forward with this plan of care. Patient will be scheduled for a diagnostic left SI injection. Patient has been instructed to contact the clinic with any concerns before the next appointment. Dr. Bah has reviewed this note and agrees with this plan of care. This note was dictated using voice recognition software and make contain errors or omissions. [facility] Disclaimer: The information contained in this section may have been updated after the patient was seen, as this information can be updated by other users. Medical History Anxiety COPD (chronic obstructive pulmonary disease) COVID-19 Depression GERD (gastroesophageal reflux disease) History of left heart catheterization Hyperlipidemia Hypokalemia UTI (urinary tract infection) Surgical History History of hysterectomy History of tubal ligation S/P tympanic tube insertion Family History (Reviewed 09/07/22 @ 22:31 by Will Carter
== END ==
PROVIDERS: PCP Family Medicine; Visit Provider Nurse Practitioner Family
DX: M51.16 Intervertebral disc disorders with radiculopathy, lumbar region (principal); M79.605 Pain in left leg; M25.552 Pain in left hip; M46.1 Sacroiliitis, not elsewhere classified
CPT/HCPCS: 99212; G0463

== ENCOUNTER → 2023-05-23 13:41 | Outpatient (CLI) | payer BC, SELFPAY | PROVIDERS: PCP Nurse Practitioner Family; Visit Provider Nurse Practitioner Family | DX: R05.1 Acute cough (principal); U07.1 COVID-19 | CPT/HCPCS: 87635 ==

== ENCOUNTER 2023-05-30 07:42 | Day surgery (SDC) | payer BC, SELFPAY ==
[2023-05-30 08:09] VITALS: BP 118/84; PULSE 121; RESP 16; TEMP 36.4; O2SAT 98; BMI 30.9
[2023-05-30 08:12] VITALS: BP 153/95; PULSE 115; O2SAT 97
[2023-05-30 08:15] VITALS: BP 153/95; PULSE 115; O2SAT 98
[2023-05-30 08:20] VITALS: BP 109/80; PULSE 102; RESP 18; O2SAT 98
--- NOTE | 2023-05-30 08:24 | EXP.PAIN.PRO ---
Procedure Date: 05/30/23 Time: 08:05 Anesthesiologist:: Tirso Chandler CRNA Complications:: None Pre-procedure Diagnosis:: Degenerative disc lumbar spine multilevel disc bulge lumbar spine L4-5, L5-S1. Left sacroiliitis. Post-procedure Diagnosis:: Same. Indications for Procedure:: Patient is a very pleasant 47-year-old female comes our clinic today for a left sacroiliac joint injection. Upon examination patient has extreme point tenderness over the left sacroiliac joint. Patient reports having difficulty transitioning from sitting to standing. She rates her pain 7/10. Procedure Details:: Procedure: Left sacroiliac injection under fluoroscopy Informed consent was obtained and the risk and benefits of the procedure were explained to the patient.~ The patient was taken to the procedure room and noninvasive monitors were placed including noninvasive blood pressure cuff and pulse oximeter.~ The patient was placed prone on the procedure table.~ The~ left hip was cleansed using Betadine as a cleansing solution.~ C-arm fluorosocpy was used to view the left SI joint.~ The skin and subcutaneous tissues were anesthetized using Lidocaine 1.5% and a 25-gauge needle.~ After this, a 22-gauge spinal needle was inserted under fluoroscopic guidance into the inferior aspect of the left SI joint.~ Omnipaque dye was injected and a good spread was seen throughout the joint.~ After this, approximately 5 mL of bupivacaine 0.25% and Depo-Medrol 40 mg was incrementally injected into the sacroiliac joint.~ The patient tolerated the procedure well with no complications.~ The patient was observed in the Pain Clinic for a period of 30-45 minutes, then discharged home neurologically intact.~ Plan and Disposition:: Patient was discharged without incident.
== END 2023-05-30 08:20 | disposition home or self-care (01) ==
LOC: SC.PAINP 07:43
PROVIDERS: PCP Nurse Practitioner Family; Visit Provider Nurse Anesthetist, Certified Registered
DX: M46.1 Sacroiliitis, not elsewhere classified (principal); M51.36 Other intervertebral disc degeneration, lumbar region; M51.26 Other intervertebral disc displacement, lumbar region
CPT/HCPCS: 27096; G0260; J1040

== ENCOUNTER → 2023-06-17 08:00 | Outpatient (POV) | payer BC, SELFPAY ==
[2023-06-17 08:16] VITALS: BP 134/77; PULSE 95; RESP 19; O2SAT 97; BMI 32.2
--- NOTE | 2023-06-17 10:02 | A.OFFVIS_ITS ---
[facility] Pain Management SOAP Note Subjective:: This patient is a pleasant 47-year-old female comes our clinic today for follow- up visit regarding chronic low back pain she describes as constant, dull, aching. Also, patient complaining of left hip and leg radicular symptoms. Patient is status post left sacroiliac joint injection on 05/30/2023. She reports 2 days of relief in terms of her left posterior hip pain and left leg pain at the anterior thigh. Patient reports having 1 lumbar epidural steroid injection early in 2022. She reports this injection did help with her overall low back pain as well as bilateral hip and leg radicular symptoms. Her main complaint today is low lumbar back pain off the midline to the left including left hip and leg radicular symptoms to the foot. She rates her pain 10. Patient's Hector #[id number] has been reviewed and appropriate. Patient has recently restarted taking gabapentin 300 mg 1 p.o. twice daily. We discussed in detail regarding treatment options. She is requesting a repeat of the lumbar epidural steroid injection due to the fact this is what helped her the most in terms of her overall low back pain as well as bilateral hip and leg radicular symptoms. I think this would be appropriate. We discussed the injection in detail. She wishes to proceed. Patient has been involved in home exercise program since summer 2022. Patient reports having tried physical therapy and failed due to increased pain in the low back. She is having difficulty performing home ADLs such as cleaning, laundry, climbing steps. Objective:: Patient is awake alert [place] x 3. No acute distress. Flex tension lumbar spine very guarded secondary to pain. Deep tendon reflexes upper lower extremities normal. Motor strength upper and lower extremities normal. There is no gross sensory deficit. Gait is normal. Assessment:: Degenerative disc lumbar spine multilevels. Lumbar radiculopathy. Moderate disc bulge L4-5. Mild spinal and mild to moderate bilateral neural foraminal narrowing. Paracentral disc extrusion at the L5-S1 level. There is moderate to high-grade compromise of the left lateral recess. There is moderate bilateral neural foraminal narrowing at the L5-S1 level. Plan:: Discussed in detail with the patient regarding repeating the lumbar epidural steroid injection at the L4-5 level. If in fact this does not render moderate to significant improvement I recommend surgical evaluation with Dr. Juan Antonio Lim at [facility]. [facility] Disclaimer: The information contained in this section may have been updated after the patient was seen, as this information can be updated by other users. Medical History Anxiety COPD (chronic obstructive pulmonary disease) COVID-19 Depression GERD (gastroesophageal reflux disease) History of left heart catheterization Hyperlipidemia Hypokalemia UTI (urinary tract infection) Surgical History History of hysterectomy History of tubal ligation S/P tympanic tube insertion Family History Other No significant family history Social History Smoking Status: Current every day smoker tobacco type: cigarettes packs per day: 2 second hand exposure: Yes alcohol intake: never substance use type: unknown current occupational status: other Travel in the last 8 weeks: None household members: spouse housing: house caffeine: Yes
== END | disposition home or self-care (01) ==
PROVIDERS: PCP Nurse Practitioner Family; Visit Provider Nurse Anesthetist, Certified Registered
DX: M51.16 Intervertebral disc disorders with radiculopathy, lumbar region (principal); M51.26 Other intervertebral disc displacement, lumbar region
CPT/HCPCS: 99212; G0463

== ENCOUNTER 2023-06-27 11:18 | Day surgery (SDC) | payer BC, SELFPAY ==
[2023-06-27 11:34] VITALS: BP 140/89; PULSE 98; RESP 18; O2SAT 98; BMI 30.5
[2023-06-27 12:10] VITALS: BP 136/87; PULSE 119; RESP 18; O2SAT 98
[2023-06-27] MEDS: methylPREDNISolone ACETATE 80MG/ML VIAL 80 MG (12:11)
[2023-06-27 12:12] VITALS: BP 142/93; PULSE 130; RESP 20; O2SAT 98
[2023-06-27] MEDS: LIDOCAINE 1% 30ML PF VIAL 30 ML (12:12)
[2023-06-27 12:13] VITALS: BP 142/93; PULSE 130; RESP 20; O2SAT 98
--- NOTE | 2023-06-27 12:25 | EXP.PAIN.PRO ---
Procedure Date: 06/27/23 Time: 12:25 Anesthesiologist:: Chava Bah MD Complications:: None Pre-procedure Diagnosis:: Degenerative disc disease of lumbar spine with lumbar radiculopathy symptoms Post-procedure Diagnosis:: Same Indications for Procedure:: This patient was a 47-year-old white female who we are treating for low back pain with lumbar radicular symptoms. She has increasing pain in her low back radiating down her left leg. She has done well with these in the past. Her pain started to return. Will do a repeat lumbar pleural steroid injection under fluoroscopy today. Procedure Details:: Informed consent was obtained and the risk and benefits of the procedure was explained to the patient. The patient was taken to the procedure room. The patient was placed prone on the procedure table. The patient was prepped and draped in sterile fashion. C-arm fluoroscopy was used to view the lumbar spine. Skin and subcutaneous tissues were anesthetized using lidocaine. I placed an 18-gauge epidural needle and advanced into the L4-L5 interspace using fluoroscopic guidance and [id number] to air. After confirmation of needle placement in the epidural space with dye I injected 2 mL of lidocaine 1.5% with Depo-Medrol 80 mg. Patient tolerated the procedure well with no complications. Plan and Disposition:: Will follow-up with this patient in 2 weeks. Will reevaluate her symptoms at that time.
== END 2023-06-27 12:10 | disposition home or self-care (01) ==
PROVIDERS: PCP Nurse Practitioner Family; Visit Provider Anesthesiology
DX: M51.16 Intervertebral disc disorders with radiculopathy, lumbar region (principal)
CPT/HCPCS: 62323; J1040

== ENCOUNTER → 2023-07-03 13:49 | Outpatient (POV) | payer BC, SELFPAY ==
[2023-07-03 15:09] VITALS: BP 120/84; PULSE 113; RESP 18; O2SAT 96; BMI 31.1
--- NOTE | 2023-07-03 15:17 | A.OFFVIS_ITS ---
[facility] Pain Management SOAP Note Subjective:: Patient is a pleasant 47-year-old female who presents today for follow-up of her lumbar epidural steroid injection L4-L5 on 06/27/2023. We are currently treating the patient for degenerative disc disease of lumbar spine with lumbar radiculopathy symptoms, sacroiliitis, left hip pain, lumbar facet arthropathy. Today she rates her pain a 7 out of 10. Patient states that she was doing really well following this injection and had approximately 50% improvement however she started experiencing worsening pain on Friday all around her low back. Patient states this is an aching, throbbing sensation that is worse with certain movements such as bending, twisting or lifting. Patient states the pain is constant and interferes with her ability perform activities of daily living such as cooking and cleaning. Patient is currently managed with gabapentin 300 mg twice a day from our office. Patient denies any side effects from this medication. Her Hector has been reviewed and is appropriate. Review of Systems: General: No recent weight changes, no fever, no sleep disturbances Respiratory: No cough, no shortness of air, no recurring pulmonary infections Cardiovascular/peripheral vascular: No chest pain, no palpitations, no edema, no shortness of breath Gastrointestinal: No new onset incontinence, normal bowel movements reported Genitourinary: No new onset incontinence Musculoskeletal: Low back pain Psychiatric: [Normal mood/affect] Neurological: [Denies weakness in extremities], [denies balance issues] Objective:: Physical Exam: General: Alert and oriented x3, no acute distress, pleasant and cooperative Lungs: Respirations even and unlabored, symmetrical chest expansion Eyes: PERRL Musculoskeletal: Flexion and extension of lumbar [spine] somewhat guarded secondary to pain, [antalgic gait noted] positive Kemps test Neurological: Speech clear, no gross sensory deficit Assessment:: Degenerative disc disease of lumbar spine with lumbar radiculopathy symptoms, sacroiliitis, left hip pain, lumbar facet arthropathy Plan:: Patient had limited range of motion of her lumbar spine along with a positive Kemps test during today's visit patient did have worsening symptoms more prominent on the left side compared to the right. I have discussed with the patient that she may benefit from a lumbar medial branch block bilaterally. R isk and benefits were discussed with the patient and she would like to proceed forward with this plan of care. Patient is not on any blood thinners. Patient will be scheduled for a lumbar medial branch block bilaterally L4-L5 and L5-S1 Under fluoroscopy guidance. Patient has been instructed to contact the clinic with any concerns before the next appointment. Dr. Bah has reviewed this note and agrees with this plan of care. This note was dictated using voice recognition software and make contain errors or omissions. [facility] Disclaimer: The information contained in this section may have been updated after the patient was seen, as this information can be updated by other users. Medical History Anxiety COPD (chronic obstructive pulmonary disease) COVID-19 Depression GERD (gastroesophageal reflux disease) History of left heart catheterization Hyperlipidemia Hypokalemia UTI (urinary tract infection) Surgical History History of hysterectomy History of tubal ligation S/P tympanic tube insertion Family History Other No significant family history Social History Smoking Status: Current every day smoker tobacco type: cigarettes packs per day: 2 second hand exposure: Yes alcohol intake: never substance use type: unknown current occupational status: unemployed Travel in the last 8 weeks: None household members: spouse housing: house caffeine: Yes
== END ==
LOC: SC.PAIN 13:49
PROVIDERS: PCP Nurse Practitioner Family; Visit Provider Nurse Practitioner Family
DX: M51.16 Intervertebral disc disorders with radiculopathy, lumbar region (principal); M46.1 Sacroiliitis, not elsewhere classified; M25.552 Pain in left hip; M47.26 Other spondylosis with radiculopathy, lumbar region
CPT/HCPCS: 99212; G0463

== ENCOUNTER 2023-07-18 23:07 | Outpatient (CLI) | payer BC, SELFPAY ==
[2023-07-18 17:27] LABS: Basophils # 0.1 K/mm3 (0-0.2); Basophils % 0.8 % (0.1-2.0); Eosinophils # 0.1 K/mm3 (0.0-0.4); Eosinophils % 0.4 % (0.1-12.0); Hematocrit 43.9 % (37.0-47.0); Hemoglobin 15.7 g/dL (12.2-16.2); Lymphocytes # 3.7 K/mm3 (0.7-4.5); Mean Corpuscular HGB Conc 35.8 g/dL (31.8-35.4); Mean Corpuscular Hemoglobin 33.4 pg (27.0-31.2); Mean Corpuscular Volume 93.2 fl (81-99); Mean Platelet Volume 8.2 fl (7.4-10.4); Monocytes # 0.6 K/mm3 (0.1-1.0); Neutrophils # 10.3 K/mm3 (1.8-7.8); Neutrophils % 69.8 % (37.0-80.0); Platelet Count 294 K/mm3 (142-424); White Blood Count 14.8 K/mm3 (4.8-10.8)
[2023-07-18 17:50] LABS: Hemoglobin A1C 5.2 % (4.0-6.0)
[2023-07-18 18:26] LABS: Alanine Aminotransferase 23 U/L (12-78); Albumin Level 3.9 g/dl (3.5-5.0); Albumin/Globulin Ratio 1.3 (1.1-1.8); Alkaline Phosphatase 114 U/L (38-126); Aspartate Amino Transferase 24 U/L (14-36); Bilirubin,Total 0.4 mg/dl (0.2-1.3); Blood Urea Nitrogen 5 mg/dl (7-17); Calcium 9.6 mg/dl (8.4-10.2); Carbon Dioxide 34 mmol/L (22.0-30.0); Chloride 93 mmol/L (98-107); Estimated Glomerular Filt Rate 131 ml/min (>60); GFR (African American) 159 ML/MIN (>60); Globulin 2.9 g/dL (1.3-3.2); Glucose 96 mg/dl (74-100); Sodium 135 mmol/L (136-145); Total Protein,Serum 6.8 g/dl (6.3-8.2)
[2023-07-18 18:40] LABS: Anion Gap 11.1 mEq/L (5-15); Potassium 3.1 mmoL/L (3.5-5.1)
[2023-07-18 18:57] LABS: Thyroid Stimulating Hormone 1.04 uIU/mL (0.465-4.68)
[2023-07-18 19:07] LABS: Ferritin 125 ng/ml (6.24-137)
== END 2023-07-18 23:59 ==
LOC: LAB.DROPOF 23:08
PROVIDERS: PCP Nurse Practitioner Family; Visit Provider Nurse Practitioner Family
DX: M79.89 Other specified soft tissue disorders (principal); R20.8 Other disturbances of skin sensation
CPT/HCPCS: 80053; 82728; 83036; 84443; 85025

== ENCOUNTER 2023-07-22 09:17 | Day surgery (SDC) | payer BC, SELFPAY ==
[2023-07-22 09:30] VITALS: BP 120/80; PULSE 117; RESP 16; TEMP 36.2; O2SAT 96; BMI 32.0
[2023-07-22] MEDS: BUPIVACAINE 0.25% 10ML INJ 25 MG IJ (09:38)
[2023-07-22] MEDS: LIDOCAINE 1% 5ML PF VIAL 5 ML (09:39)
[2023-07-22] MEDS: methylPREDNISolone ACETATE 80MG/ML VIAL 80 MG (09:39)
[2023-07-22 09:40] VITALS: BP 137/87; PULSE 117; RESP 18; O2SAT 99
[2023-07-22 09:41] VITALS: BP 137/87; PULSE 107; RESP 18; O2SAT 97
[2023-07-22 09:44] VITALS: BP 131/86; PULSE 104; RESP 18; O2SAT 96
--- NOTE | 2023-07-22 09:45 | EXP.PAIN.PRO ---
Procedure Date: 07/22/23 Time: 09:40 Anesthesiologist:: Tirso Chandler CRNA Complications:: None Pre-procedure Diagnosis:: Degenerative disc lumbar spine multilevels. Lumbar radiculopathy. Lumbar spondylosis. Multilevel lumbar facet arthropathy. Post-procedure Diagnosis:: Same. Indications for Procedure:: Patient is a very pleasant 47-year-old female comes our clinic today for lumbar medial branch block/facet injection bilateral L4-5, L5-S1. Patient describes low back pain is constant, dull, aching. Patient is difficulty with flexion, extension, left and right rotation. She rates her pain 7/10. Procedure Details:: Informed consent was obtained and the risk and benefits of the procedure was explained to the patient. Patient was taken to the procedure room where noninvasive monitors were placed, including noninvasive blood pressure cuff as well as pulse oximeter. The area over the lumbar spine was cleansed using chlorhexidine as a cleansing solution. I anesthetized the skin and subcutaneous tissues with 1% Lidocaine. I placed 22-gauge spinal needles into the facet joint/ medial branches of [L3-L4, L4-L5, and L5-S1] bilaterally. Needle placement was confirmed with fluoroscopy. After confirmation of needle placement, each site was injected with 1 mL of 1% lidocaine and 0.25 % Marcaine and 10 mg of Depo-Medrol. A total of 80 mg of depo medrol was used for bilateral medial branch blocks of [L3-L4, L4-L5, and L5-S1] bilaterally. Patient tolerated the procedure without difficulty. There were no complications. Plan and Disposition:: Patient was discharged without incident.
== END 2023-07-22 09:44 | disposition home or self-care (01) ==
PROVIDERS: PCP Nurse Practitioner Family; Visit Provider Nurse Anesthetist, Certified Registered
DX: M47.896 Other spondylosis, lumbar region (principal); M51.16 Intervertebral disc disorders with radiculopathy, lumbar region
CPT/HCPCS: 64493; 64494; J1040

== ENCOUNTER 2023-07-30 14:25 | Outpatient (CLI) | payer BC, SELFPAY ==
[2023-07-30 14:41] LABS: Basophils # 0.1 K/mm3 (0-0.2); Basophils % 0.6 % (0.1-2.0); Eosinophils # 0.1 K/mm3 (0.0-0.4); Eosinophils % 0.6 % (0.1-12.0); Hematocrit 44.7 % (37.0-47.0); Hemoglobin 15.1 g/dL (12.2-16.2); Lymphocytes # 3.7 K/mm3 (0.7-4.5); Lymphocytes % 23.3 % (10-50); Mean Corpuscular HGB Conc 33.8 g/dL (31.8-35.4); Mean Corpuscular Hemoglobin 31.8 pg (27.0-31.2); Mean Corpuscular Volume 94.1 fl (81-99); Mean Platelet Volume 7.4 fl (7.4-10.4); Monocytes # 0.6 K/mm3 (0.1-1.0); Monocytes % 3.7 % (1.7-9.3); Neutrophils # 11.2 K/mm3 (1.8-7.8); Neutrophils % 71.7 % (37.0-80.0); Platelet Count 289 K/mm3 (142-424); Red Blood Count 4.75 M/mm3 (4.20-5.40); Red Cell Distribution Width 14.1 % (11.5-17.5); White Blood Count 15.7 K/mm3 (4.8-10.8)
[2023-07-30 14:44] LABS: MANUAL DIFFERENTIAL MANUAL DIFFERENTIAL (MANUAL DIFF)
[2023-07-30 15:30] LABS: Amylase 56 U/L (30-110); Lipase 57 U/L (23-300); Potassium 3.2 mmoL/L (3.5-5.1)
[2023-07-30 15:37] LABS: Lymphocytes % 29 % (10-50); Monocytes % 6 % (2-9); Neutrophils % 64 % (42-76); Total Cells Counted 100
[2023-07-30 15:38] LABS: Platelet Estimate Normal; RBC Morphology Normal
[2023-07-30 16:20] LABS: Vitamin B12 371 pg/mL (239-931)
== END 2023-07-30 23:59 ==
LOC: LAB.DROPOF 14:25
PROVIDERS: PCP Nurse Practitioner Family; Visit Provider Nurse Practitioner Family
DX: R10.10 Upper abdominal pain, unspecified (principal); E87.6 Hypokalemia; D72.829 Elevated white blood cell count, unspecified; R20.8 Other disturbances of skin sensation
CPT/HCPCS: 82150; 82607; 83690; 84132; 85007; 85025

== ENCOUNTER → 2023-08-08 08:23 | Outpatient (POV) | payer BC, SELFPAY ==
--- NOTE | 2023-08-08 08:34 | A.OFFVIS_ITS ---
[facility] Pain Management SOAP Note Subjective:: Patient is a pleasant 47-year-old female who presents today for follow-up of her lumbar medial branch block L4-L5 and L5-S1 bilaterally on 07/22/2023. We are currently treating the patient for degenerative disc disease of lumbar spine with lumbar radiculopathy symptoms, sacroiliitis, left hip pain, lumbar facet arthropathy. Today she rates her pain a 7 out of 10. She states that she has had at least 80 to 90% improvement of her overall low back symptoms. She states that it is still currently helping. She states she will occasionally still notice a small pinch in and around her left buttocks however it is much more manageable. She states she has been able to increase her activity with decreased pain and feels overall more functional. Patient does state that she has been noticing more pain that is radiating down into her left leg. She denies any new trauma or injury. Patient did previously have a lumbar epidural back in June that did provide upwards of 50% improvement or more. Patient does state that she is currently fixing to go to her primary care doctor to review of her lab work where she does have an elevated white count and low potassium. Patient states that she has also been experiencing more burning sensations into her and her left foot and that they are trying to figure out if it has something to do with a narrowing in her vessels. She states they had mentioned possibly doing a ultrasound. Patient is currently managed with gabapentin 300 mg twice a day from our office. Patient denies any side effects from this medication. She states that she does not need any refills on this medication and that she only takes it as needed when it is really bad. Her Hector has been reviewed and is appropriate. Review of Systems: General: No recent weight changes, no fever, no sleep disturbances Respiratory: No cough, no shortness of air, no recurring pulmonary infections Cardiovascular/peripheral vascular: No chest pain, no palpitations, no edema, no shortness of breath Gastrointestinal: No new onset incontinence, normal bowel movements reported Genitourinary: No new onset incontinence Musculoskeletal: Low back pain, left leg pain Psychiatric: [Normal mood/affect] Neurological: [Denies weakness in extremities], [denies balance issues] Objective:: Physical Exam: General: Alert and oriented x3, no acute distress, pleasant and cooperative Lungs: Respirations even and unlabored, symmetrical chest expansion Eyes: PERRL Musculoskeletal: Flexion and extension of lumbar [spine] somewhat guarded secondary to pain, [antalgic gait noted] Neurological: Speech clear, no gross sensory deficit Assessment:: Degenerative disc disease of lumbar spine with lumbar radiculopathy symptoms, sacroiliitis, left hip pain, lumbar facet arthropathy Plan:: Patient has had significant improvement of her overall low back pain of upwards of 80 to 90% relief. I have discussed with the patient in future if she continues to have the left leg pains it may be beneficial to try a left transforaminal epidural injection. We will follow-up with this at future visits. Patient will be ordered a compounded cream. Patient will return to clinic in 1 month for reevaluation of symptoms and plan of care. Patient has been instructed to contact the clinic with any concerns before the next appointment. Dr. Bah has reviewed this note and agrees with this plan of care. This note was dictated using voice recognition software and make contain errors or omissions. [facility] Disclaimer: The information contained in this section may have been updated after the patient was seen, as this information can be updated by other users. Medical History (Updated 07/30/23 @ 09:36 by Mabel Escalera APRN) Anxiety COPD (chronic obstructive pulmonary disease) COVID-19 Depression GERD (gastroesophageal reflux disease) History of left heart catheterization Hyperlipidemia Hypokalemia UTI (urinary tract infection) Surgical History History of hysterectomy History of tubal ligation S/P tympanic tube insertion Family History Other No significant family history Social History Smoking Status: Current every day smoker tobacco type: cigarettes packs per day: 2 second hand exposure: Yes alcohol intake: never substance use type: unknown current occupational status: unemployed Travel in the last 8 weeks: None household members: spouse housing: house caffeine: Yes
[2023-08-08 09:06] VITALS: BP 113/80; PULSE 116; RESP 18; O2SAT 97; BMI 32.0
[2023-08-08 16:42] LABS: Potassium 4.1 mmoL/L (3.5-5.1)
[2023-08-10 14:45] LABS: Peripheral Smear Review Scanned Result
== END ==
LOC: SC.PAIN 08:24
PROVIDERS: PCP Nurse Practitioner Family; Visit Provider Nurse Practitioner Family
DX: M51.16 Intervertebral disc disorders with radiculopathy, lumbar region (principal); M46.1 Sacroiliitis, not elsewhere classified; M25.552 Pain in left hip; M47.26 Other spondylosis with radiculopathy, lumbar region
CPT/HCPCS: 84132; 99212; G0463

== ENCOUNTER 2023-08-12 07:33 | Outpatient (CLI) | payer BC, SELFPAY ==
--- NOTE | 2023-08-12 07:33 | US_ITS ---
FINAL REPORT TECHNIQUE: Sonographic images of the right upper quadrant were obtained. CLINICAL HISTORY: Nausea, upper abdominal pain. COMPARISON: None FINDINGS: PANCREAS: Unremarkable. LIVER: Homogeneous. There is fatty infiltration of the liver.. No intrahepatic biliary ductal dilatation. GALLBLADDER: No gallstones. No gallbladder wall thickening or pericholecystic fluid. COMMON DUCT: 4 mm. Normal for age. RIGHT KIDNEY: The right kidney measures 12.2 cm. There is no hydronephrosis, mass, or stone. FREE FLUID: None. IMPRESSION: Fatty infiltration of the liver. Reviewed, Interpreted and Dictated by Meghan Wells MD Transcribed by Praveena Peralta Authenticated and [facility] [place]
== END 2023-08-12 23:59 ==
LOC: RAD 07:33
PROVIDERS: PCP Nurse Practitioner Family; Visit Provider Nurse Practitioner Family
DX: R11.0 Nausea (principal); R10.10 Upper abdominal pain, unspecified
CPT/HCPCS: 76705

== ENCOUNTER 2023-08-13 09:44 | Outpatient (CLI) | payer BC, SELFPAY ==
--- NOTE | 2023-08-13 09:49 | US_ITS ---
FINAL REPORT CLINICAL HISTORY: Pain, weakness, burning sensation, smoker, bilateral claudication, bilateral rest pain COMPARISON: None FINDINGS: ANKLE-BRACHIAL PRESSURE INDICES Pressure indices are as follows: RIGHT LOWER EXTREMITY: Ankle-brachial pressure index: 1.0 Comments: Normal LEFT LOWER EXTREMITY: Ankle-brachial pressure index: 1.0 Comments: Normal IMPRESSION: No evidence of significant obstructive peripheral vascular disease of the lower extremities Reviewed, Interpreted and Dictated by Meghan Wells MD Transcribed by Josefina Monreal Authenticated and [facility]
== END 2023-08-13 23:59 ==
LOC: RT 09:47
PROVIDERS: PCP Nurse Practitioner Family; Visit Provider Nurse Practitioner Family
DX: M79.606 Pain in leg, unspecified (principal); R20.8 Other disturbances of skin sensation; R29.898 Other symptoms and signs involving the musculoskeletal system
CPT/HCPCS: 93923

== ENCOUNTER 2023-08-27 15:56 | Outpatient (CLI) | payer BC, SELFPAY ==
[2023-08-27 15:59] LABS: Basophils # 0.1 K/mm3 (0-0.2); Basophils % 0.9 % (0.1-2.0); Eosinophils # 0.1 K/mm3 (0.0-0.4); Eosinophils % 0.9 % (0.1-12.0); Hematocrit 44.8 % (37.0-47.0); Hemoglobin 15.1 g/dL (12.2-16.2); Lymphocytes # 2.9 K/mm3 (0.7-4.5); Lymphocytes % 24.7 % (10-50); Mean Corpuscular HGB Conc 33.6 g/dL (31.8-35.4); Mean Corpuscular Hemoglobin 33.7 pg (27.0-31.2); Mean Corpuscular Volume 100.3 fl (81-99); Mean Platelet Volume 8.9 fl (7.4-10.4); Monocytes # 0.6 K/mm3 (0.1-1.0); Monocytes % 4.7 % (1.7-9.3); Neutrophils # 8.3 K/mm3 (1.8-7.8); Platelet Count 293 K/mm3 (142-424); Red Blood Count 4.47 M/mm3 (4.20-5.40); Red Cell Distribution Width 13.8 % (11.5-17.5)
[2023-08-27 17:43] LABS: Alanine Aminotransferase 29 U/L (12-78); Albumin Level 4.1 g/dl (3.5-5.0); Albumin/Globulin Ratio 1.5 (1.1-1.8); Alkaline Phosphatase 117 U/L (38-126); Anion Gap 16.2 mEq/L (5-15); Aspartate Amino Transferase 36 U/L (14-36); Bilirubin,Total 0.4 mg/dl (0.2-1.3); Blood Urea Nitrogen 6 mg/dl (7-17); Calcium 9.9 mg/dl (8.4-10.2); Carbon Dioxide 26 mmol/L (22.0-30.0); Chloride 101 mmol/L (98-107); Estimated Glomerular Filt Rate 131 ml/min (>60); GFR (African American) 159 ML/MIN (>60); Globulin 2.7 g/dL (1.3-3.2); Glucose 74 mg/dl (74-100); Potassium 4.2 mmoL/L (3.5-5.1); Sodium 139 mmol/L (136-145); Total Protein,Serum 6.8 g/dl (6.3-8.2)
[2023-08-27 18:15] LABS: Thyroid Stimulating Hormone 1.15 uIU/mL (0.465-4.68)
== END 2023-08-27 23:59 ==
LOC: LAB.DROPOF 15:56
PROVIDERS: PCP Nurse Practitioner Family; Visit Provider Nurse Practitioner Family
DX: R42 Dizziness and giddiness (principal); D72.829 Elevated white blood cell count, unspecified
CPT/HCPCS: 80053; 84443; 85025

== ENCOUNTER 2023-08-29 09:03 | Outpatient (POV) | payer BC, SELFPAY ==
[2023-08-29 09:11] VITALS: BP 121/81; PULSE 111; RESP 18; O2SAT 99; BMI 32.9
--- NOTE | 2023-08-29 09:31 | A.OFFVIS_ITS ---
[facility] Pain Management SOAP Note Subjective:: Patient is a pleasant 47-year-old female who presents today for follow-up. Today she rates her pain an 8 out of 10. Patient denies any acute trauma or injury. She does state that she is experiencing worsening pain here in her low back that does radiate from her left buttocks down her entire left leg. She does describe this as a aching, throbbing sensation with numbness and tingling. Patient does state it is constant and does interfere with her ability perform activities of daily living such as cooking and cleaning. She states that even walking is difficult due to the pain. At our last visit we had discussed a left transforaminal injection that may be beneficial. Today she states that she is interested in this option. Patient also states she did get the compounded cream however it felt like her skin was on fire so she discontinued its use. Patient is managed with gabapentin 300 mg twice a day. She denies any side effects from this medication. She does not take this on a regular basis. Her Hector has been reviewed and is appropriate. Review of Systems: General: No recent weight changes, no fever, no sleep disturbances Respiratory: No cough, no shortness of air, no recurring pulmonary infections Cardiovascular/peripheral vascular: No chest pain, no palpitations, no edema, no shortness of breath Gastrointestinal: No new onset incontinence, normal bowel movements reported Genitourinary: No new onset incontinence Musculoskeletal: Low back pain, left leg pain, left buttocks pain Psychiatric: [Normal mood/affect] Neurological: [Denies weakness in extremities], [denies balance issues] Objective:: Physical Exam: General: Alert and oriented x3, no acute distress, pleasant and cooperative Lungs: Respirations even and unlabored, symmetrical chest expansion Eyes: PERRL Musculoskeletal: Flexion and extension of lumbar [spine] somewhat guarded secondary to pain, [antalgic gait noted] positive left leg raise with decreased sensation to light touch and decreased reflexes Neurological: Speech clear, no gross sensory deficit Assessment:: Degenerative disc disease of lumbar spine with lumbar radiculopathy symptoms, lumbar facet arthropathy, left hip pain, left leg pain Plan:: Patient is experiencing worsening pain in her low back with radiating symptoms down her entire left extremity. Patient did have limited range of motion of her lumbar spine along with a positive left leg raise and decreased sensation light touch and decreased reflexes. I have discussed with the patient that she may benefit from a left transforaminal epidural steroid injection. Risk and benefits were discussed with the patient and she would like to proceed forward with this plan of care. Patient is not on any blood thinners. Patient has tried and failed conservative measures including oral medications, heat and ice, topicals, at home exercising and stretching for longer than 6 weeks. Patient will be scheduled for a left transforaminal epidural steroid injection L4-L5 and L5-S1 under fluoroscopy. Patient has been instructed to contact the clinic with any concerns before the next appointment. Dr. Bah has reviewed this note and agrees with this plan of care. This note was dictated using voice recognition software and make contain errors or omissions. [facility] Disclaimer: The information contained in this section may have been updated after the patient was seen, as this information can be updated by other users. Medical History Anxiety COPD (chronic obstructive pulmonary disease) COVID-19 Depression GERD (gastroesophageal reflux disease) History of left heart catheterization Hyperlipidemia Hypokalemia UTI (urinary tract infection) Surgical History History of hysterectomy History of tubal ligation S/P tympanic tube insertion Family History Other No significant family history Social History Smoking Status: Current every day smoker tobacco type: cigarettes packs per day: 2 second hand exposure: Yes alcohol intake: never substance use type: unknown current occupational status: unemployed Travel in the last 8 weeks: None household members: spouse housing: house caffeine: Yes
== END 2023-08-29 23:59 ==
LOC: SC.PAIN 09:04
PROVIDERS: PCP Nurse Practitioner Family; Visit Provider Nurse Practitioner Family
DX: M51.16 Intervertebral disc disorders with radiculopathy, lumbar region (principal); M47.26 Other spondylosis with radiculopathy, lumbar region; M25.552 Pain in left hip; M79.605 Pain in left leg
CPT/HCPCS: 99212; G0463

== ENCOUNTER 2023-09-18 12:49 | Outpatient (CLI) | payer BC, SELFPAY ==
--- NOTE | 2023-09-18 12:49 | MR_ITS ---
FINAL REPORT CLINICAL HISTORY: dizziness feel like she is passing out f/u FINDINGS: Multiplanar MR imaging of the brain was performed without contrast. There is no evidence of intracranial hemorrhage or mass. The ventricular size is normal. There is no evidence of shift of the midline structures. No abnormal extra-axial fluid collection is identified. The posterior fossa and brainstem have an unremarkable appearance. No area of abnormal restricted diffusion is identified. Normal major vessel vascular flow voids are seen. 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 IMPRESSION: No acute intracranial abnormality. Reviewed, Interpreted and Dictated by Bhavin Dillon III, MD Transcribed by Kala Maldonado Authenticated and [facility]
== END 2023-09-18 23:59 ==
LOC: RAD 12:49
PROVIDERS: PCP Nurse Practitioner Family; Visit Provider Nurse Practitioner Family
DX: R42 Dizziness and giddiness (principal)
CPT/HCPCS: 70551

== ENCOUNTER 2023-09-24 14:28 | Outpatient (CLI) | payer BC, SELFPAY ==
[2023-09-24 14:05] LABS: Basophils # 0.1 K/mm3 (0-0.2); Basophils % 0.7 % (0.1-2.0); Eosinophils # 0.1 K/mm3 (0.0-0.4); Eosinophils % 0.9 % (0.1-12.0); Hematocrit 44.5 % (37.0-47.0); Hemoglobin 14.4 g/dL (12.2-16.2); Lymphocytes # 2.3 K/mm3 (0.7-4.5); Lymphocytes % 22.5 % (10-50); Mean Corpuscular HGB Conc 32.4 g/dL (31.8-35.4); Mean Corpuscular Hemoglobin 32.4 pg (27.0-31.2); Monocytes # 0.5 K/mm3 (0.1-1.0); Monocytes % 4.7 % (1.7-9.3); Neutrophils # 7.3 K/mm3 (1.8-7.8); Neutrophils % 71.1 % (37.0-80.0); Platelet Count 305 K/mm3 (142-424); Red Blood Count 4.45 M/mm3 (4.20-5.40); Red Cell Distribution Width 13.6 % (11.5-17.5); White Blood Count 10.3 K/mm3 (4.8-10.8)
[2023-09-24 14:38] LABS: Chloride 102 mmol/L (98-107); Potassium 3.6 mmoL/L (3.5-5.1); Sodium 137 mmol/L (136-145)
[2023-09-24 14:41] LABS: Alanine Aminotransferase 30 U/L (12-78); Albumin Level 3.9 g/dl (3.5-5.0); Albumin/Globulin Ratio 1.6 (1.1-1.8); Alkaline Phosphatase 104 U/L (38-126); Anion Gap 8.6 mEq/L (5-15); Aspartate Amino Transferase 38 U/L (14-36); Bilirubin,Total 0.5 mg/dl (0.2-1.3); Blood Urea Nitrogen 5 mg/dl (7-17); Carbon Dioxide 30 mmol/L (22.0-30.0); Estimated Glomerular Filt Rate 106 ml/min (>60); GFR (African American) 129 ML/MIN (>60); Globulin 2.5 g/dL (1.3-3.2); Total Protein,Serum 6.4 g/dl (6.3-8.2)
[2023-09-24 14:42] LABS: Calcium 9.8 mg/dl (8.4-10.2); Glucose 106 mg/dl (74-100)
== END 2023-09-24 23:59 | disposition home or self-care (01) ==
LOC: LAB.DROPOF 14:29
PROVIDERS: PCP Nurse Practitioner Family; Visit Provider Nurse Practitioner Family
DX: D72.829 Elevated white blood cell count, unspecified (principal); E87.6 Hypokalemia
CPT/HCPCS: 80053; 85025

== ENCOUNTER 2023-10-27 13:50 | Outpatient (CLI) | payer BC, SELFPAY ==
[2023-10-27 14:46] LABS: Basophils # 0.1 K/mm3 (0-0.2); Eosinophils # 0.1 K/mm3 (0.0-0.4); Eosinophils % 0.8 % (0.1-12.0); Hemoglobin 14.7 g/dL (12.2-16.2); Lymphocytes # 2.7 K/mm3 (0.7-4.5); Lymphocytes % 29.1 % (10-50); Mean Corpuscular HGB Conc 33.5 g/dL (31.8-35.4); Mean Corpuscular Hemoglobin 32.1 pg (27.0-31.2); Mean Corpuscular Volume 95.9 fl (81-99); Mean Platelet Volume 7.8 fl (7.4-10.4); Monocytes # 0.5 K/mm3 (0.1-1.0); Monocytes % 5.1 % (1.7-9.3); Neutrophils # 5.9 K/mm3 (1.8-7.8); Platelet Count 305 K/mm3 (142-424); Red Blood Count 4.59 M/mm3 (4.20-5.40); Red Cell Distribution Width 13.7 % (11.5-17.5); White Blood Count 9.2 K/mm3 (4.8-10.8)
[2023-10-27 15:05] LABS: Alanine Aminotransferase 28 U/L (12-78); Albumin Level 3.9 g/dl (3.5-5.0); Alkaline Phosphatase 91 U/L (38-126); Aspartate Amino Transferase 40 U/L (14-36); Bilirubin,Direct 0.1 mg/dl (0.0-0.4); Bilirubin,Indirect 0.3 mg/dL (0.0-0.9); Bilirubin,Total 0.4 mg/dl (0.2-1.3); Bilirubin,Unconjugated 0.3 mg/dL (0.0-1.1); Blood Urea Nitrogen 6 mg/dl (7-17); Calcium 9.8 mg/dl (8.4-10.2); Carbon Dioxide 30 mmol/L (22.0-30.0); Chloride 101 mmol/L (98-107); Chol/HDL Ratio 7.3 (1-3.5); Cholesterol 286 mg/dl (140-200); Estimated Glomerular Filt Rate 106 ml/min (>60); GFR (African American) 128 ML/MIN (>60); Glucose 103 mg/dl (74-100); HDL Cholesterol 39 mg/dl (40-60); Sodium 136 mmol/L (136-145); Total Protein,Serum 6.8 g/dl (6.3-8.2); Triglycerides 291 mg/dl (30-150); VLDL Cholesterol 58 mg/dL (0-40)
[2023-10-27 15:16] LABS: Direct LDL Cholesterol 179.51 mg/dL (100-129); NT Pro Brain Natriuretic Pep. 40.6 pg/mL (0-125)
[2023-10-27 15:22] LABS: Free T4 (Free Thyroxine) 0.75 ng/dl (0.78-2.19)
[2023-10-27 15:37] LABS: Thyroid Stimulating Hormone 1.44 uIU/mL (0.465-4.68)
== END 2023-10-27 23:59 | disposition home or self-care (01) ==
LOC: LAB 13:51
PROVIDERS: PCP Nurse Practitioner Family; Visit Provider Internal Medicine
DX: R00.2 Palpitations (principal); R06.00 Dyspnea, unspecified; R00.0 Tachycardia, unspecified; R07.89 Other chest pain; R60.9 Edema, unspecified; I50.9 Heart failure, unspecified; E11.9 Type 2 diabetes mellitus without complications; K21.9 Gastro-esophageal reflux disease without esophagitis; Z79.899 Other long term (current) drug therapy
CPT/HCPCS: 36415; 80048; 80061; 80076; 83880; 84439; 84443; 85025; 93270

== ENCOUNTER 2023-11-13 07:21 | Outpatient (CLI) | payer BC, SELFPAY ==
[2023-11-13] VITALS (9 sets, daily range): BP systolic 112–138; BP diastolic 72–81; PULSE 65–99; RESP 16–18; TEMP 36.7; O2SAT 94–99; BMI 33.8
--- NOTE | 2023-11-13 07:23 | CA_ITS ---
APPROVED REPORT EXAM: Comprehensive 2D, Doppler, and color-flow Echocardiogram Hyperbaric Nurse: Nicole Asencio CRT Ht: 5 ft 2 in Wt: 184lbs BSA: 1.85 BP: 110/74 mmHg Indications: COPD, Palpitations, smoker, HLD, Covid 19, GERD, SINUS TACHCARDIA 2D Dimensions Left Atrium 3.35 cm LVEF (Sullivan's) 58.30 % LVOT 1.89 cm (M/F) 1.5-2.5 LV Volume 75.60 mL LA Volume 27.20 mL LA Volume Index 14.80 mL/m2 (M/F) 16-34 EF AP4 54.00 % EF AP2 63.0 % EF BP 58.3 % GL Strain -18.2 % M-Mode Dimensions RVDd 2.79 cm (0.9-2.6) LVDd 4.78 cm (3.5-5.7) Ao Diam 3.04 cm (2.0-3.7) LVDs 3.13 cm (3.5-5.7) IVSd 1.02 cm (0.6-1.1) PWd 0.63 cm (0.6-1.1) EF (Teich) 63.60% FS 34.50% EDV (Teich) 106.50 mL TAPSE 1.45 (<1.7) ESV (Teich) 38.80 mL LV Diastology E Decel Time 100 (160-240 msec) E/A Ratio 0.80 MED E' 6.4 (>= 7 cm/sec) MED A' 7.70 cm/s E'/MED E' Ratio 8.30 (<= 14) LAT E' 7.6 (>= 10 cm/sec) LAT A' 6.80 cm/s E/LAT E' Ratio 6.99 (<= 14) Aortic Valve AoV Peak Khadar. 136.0 (50-130 cm/s) AO Peak GR. 7.40 mmHg Mitral Valve MV E Max Khadar. 53.0 (40-130 cm/s) MV A Velocity 66.0 (40-130 cm/s) E/A Ratio 0.80 MV Decel. Time 100 (160-240 ms) Tricuspid Valve TR P. Velocity 269.00 cm/s RAP Estimate 10.00 mmHg RVSP 38.90 mmHg Left Ventricle The left ventricle is normal size. The left ventricular systolic function is normal. The left ventricular ejection fraction is within the normal range. There is normal left ventricular wall thickness. There is normal LV segmental wall motion. The left ventricular diastolic function is normal. LVEF is 55%. Right Ventricle The right ventricle is normal size. The right ventricular systolic function is normal. Atria The left atrium size is normal. The right atrium size is normal. There is no Doppler evidence of interatrial shunt. Aortic Valve The aortic valve opens well. There is no aortic valvular stenosis. Trace regurgitation is present. Mitral Valve The mitral valve is normal in structure. No evidence of mitral valve stenosis. Trace mitral valve regurgitation noted. Tricuspid Valve The tricuspid valve leaflets are thin and pliable. Trace tricuspid regurgitation. There is insufficient TR jet to estimate RVSP. Pulmonic Valve The pulmonary valve is normal in structure. Trace pulmonic regurgitation. Great Vessels The aortic root is normal in size. The ascending aorta is normal in size. IVC is normal in size and collapses >50% with inspiration. Pericardium There is no pericardial effusion. Other Information Study Quality: Adequate Conclusion Normal biventricular systolic function. No significant valvular stenosis or regurgitation. Electronically signed by : Mimi Limon MD 11/19/2023 12:13:13
--- NOTE | 2023-11-13 08:02 | CT_ITS ---
APPROVED REPORT Manager Research: CLINICAL INDICATION Chest Pain TECHNIQUE Image Acquisition: A 128 slice MDCT scanner ([employer] Spectralminda View) was used for data acquisition. A noncontrast coronary calcium scan was performed. A CT attenuation threshold of 130 Hounsfield units (HU) was used for the detection of calcium in contiguous voxels of 1 sq mm in area to be counted as individual lesions. Bolus tracking in the ascending aorta with a threshold of 180 HU was performed. Immediately afterwards, ECG synchronized cardiac CT was then performed from the cardiac base to apex using retrospective gating with ECG tube current modulation. A total of 85 mL of Isovue 370 mg/mL contrast medium was administered at 5 mL/sec followed by a saline flush using a biphasic injection protocol. A tube voltage of 120 KVp was used. The average heart rate at the time of acquisition was 57 bpm and regular. Image Reconstruction Transaxial images were reconstructed at 0.67 mm slide thickness. Data was reviewed interactively on an advanced workstation capable of 2 and 3-dimensional displays in all conventional reconstruction formats, including multiplanar reformations, maximum intensity projections, curved multiplanar reformations, and volume rendered reconstructions. When applicable, selected routine images describing the relevant coronary anatomy and pathology were saved and sent to PACS. Complications None Technical Quality Overall image quality was good. Coronary artery opacification was adequate. Total DLP (Dose-Length Product) is 1234.8 mGy-cm. The reported value represents the total of one or more individual components during the CT acquisition of this date and at this time, and as such, the same value may appear in more than one CT report depending on the interpreting/reporting physicians. COMPARISON None FINDINGS CT Coronary Calcium Scoring LMA (Left Main Artery) = 0 LAD (Left Anterior Descending) = 0 LCX (Left Coronary Circumflex) = 0 RCA (Right Coronary Artery) = 0 Total Calcium Score = 0 using the AJ-130 method. The interpretation of the calcium heart score is based on the following continuum*: 0 = no calcified plaque detected (risk of coronary artery disease is very low ??? less than 5%) 1-10 = calcium detected in extremely minimal levels (risk of coronary diseases is still low ??? less than 10%) 11-100 = mild levels of plaque detected with certainty (mild or minimal narrowing of heart arteries is likely) 101-400 = definite,at least moderate levels of plaque detected (relatively high risk of a heart attack within 3-5 years) >401-999 = extensive levels of plaque detected (high risk of heart attack, high levels of vascular disease are present, high likelihood of at least one significant coronary narrowing) *The calcium heart score quantifies the burden of coronary calcification/plaque in the coronary arteries. The calcium heart score is not able to evaluate the presence or burden of non-calcified (i.e. soft) plaque. There is no identifiable calcification in the aortic valve, mitral annulus or mitral valve, pericardium, or myocardium. Coronary CT Angiography The coronary arterial system is left dominant. Quantitative Stenosis Grading: Left Main (LM): The left main originates normally from the left sinus of Valsalva. The LM trifurcates into the left anterior descending artery, ramus intermedius, and left circumflex artery. The LM is patent with no evidence of atherosclerosis. Left Anterior Descending (LAD) and Diagonal Branches: The LAD gives off 3 diagonal branch(es). The LAD and its branches are patent with no evidence of atherosclerosis. There is no evidence of LAD-myocardial bridge. Ramus-intermedius (RI): The RI is patent. Left Circumflex (LCX) and Obtuse Marginals (OM): The LCX gives off 2 Obtuse Marginal (OM) branch(es). The LCX and its branches are patent with no evidence of atherosclerosis. Right Coronary Artery (RCA): The RCA is a small caliber vessel. The RCA originates normally from the right sinus of Valsalva. The RCA and its branches are patent with no evidence of atherosclerosis. Non-Coronary Cardiac Findings: Analysis of the left ventricular (LV) structure and function was performed after 3-D reconstruction of the LV from axial images, with user-corrected automatic contouring for assessment of LV volumes and user-defined reconstruction from oblique planes for measurement of 3-D cardiac structure and function. -The left ventricle systolic function is normal. -There is no left atrial appendage filling defect. Two right pulmonary veins and two left pulmonary veins drain normally into the left atrium. -No pericardial thickening or calcification. -Central and branch pulmonary arteries in the [id number] are unremarkable. -Thoracic aorta within the visualized thoracic aortic-branches in the [id number] is unremarkable. Extracardiac Structures No significant extra-cardiac findings. Note, however, that this study is focused on the cardiac findings. IMPRESSION -Absence of coronary calcification with an Agatston score = 0 using the AJ-130 method. -No evidence of significant flow-limiting atherosclerosis of the coronary arteries. -No evidence of coronary anomalies or myocardial bridges. -CAD-RADS 0. Management recommendations per ACC/AHA guidelines*, as clinically appropriate. -Mild, non-calcified plaque noted in the descending thoracic aorta. *Recommendations: CAD RADS 0: Reassurance. Consider non-atherosclerotic causes of chest pain. CAD RADS 1: Consider non-atherosclerotic causes of chest pain. Consider preventive therapy and risk factor modification. CAD RADS 2: Consider non-atherosclerotic causes of chest pain. Consider preventive therapy and risk factor modification, particularly for patients with nonobstructive plaque in multiple segments. CAD RADS 3: Consider further functional testing. Consider symptom-guided anti-ischemic and preventive pharmacotherapy as well as risk factor modification per published guideline statements. CAD RADS 4A: Consider further functional testing or invasive coronary angiography with revascularization per published guideline statements. Consider symptom-guided anti-ischemic and preventive pharmacotherapy as well as risk factor modification per published guideline statements. CAD RADS 4B: Invasive coronary angiography recommended with revascularization per published guideline statements. Consider symptom-guided anti-ischemic and preventive pharmacotherapy as well as risk factor modification per published guideline statements. CAD RADS 5: Consider invasive angiography and/or viability assessment with revascularization per published guideline statements. Consider symptom-guided anti-ischemic and preventive pharmacotherapy as well as risk factor modification per published guideline statements. CRITICAL RESULT None COMMUNICATION Per this written report The coronary and cardiac findings of this CCTA were reviewed, reported, and signed by Roderick Limon MD (Market Research Coordinator) Conclusion Electronically signed by : Mimi Limon MD 11/18/2023 16:17:13
[2023-11-13] MEDS: METOPROLOL TARTRATE 25MG TABLET *IVABRADINE+METOPROLOL REGIMINE 25 MG PO ×2 (08:47→09:44)
[2023-11-13] MEDS: METOPROLOL TARTRATE 50MG TABLET *IVABRADINE+METOPROLOL REGIMINE 50 MG PO ×2 (08:47→09:44)
[2023-11-13] MEDS: IVABRADINE HCL 7.5MG TABLET *IVABRADINE+METOPROLOL REGIMINE 15 MG PO (08:47)
[2023-11-13] MEDS: NITROGLYCERIN 0.4MG SL TABLET 0.800000000000000044 MG SL (10:59)
[2023-11-13] MEDS: METOPROLOL TARTRATE 5MG/5ML VIAL *IVABRADINE+METOPROLOL REGIMINE 5 MG IV (11:15)
[2023-11-13] MEDS: SODIUM CHLORIDE 0.9% 10ML SYR (RAD ONLY) 10 ML IV (11:33)
[2023-11-13] MEDS: IOPAMIDOL-370 (76%);100ML BOTTLE 85 ML IV (11:33)
[2023-11-13] MEDS: 0.9 % SODIUM CHLORIDE 50 ML VIAL IV (11:33)
== END 2023-11-13 23:59 | disposition home or self-care (01) ==
PROVIDERS: PCP Nurse Practitioner Family; Visit Provider Internal Medicine
DX: R07.89 Other chest pain (principal); R06.00 Dyspnea, unspecified; R00.2 Palpitations; R00.0 Tachycardia, unspecified
CPT/HCPCS: 75574; 93306; Q9967

== ENCOUNTER 2023-11-27 15:08 | Outpatient (CLI) | payer BC, SELFPAY ==
[2023-11-27 16:04] LABS: D-Dimer < 0.25 ug/mL (0.0-0.5)
== END 2023-11-27 23:59 | disposition home or self-care (01) ==
LOC: LAB 15:09
PROVIDERS: PCP Nurse Practitioner Family; Visit Provider Internal Medicine
DX: Z01.810 Encounter for preprocedural cardiovascular examination (principal); R06.09 Other forms of dyspnea; R00.2 Palpitations; R00.0 Tachycardia, unspecified; R42 Dizziness and giddiness; F17.200 Nicotine dependence, unspecified, uncomplicated; K21.9 Gastro-esophageal reflux disease without esophagitis; J44.9 Chronic obstructive pulmonary disease, unspecified
CPT/HCPCS: 36415; 85378

== ENCOUNTER 2024-01-02 13:13 | Outpatient (CLI) | payer BC, SELFPAY ==
[2024-01-02 13:26] LABS: Basophils # 0.1 K/mm3 (0-0.2); Basophils % 0.8 % (0.1-2.0); Eosinophils # 0.1 K/mm3 (0.0-0.4); Eosinophils % 0.7 % (0.1-12.0); Hemoglobin 13.2 g/dL (12.2-16.2); Lymphocytes # 2.6 K/mm3 (0.7-4.5); Lymphocytes % 34.1 % (10-50); Mean Corpuscular HGB Conc 37.8 g/dL (31.8-35.4); Mean Corpuscular Hemoglobin 35.4 pg (27.0-31.2); Mean Corpuscular Volume 93.7 fl (81-99); Mean Platelet Volume 8.1 fl (7.4-10.4); Monocytes # 0.4 K/mm3 (0.1-1.0); Neutrophils # 4.6 K/mm3 (1.8-7.8); Neutrophils % 59.4 % (37.0-80.0); Platelet Count 267 K/mm3 (142-424); Red Blood Count 3.73 M/mm3 (4.20-5.40); White Blood Count 7.8 K/mm3 (4.8-10.8)
[2024-01-02 14:27] LABS: Alanine Aminotransferase 23 U/L (12-78); Albumin Level 3.7 g/dl (3.5-5.0); Albumin/Globulin Ratio 1.3 (1.1-1.8); Alkaline Phosphatase 92 U/L (38-126); Aspartate Amino Transferase 29 U/L (14-36); Bilirubin,Total 0.3 mg/dl (0.2-1.3); Blood Urea Nitrogen 8 mg/dl (7-17); Calcium 9.9 mg/dl (8.4-10.2); Carbon Dioxide 28 mmol/L (22.0-30.0); Chloride 105 mmol/L (98-107); Cholesterol 237 mg/dl (140-200); Estimated Glomerular Filt Rate 131 ml/min (>60); GFR (African American) 158 ML/MIN (>60); Globulin 2.8 g/dL (1.3-3.2); Glucose 90 mg/dl (74-100); HDL Cholesterol 34 mg/dl (40-60); Sodium 139 mmol/L (136-145); Total Protein,Serum 6.5 g/dl (6.3-8.2)
[2024-01-02 14:38] LABS: Direct LDL Cholesterol 119.02 mg/dL (100-129)
[2024-01-02 14:43] LABS: Triglycerides 487 mg/dl (30-150)
[2024-01-02 14:58] LABS: Thyroid Stimulating Hormone 0.94 uIU/mL (0.465-4.68)
== END 2024-01-02 23:59 | disposition home or self-care (01) ==
LOC: LAB.DROPOF 13:13
PROVIDERS: PCP Nurse Practitioner Family; Visit Provider Nurse Practitioner Family
DX: R74.8 Abnormal levels of other serum enzymes (principal); E87.6 Hypokalemia
CPT/HCPCS: 80050; 80053; 80061; 84443; 85025

== ENCOUNTER 2024-02-10 10:30 | Outpatient (CLI) | payer BC, MEDICAID, SELFPAY | END 2024-02-10 23:59 | disposition home or self-care (01) | LOC: LAB.DROPOF 02-11 13:12 | PROVIDERS: PCP Nurse Practitioner Family; Visit Provider Nurse Practitioner Family | DX: R10.9 Unspecified abdominal pain (principal) | CPT/HCPCS: 87086 ==

== ENCOUNTER 2024-02-12 15:46 | Outpatient (CLI) | payer BC, MEDICAID, SELFPAY | END 2024-02-12 23:59 | disposition home or self-care (01) | LOC: LAB.DROPOF 02-13 10:01 | PROVIDERS: PCP Nurse Practitioner Family; Visit Provider Nurse Practitioner Family | DX: R10.9 Unspecified abdominal pain (principal) | CPT/HCPCS: 87086 ==

== ENCOUNTER 2024-02-18 14:09 | Outpatient (CLI) | payer BC, MEDICAID, SELFPAY ==
--- NOTE | 2024-02-18 14:25 | US_ITS ---
FINAL REPORT CLINICAL HISTORY: Urinary frequency, suprapubic pain COMPARISON: None FINDINGS: ULTRASOUND BLADDER: Ultrasound of the bladder was performed pre and post void. The patient could only tolerate 47.4 cc of fluid in her bladder, and had a significant postvoid residual of 13.74 cc. No definite focal bladder mass is identified. IMPRESSION: Patient could only tolerate a low volume of fluid in the bladder, and a significant postvoid residual was present. Reviewed, Interpreted and Dictated by Bhavin Dillon III, MD Transcribed by Praveena Peralta Authenticated and [facility]
--- NOTE | 2024-02-18 14:25 | MM_ITS ---
PROCEDURE INFORMATION: Exam: MG Bilateral Screening 3D Mammography Exam date and time: 02/18/2024 2:35 PM Age: 48 years old Clinical indication: Screening examination. TECHNIQUE: Imaging protocol: Bilateral Screening tomosynthesis and 2D mammography including computer-aided detection (CAD) when performed. COMPARISON: 1. MG MM DIG SCREENING MAMM BI W/CAD 06/20/2021 4:06 PM 2. MG DMSB DIG MAMM-SCREEN [place] 12/09/2014 8:30 AM FINDINGS: MAMMOGRAPHY: Breast composition: The breasts are almost entirely fatty. Mass: None. Architectural distortion: None. Calcifications: No suspicious calcifications. Asymmetric density: None. Skin thickening: None. Axillary adenopathy: None. IMPRESSION: No mammographic evidence of malignancy. Annual screening is recommended unless otherwise clinically indicated. ASSESSMENT: BI-RADS Category 1: Negative
[2024-02-18 14:41] LABS: Basophils # 0.1 K/mm3 (0-0.2); Basophils % 0.8 % (0.1-2.0); Eosinophils # 0.1 K/mm3 (0.0-0.4); Eosinophils % 0.7 % (0.1-12.0); Hematocrit 40.6 % (37.0-47.0); Hemoglobin 13.2 g/dL (12.2-16.2); Lymphocytes # 3.1 K/mm3 (0.7-4.5); Lymphocytes % 33.3 % (10-50); Mean Corpuscular HGB Conc 32.5 g/dL (31.8-35.4); Mean Corpuscular Hemoglobin 31.1 pg (27.0-31.2); Mean Corpuscular Volume 95.9 fl (81-99); Mean Platelet Volume 8.6 fl (7.4-10.4); Monocytes # 0.6 K/mm3 (0.1-1.0); Monocytes % 6.1 % (1.7-9.3); Neutrophils # 5.4 K/mm3 (1.8-7.8); Neutrophils % 59.1 % (37.0-80.0); Platelet Count 304 K/mm3 (142-424); Red Blood Count 4.24 M/mm3 (4.20-5.40); Red Cell Distribution Width 13.5 % (11.5-17.5); White Blood Count 9.2 K/mm3 (4.8-10.8)
[2024-02-18 15:05] LABS: Creatinine,Urine Random 59 mg/dL (Not Estab.)
[2024-02-18 15:08] LABS: Alanine Aminotransferase 29 U/L (12-78); Albumin Level 3.8 g/dl (3.5-5.0); Alkaline Phosphatase 74 U/L (38-126); Anion Gap 5.5 mEq/L (5-15); Aspartate Amino Transferase 35 U/L (14-36); Bilirubin,Direct 0.3 mg/dl (0.0-0.4); Bilirubin,Indirect 0.1 mg/dL (0.0-0.9); Bilirubin,Total 0.4 mg/dl (0.2-1.3); Bilirubin,Unconjugated 0.2 mg/dL (0.0-1.1); Blood Urea Nitrogen 10 mg/dl (7-17); Calcium 9.6 mg/dl (8.4-10.2); Carbon Dioxide 29 mmol/L (22.0-30.0); Chloride 105 mmol/L (98-107); Chol/HDL Ratio 6.7 (1-3.5); Cholesterol 275 mg/dl (140-200); Estimated Glomerular Filt Rate 89 ml/min (>60); GFR (African American) 107 ML/MIN (>60); Glucose 95 mg/dl (74-100); HDL Cholesterol 41 mg/dl (40-60); Potassium 3.5 mmoL/L (3.5-5.1); Sodium 136 mmol/L (136-145); Total Protein,Serum 6.9 g/dl (6.3-8.2); Triglycerides 199 mg/dl (30-150); VLDL Cholesterol 40 mg/dL (0-40)
[2024-02-18 15:09] LABS: Microalbumin < 6.000 mg/L (0-16.7)
[2024-02-18 15:21] LABS: Free T4 (Free Thyroxine) 0.82 ng/dl (0.78-2.19)
== END 2024-02-18 23:59 | disposition home or self-care (01) ==
LOC: RAD 14:09
PROVIDERS: Internal Medicine; PCP Nurse Practitioner Family; Visit Provider Nurse Practitioner Family
DX: F17.200 Nicotine dependence, unspecified, uncomplicated (principal); R00.0 Tachycardia, unspecified; R06.09 Other forms of dyspnea; R00.2 Palpitations; R42 Dizziness and giddiness; J44.9 Chronic obstructive pulmonary disease, unspecified; K21.9 Gastro-esophageal reflux disease without esophagitis; Z12.39 Encounter for other screening for malignant neoplasm of breast; R35.0 Frequency of micturition; R10.2 Pelvic and perineal pain
CPT/HCPCS: 76857; 77063; 77067; 80048; 80061; 80076; 82043; 82570; 84439; 84443; 85025

== ENCOUNTER 2024-02-27 15:03 | Outpatient (CLI) | payer BC, MEDICAID, SELFPAY ==
[2024-02-27 13:15] LABS: Creatinine,Urine Random 65 mg/dL (Not Estab.)
[2024-02-27 13:17] LABS: Microalbumin < 6.000 mg/L (0-16.7)
[2024-02-27 13:20] LABS: Alanine Aminotransferase 26 U/L (12-78); Albumin Level 4.2 g/dl (3.5-5.0); Alkaline Phosphatase 84 U/L (38-126); Aspartate Amino Transferase 34 U/L (14-36); Bilirubin,Direct 0.4 mg/dl (0.0-0.4); Bilirubin,Indirect 0.2 mg/dL (0.0-0.9); Bilirubin,Total 0.6 mg/dl (0.2-1.3); Bilirubin,Unconjugated 0.2 mg/dL (0.0-1.1); Chol/HDL Ratio 4.5 (1-3.5); Cholesterol 192 mg/dl (140-200); HDL Cholesterol 43 mg/dl (40-60); Total Protein,Serum 7.6 g/dl (6.3-8.2); Triglycerides 195 mg/dl (30-150); VLDL Cholesterol 39 mg/dL (0-40)
[2024-02-27 13:59] LABS: Alanine Aminotransferase 26 U/L (12-78); Albumin Level 4.3 g/dl (3.5-5.0); Albumin/Globulin Ratio 1.3 (1.1-1.8); Alkaline Phosphatase 82 U/L (38-126); Aspartate Amino Transferase 34 U/L (14-36); Bilirubin,Total 0.5 mg/dl (0.2-1.3); Blood Urea Nitrogen 11 mg/dl (7-17); Calcium 9.9 mg/dl (8.4-10.2); Carbon Dioxide 28 mmol/L (22.0-30.0); Chloride 103 mmol/L (98-107); Estimated Glomerular Filt Rate 89 ml/min (>60); GFR (African American) 107 ML/MIN (>60); Globulin 3.2 g/dL (1.3-3.2); Glucose 86 mg/dl (74-100); Sodium 137 mmol/L (136-145); Total Protein,Serum 7.5 g/dl (6.3-8.2)
[2024-02-27 14:01] LABS: 25-OH Vitamin D, Total 49.3 ng/mL (30-100)
[2024-02-27 14:05] LABS: Anion Gap 10.2 mEq/L (5-15); Potassium 4.2 mmoL/L (3.5-5.1)
== END 2024-02-27 23:59 | disposition home or self-care (01) ==
LOC: LAB.DROPOF 15:03
PROVIDERS: Internal Medicine; Nurse Practitioner Family; PCP Nurse Practitioner Family; Visit Provider Nurse Practitioner Family
DX: E78.5 Hyperlipidemia, unspecified (principal); E87.6 Hypokalemia; R79.89 Other specified abnormal findings of blood chemistry; F17.200 Nicotine dependence, unspecified, uncomplicated; R00.0 Tachycardia, unspecified; R06.09 Other forms of dyspnea; R00.2 Palpitations; R42 Dizziness and giddiness; J44.9 Chronic obstructive pulmonary disease, unspecified; K21.9 Gastro-esophageal reflux disease without esophagitis
CPT/HCPCS: 80053; 80061; 80076; 82043; 82306; 82570

== ENCOUNTER 2024-04-19 13:40 | Outpatient (CLI) | payer BC, MEDICAID, SELFPAY ==
--- NOTE | 2024-04-19 13:43 | XR_ITS ---
PROCEDURE INFORMATION: Exam: XR Chest Exam date and time: 04/19/2024 1:45 PM Age: 48 years old Clinical indication: Dyspnea; Additional info: Dysnea with excercise TECHNIQUE: Imaging protocol: Radiologic exam of the chest. Views: 1 view. COMPARISON: CR XR CHEST PORTABLE 11/01/2022 3:08 PM FINDINGS: Lungs: No evidence of airspace infiltrate. No pulmonary edema. Pleural spaces: No visible pleural effusion. No pneumothorax. Heart/Mediastinum: Cardiomediastinal silouhette is within normal limits. Bones/joints: No evidence of acute osseous abnormality. IMPRESSION: No acute findings.
== END 2024-04-19 23:59 | disposition home or self-care (01) ==
LOC: RAD 13:41
PROVIDERS: PCP Nurse Practitioner Family; Visit Provider Specialist
DX: R06.09 Other forms of dyspnea (principal); J44.9 Chronic obstructive pulmonary disease, unspecified; R09.02 Hypoxemia
CPT/HCPCS: 71045

== ENCOUNTER 2024-04-21 14:52 | Outpatient (CLI) | payer BC, MEDICAID, SELFPAY ==
[2024-04-21 13:07] LABS: Alanine Aminotransferase 20 U/L (12-78); Albumin Level 4.2 g/dl (3.5-5.0); Albumin/Globulin Ratio 1.4 (1.1-1.8); Alkaline Phosphatase 61 U/L (38-126); Aspartate Amino Transferase 38 U/L (14-36); Bilirubin,Total 0.7 mg/dl (0.2-1.3); Blood Urea Nitrogen 6 mg/dl (7-17); Calcium 9.5 mg/dl (8.4-10.2); Carbon Dioxide 21 mmol/L (22.0-30.0); Chloride 108 mmol/L (98-107); Estimated Glomerular Filt Rate 106 ml/min (>60); GFR (African American) 128 ML/MIN (>60); Globulin 2.9 g/dL (1.3-3.2); Glucose 79 mg/dl (74-100); Sodium 139 mmol/L (136-145); Total Protein,Serum 7.1 g/dl (6.3-8.2)
[2024-04-21 16:08] LABS: HIV (1&2) Antibody Rapid NONREACTIVE (NONREACTIVE)
[2024-04-22 07:20] LABS: HCV Ab Non Reactive (Non Reactive)
== END 2024-04-21 23:59 | disposition home or self-care (01) ==
LOC: LAB.DROPOF 14:52
PROVIDERS: PCP Nurse Practitioner Family; Visit Provider Nurse Practitioner Family
DX: K76.0 Fatty (change of) liver, not elsewhere classified (principal); R74.8 Abnormal levels of other serum enzymes; Z11.59 Encounter for screening for other viral diseases; Z11.4 Encounter for screening for human immunodeficiency virus [HIV]
CPT/HCPCS: 80053; 86803; 87389

== ENCOUNTER 2024-04-23 14:23 | Outpatient (CLI) | payer BC, MEDICAID, SELFPAY ==
[2024-04-23 15:30] VITALS: PULSE 72; PULSE 76
[2024-04-23] MEDS: ALBUTEROL 0.083% 2.5 MG/3 ML NEB IH (15:30)
== END 2024-04-23 23:59 | disposition home or self-care (01) ==
LOC: RT 14:24
PROVIDERS: PCP Nurse Practitioner Family; Visit Provider Specialist
DX: R06.09 Other forms of dyspnea (principal); R09.02 Hypoxemia; J44.9 Chronic obstructive pulmonary disease, unspecified
CPT/HCPCS: 94060; 94618; 94640; 94726; 94729; J7613

== ENCOUNTER 2024-04-24 22:49 | Emergency (ER) | payer BC, MEDICAID, SELFPAY ==
--- NOTE | 2024-04-24 22:47 | ECG_ITS ---
APPROVED REPORT Exam: Resting ECG HR:64 bpm ECG Measurements Heart Rate 64 AXES MA 129 P 46 QRSd 94 QRS 30 QT 386 T 64 QTc 395 Conclusion SINUS RHYTHM NORMAL ECG Electronically signed by : FOREIGN WALKER, 04/25/2024 04:27:55
[2024-04-24 22:50] VITALS: BP 141/72; PULSE 74; RESP 18; TEMP 36.4; O2SAT 98; BMI 31.8
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
[2024-04-24 23:00] VITALS: BP 122/94; PULSE 65; RESP 16; O2SAT 98
--- NOTE | 2024-04-24 23:01 | XR_ITS ---
PROCEDURE INFORMATION: Exam: XR Chest Exam date and time: 04/24/2024 11:02 PM Age: 48 years old Clinical indication: Pain; Chest pressure; Additional info: Cp TECHNIQUE: Imaging protocol: Radiologic exam of the chest. Views: 1 view. COMPARISON: CR XR CHEST AP 04/19/2024 1:45 PM FINDINGS: Lungs: Unremarkable. No consolidation. Incidental right lung calcified granuloma Pleural spaces: Unremarkable. No pleural effusion. No pneumothorax. Heart/Mediastinum: Unremarkable. No cardiomegaly. Bones/joints: Unremarkable. IMPRESSION: No acute findings.
[2024-04-24] MEDS: ALUMINUM/MAGNESIUM/SIMETHICONE 30ML UDC 30 ML PO (23:12)
[2024-04-24] MEDS: ASPIRIN 81MG CHEWABLE TABLET 324 MG PO (23:12)
[2024-04-24 23:17] VITALS: PULSE 65
[2024-04-24 23:19] LABS: Basophils # 0.2 K/mm3 (0-0.2); Basophils % 1.1 % (0.1-2.0); Eosinophils % 0.3 % (0.1-12.0); Hematocrit 44.8 % (37.0-47.0); Hemoglobin 15.6 g/dL (12.2-16.2); Lymphocytes # 3.7 K/mm3 (0.7-4.5); Lymphocytes % 28.6 % (10-50); Mean Corpuscular HGB Conc 34.8 g/dL (31.8-35.4); Mean Corpuscular Hemoglobin 31.1 pg (27.0-31.2); Mean Corpuscular Volume 89.3 fl (81-99); Mean Platelet Volume 7.3 fl (7.4-10.4); Monocytes # 0.8 K/mm3 (0.1-1.0); Monocytes % 6.1 % (1.7-9.3); Neutrophils # 8.3 K/mm3 (1.8-7.8); Neutrophils % 63.9 % (37.0-80.0); Platelet Count 316 K/mm3 (142-424); Red Blood Count 5.02 M/mm3 (4.20-5.40)
[2024-04-24 23:20] LABS: Chloride 101 mmol/L (98-107)
[2024-04-24 23:21] LABS: Albumin Level 4.8 g/dl (3.5-5.0); Sodium 140 mmol/L (136-145)
[2024-04-24 23:22] LABS: Potassium 2.9 mmoL/L (3.5-5.1)
--- NOTE | 2024-04-24 23:22 | PC.NURSE ---
notified MD Neely of critical K+ of 2.9
[2024-04-24 23:23] LABS: Alanine Aminotransferase 17 U/L (12-78); Aspartate Amino Transferase 22 U/L (14-36); Blood Urea Nitrogen 9 mg/dl (7-17); Creatinine Clearance Estimated 124 mL/min (50-200); Estimated Glomerular Filt Rate 89 ml/min (>60); GFR (African American) 107 ML/MIN (>60)
[2024-04-24 23:24] LABS: Albumin/Globulin Ratio 1.3 (1.1-1.8); Alkaline Phosphatase 86 U/L (38-126); Anion Gap 11.9 mEq/L (5-15); Bilirubin,Total 0.5 mg/dl (0.2-1.3); Calcium 9.6 mg/dl (8.4-10.2); Carbon Dioxide 30 mmol/L (22.0-30.0); Globulin 3.7 g/dL (1.3-3.2); Glucose 128 mg/dl (74-100); Total Protein,Serum 8.5 g/dl (6.3-8.2)
[2024-04-24 23:27] LABS: Activated Partial Thrombo Time 25.6 seconds (22.8-30.6); INR 0.93 (0.9-1.1); Prothrombin Time 10.5 seconds (10.1-12.5)
[2024-04-24 23:30] VITALS: BP 127/86; PULSE 62; RESP 21; O2SAT 98
[2024-04-24 23:31] LABS: Magnesium 1.9 mg/dl (1.6-2.3)
[2024-04-24 23:33] LABS: NT Pro Brain Natriuretic Pep. 196 pg/mL (0-125)
[2024-04-24] MEDS: POTASSIUM CHLORIDE 20MEQ TAB 80 MEQ PO (23:38)
[2024-04-24 23:54] LABS: Troponin I < 0.01 ng/ml (0.00-0.034)
[2024-04-25 00:01] VITALS: BP 128/91; PULSE 61; RESP 22; O2SAT 97
[2024-04-25 00:30] VITALS: BP 133/88; PULSE 68; RESP 24; O2SAT 97
[2024-04-25] MEDS: LIDOCAINE 5% TRANSDERMAL PATCH 1 EACH TP (00:46)
[2024-04-25] MEDS: KETOROLAC 30MG/ML VIAL 15 MG IV (00:46)
[2024-04-25 01:00] VITALS: BP 137/100; PULSE 65; RESP 13; O2SAT 98
[2024-04-25 02:19] LABS: Troponin I < 0.01 ng/ml (0.00-0.034)
[2024-04-25 02:21] VITALS: BP 145/90; PULSE 67; RESP 22; TEMP 36.8
[2024-04-25 03:07] LABS: HIV (1&2) Antibody Rapid NONREACTIVE (NONREACTIVE)
[2024-04-27 05:14] LABS: HCV Ab Non Reactive (Non Reactive)
== END 2024-04-25 02:28 | disposition home or self-care (01) ==
PROVIDERS: Emergency Medicine; Emergency Provider Emergency Medicine; PCP Nurse Practitioner Family
DX: R07.9 Chest pain, unspecified (principal)
CPT/HCPCS: 71045; 80053; 83735; 83880; 84484; 85025; 85610; 85730; 86803; 87389; 93005; 96374; 99284; J1885

== ENCOUNTER 2024-05-03 14:02 | Outpatient (CLI) | payer BC, MEDICAID, SELFPAY ==
[2024-05-03 12:52] LABS: Basophils # 0.1 K/mm3 (0-0.2); Basophils % 0.6 % (0.1-2.0); Eosinophils # 0.1 K/mm3 (0.0-0.4); Hematocrit 41.8 % (37.0-47.0); Hemoglobin 14.5 g/dL (12.2-16.2); Lymphocytes # 2.9 K/mm3 (0.7-4.5); Lymphocytes % 28.8 % (10-50); Mean Corpuscular HGB Conc 34.7 g/dL (31.8-35.4); Mean Corpuscular Hemoglobin 31.4 pg (27.0-31.2); Mean Corpuscular Volume 90.4 fl (81-99); Mean Platelet Volume 7.9 fl (7.4-10.4); Monocytes # 0.6 K/mm3 (0.1-1.0); Monocytes % 5.6 % (1.7-9.3); Neutrophils # 6.4 K/mm3 (1.8-7.8); Neutrophils % 63.9 % (37.0-80.0); Platelet Count 317 K/mm3 (142-424); Red Blood Count 4.62 M/mm3 (4.20-5.40); Red Cell Distribution Width 13.7 % (11.5-17.5)
[2024-05-03 13:32] LABS: Alanine Aminotransferase 32 U/L (12-78); Albumin Level 4.3 g/dl (3.5-5.0); Albumin/Globulin Ratio 1.5 (1.1-1.8); Alkaline Phosphatase 101 U/L (38-126); Anion Gap 15.5 mEq/L (5-15); Aspartate Amino Transferase 37 U/L (14-36); Bilirubin,Total 0.6 mg/dl (0.2-1.3); Blood Urea Nitrogen 7 mg/dl (7-17); Calcium 9.6 mg/dl (8.4-10.2); Carbon Dioxide 24 mmol/L (22.0-30.0); Chloride 103 mmol/L (98-107); Estimated Glomerular Filt Rate 106 ml/min (>60); GFR (African American) 128 ML/MIN (>60); Globulin 2.8 g/dL (1.3-3.2); Glucose 93 mg/dl (74-100); Potassium 4.5 mmoL/L (3.5-5.1); Sodium 138 mmol/L (136-145); Total Protein,Serum 7.1 g/dl (6.3-8.2)
== END 2024-05-03 23:59 | disposition home or self-care (01) ==
LOC: LAB.DROPOF 14:02
PROVIDERS: PCP Nurse Practitioner Family; Visit Provider Nurse Practitioner Family
DX: E87.6 Hypokalemia (principal); R07.9 Chest pain, unspecified
CPT/HCPCS: 80053; 85025

== ENCOUNTER 2024-06-02 10:23 | Outpatient (POV) | payer BC, MEDICAID, SELFPAY ==
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
[2024-06-02 12:29] VITALS: BP 110/71; PULSE 96; RESP 14; O2SAT 100; BMI 34.4
== END 2024-06-02 23:59 | disposition home or self-care (01) ==
PROVIDERS: PCP Nurse Practitioner Family; Visit Provider Nurse Practitioner Family
DX: M54.16 Radiculopathy, lumbar region (principal); F17.210 Nicotine dependence, cigarettes, uncomplicated; Z73.89 Other problems related to life management difficulty
CPT/HCPCS: 99212; G0463

== ENCOUNTER 2024-06-02 13:25 | Outpatient (CLI) | payer BC, MEDICAID, SELFPAY ==
[2024-06-02 14:04] LABS: Alanine Aminotransferase 23 U/L (12-78); Albumin Level 4.2 g/dl (3.5-5.0); Albumin/Globulin Ratio 1.6 (1.1-1.8); Alkaline Phosphatase 90 U/L (38-126); Anion Gap 12.3 mEq/L (5-15); Aspartate Amino Transferase 36 U/L (14-36); Bilirubin,Total 0.5 mg/dl (0.2-1.3); Blood Urea Nitrogen 8 mg/dl (7-17); Calcium 9.7 mg/dl (8.4-10.2); Carbon Dioxide 30 mmol/L (22.0-30.0); Chloride 103 mmol/L (98-107); Estimated Glomerular Filt Rate 89 ml/min (>60); GFR (African American) 107 ML/MIN (>60); Globulin 2.6 g/dL (1.3-3.2); Glucose 98 mg/dl (74-100); Sodium 141 mmol/L (136-145); Total Protein,Serum 6.8 g/dl (6.3-8.2)
[2024-06-02 21:05] LABS: Potassium 4.3 mmoL/L (3.5-5.1)
[2024-06-03 15:37] LABS: Antinuclear Antibodies (ANA) Negative (Negative)
== END 2024-06-02 23:59 | disposition home or self-care (01) ==
LOC: LAB.DROPOF 13:25
PROVIDERS: PCP Nurse Practitioner Family; Visit Provider Nurse Practitioner Family
DX: L30.9 Dermatitis, unspecified (principal); R60.9 Edema, unspecified
CPT/HCPCS: 80053; 86038

== ENCOUNTER 2024-06-11 14:51 | Outpatient (CLI) | payer BC, MEDICAID, SELFPAY ==
--- NOTE | 2024-06-11 14:52 | MR_ITS ---
FINAL REPORT CLINICAL HISTORY: LBP with neuropathy COMPARISON: 03/06/2023 FINDINGS: Multiplanar MR imaging of the lumbar spine was performed without contrast. On the sagittal T2-weighted images, there is abnormal decreased signal at L4-5 and L5-S1 with endplate reactive signal changes at L5-S1. The vertebrae are of normal height. The vertebral alignment is normal. L1-2: There is no significant canal stenosis or neural foraminal narrowing. L2-3: There is no significant canal stenosis or neural foraminal narrowing. L3-4: There is no significant canal stenosis or neural foraminal narrowing. L4-5: Moderate diffuse disc bulge. Moderate spinal canal compromise. Mild to moderate right neuroforaminal narrowing. L5-S1: Moderate diffuse disc bulge. Broad-based midline disc protrusion. Small midline disc extrusion extending superiorly from the disc space. This is less evident than previous. There is moderate spinal canal compromise and bilateral neuroforaminal narrowing. Neuroforaminal narrowing is more evident than previous. IMPRESSION: Small midline disc extrusion at L5-S1 with moderate spinal canal compromise and bilateral neuroforaminal narrowing. Reviewed, Interpreted and Dictated by Arturo Lagunas MD Transcribed by Debbie Miller Authenticated and [facility]
== END 2024-06-11 23:59 | disposition home or self-care (01) ==
LOC: RAD 14:52
PROVIDERS: PCP Nurse Practitioner Family; Visit Provider Nurse Practitioner Family
DX: M54.16 Radiculopathy, lumbar region (principal)
CPT/HCPCS: 72148

== ENCOUNTER 2024-08-30 10:46 | Outpatient (CLI) | payer BC, SELFPAY ==
--- NOTE | 2024-08-30 10:47 | CT_ITS ---
FINAL REPORT CLINICAL HISTORY: lung cancer screening. SMOKER. 2PPD. 28 YEARS FINDINGS: CTDI vol (mGy): 2.90 DLP: 109.[address] images of the chest were obtained using the low-dose protocol for screening. There is no evidence of mediastinal or hilar mass or adenopathy. No axillary mass or adenopathy is identified. On the lung window images, there is a groundglass nodule in the left upper lobe on image 37 of series 3 measuring 5 mm. There are scattered calcified granulomas. The lungs are otherwise clear. IMPRESSION: Left upper lobe groundglass nodule, favor benign inflammatory. Lung RADS category 2. Recommend 12 month followup low-dose CT for further evaluation. Reviewed, Interpreted and Dictated by Nhi Nevarez MD Transcribed by Cara Gruber Authenticated and [facility]
== END 2024-08-30 23:59 | disposition home or self-care (01) ==
LOC: RAD 10:47
PROVIDERS: PCP Nurse Practitioner Family; Visit Provider Internal Medicine Pulmonary Disease
DX: F17.210 Nicotine dependence, cigarettes, uncomplicated (principal)
CPT/HCPCS: 71271

== ENCOUNTER 2024-10-03 15:54 | Emergency (ER) | payer MEDICAID, SELFPAY ==
[2024-10-03 16:06] VITALS: BP 122/74; PULSE 100; RESP 20; TEMP 36.7; O2SAT 98; BMI 35.4
[2024-10-03] MEDS: KETOROLAC 30MG/ML VIAL 30 MG IM (16:27)
[2024-10-03] MEDS: ACETAMINOPHEN 500MG TAB 1000 MG PO (16:28)
[2024-10-03] MEDS: METHOCARBAMOL 500MG TABLET 1000 MG PO (16:28)
[2024-10-03] MEDS: LIDOCAINE 5% TRANSDERMAL PATCH 1 EACH TD (16:29)
[2024-10-03 16:30] VITALS: BP 102/63; PULSE 100; RESP 16; O2SAT 97
[2024-10-03 17:00] VITALS: BP 127/68; PULSE 94; RESP 16; O2SAT 98
[2024-10-03 17:06] VITALS: BP 127/58; PULSE 91; RESP 16; TEMP 36.7; O2SAT 98
[2024-10-03 17:10] VITALS: BP 127/68; PULSE 100; RESP 20; TEMP 36.8; O2SAT 97
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
== END 2024-10-03 17:11 | disposition home or self-care (01) ==
PROVIDERS: Emergency Provider Emergency Medicine; PCP Nurse Practitioner Family
DX: M54.32 Sciatica, left side (principal); G62.9 Polyneuropathy, unspecified
CPT/HCPCS: 96372; 99283; J1885

== ENCOUNTER 2024-12-20 14:15 | Outpatient (CLI) | payer MEDICAID, SELFPAY ==
[2024-12-20 14:02] LABS: Hematocrit 42.8 % (37.0-47.0); Hemoglobin 14.3 g/dL (12.2-16.2); Immature Granulocytes % 0.3 %; Mean Corpuscular HGB Conc 33.4 g/dL (31.8-35.4); Mean Corpuscular Hemoglobin 30.3 pg (27.0-31.2); Mean Corpuscular Volume 90.7 fl (81-99); Nucleated Red Blood Cells % 0 %; Platelet Count 264 K/mm3 (142-424); Red Blood Count 4.72 M/mm3 (4.20-5.40); Red Cell Distribution Width-SD 44.3 fL; White Blood Count 8.7 K/mm3 (4.8-10.8)
--- OUTSIDE RECORDS SUMMARY | 2024-12-20 14:17 | XMS_ITS | Clinical Summary ---
Author Organization [facility] Address [address] [place] [address] Care Team Providers Care Adult High School Instructor Name Role Phone Mark Soto MD Primary Care Provider [phone] Allergies No known active allergies Medications No known medications Active Problems No known active problems Family History Medical History Relation Name Comments Cancer Other Relation Name Status Comments Other Social History Tobacco Use Types Packs/Day Years Used Date Smoking Tobacco: Never Assessed Comments Unknown Sex and Gender Information Value Date Recorded Sex Assigned at Not on file Legal Sex Female 8:23 PM EDT Gender Identity Not on file Sexual Orientation Not on file Last Filed Vital Signs Vital Sign Reading Time Taken Comments Blood Pressure 111/74 03/04/2022 6:15 AM EDT Pulse 76 03/04/2022 6:15 AM EDT Temperature 36.7 C (98.1 F) 03/04/2022 6:15 AM EDT Respiratory Rate 20 03/03/2022 10:07 PM EDT Oxygen Saturation 97% 03/04/2022 6:15 AM EDT Inhaled Oxygen Concentration - - Weight 69.4 kg (153 lb) 11/22/2014 10:29 AM EDT Height 157.5 cm (5' 2 ) 11/22/2014 10:29 AM EDT Body Mass Index 27.98 11/22/2014 10:29 AM EDT Plan of Treatment Health Maintenance Due Date Last Done Comments [facility]-Depression Screening 1973 [facility]-HIV Screening 1973 [facility]-Hepatitis C Screening 1973 [facility]-Infant/Child/Adol SDOH Screenings 1973 [facility]- SDOH Screenings 10/07/1991 [facility]-Adult SDOH Screenings 10/07/1991 [facility]-DTaP,Tdap,and Td Vaccine s (1 - Tdap) 1992 [facility]-Hepatitis B Vaccines (1 of 3 - 19+ 3-dose series) 1992 [facility]-Pap Smear 1994 [facility]-Cervical Cancer Screening 10/07/2003 [facility]-HPV/Cotest 10/07/2003 CT Colonography 2018 Colonoscopy 2018 FIT-DNA 2018 FIT 2018 FOBT 2018 Sigmoidoscopy 2018 [facility]-Colorectal Cancer Screening 2018 [facility]-Breast Cancer Screening 10/07/2023 [facility]-Pneumococcal Vaccine: 50 + Years (1 of 1 - PCV) 10/07/2023 [facility]-Zoster Vaccines (1 of 2) 10/07/2023 [id number] Vaccine (1 - 20 24-25 season) 2024 [facility]-Influenza Vaccine (#1) 2025 HPV Vaccines Aged Out No longer eligi ble based on patient's age to complete this topic [facility]-HIB Vaccines Aged Out No longer e ligible based on patient's age to complete this topic [facility]-Hepatitis A Vaccines Aged Out No longer eligible based on patient's age to complete this topic [facility]-IPV Vaccines Aged Out No longer e ligible based on patient's age to complete this topic [facility]-Rotavirus Vaccines Aged Out No lo nger eligible based on patient's age to complete this topic Insurance [employer] Care Teams Adult High School Instructor Relationship Specialty Start Date End Date Mark Soto MD [address] [place] [address] PCP - General Internal Medicine 03/03/22
[2024-12-20 14:38] LABS: Alanine Aminotransferase 25 U/L (12-78); Albumin Level 4.4 g/dl (3.5-5.0); Albumin/Globulin Ratio 1.5 (1.1-1.8); Alkaline Phosphatase 97 U/L (38-126); Amylase 54 U/L (30-110); Aspartate Amino Transferase 42 U/L (14-36); Bilirubin,Total 0.7 mg/dl (0.2-1.3); Blood Urea Nitrogen 5 mg/dl (7-17); Calcium 9.7 mg/dl (8.4-10.2); Chloride 90 mmol/L (98-107); Creatinine,Serum 0.50 mg/dl (0.52-1.04); Estimated Glomerular Filt Rate 130 ml/min (>60); GFR (African American) 157 ML/MIN (>60); Globulin 2.9 g/dL (1.3-3.2); Glucose 101 mg/dl (74-100); Lipase 38 U/L (23-300); Sodium 140 mmol/L (136-145); Total Protein,Serum 7.3 g/dl (6.3-8.2)
[2024-12-20 14:44] LABS: Anion Gap 13.7 mEq/L (5-15); Carbon Dioxide 39 mmol/L (22.0-30.0)
[2024-12-20 14:56] LABS: Potassium 2.7 mmoL/L (3.5-5.1)
== END 2024-12-20 23:59 | disposition home or self-care (01) ==
LOC: LAB.DROPOF 14:15
PROVIDERS: PCP Nurse Practitioner Family; Visit Provider Nurse Practitioner Family
DX: R10.9 Unspecified abdominal pain (principal)
CPT/HCPCS: 80053; 82150; 83690; 85025; 87086; 87088; 87186

== ENCOUNTER 2024-12-20 16:27 | Emergency (ER) | payer MEDICAID, SELFPAY ==
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
--- OUTSIDE RECORDS SUMMARY | 2024-12-20 16:58 | XMS_ITS | Clinical Summary ---
Author Organization [facility] Address [address] [place] [address] Care Team Providers Care Planning Feeder Name Role Phone Mark Soto MD Primary Care Provider [phone] Allergies No known active allergies Medications No [...] 10/07/2023 UKY-Zoster Vaccines (1 of 2) 10/07/2023 [id number] Vaccine (1 - 20 24-25 season) 2024 [...] complete this topic Insurance [employer] Care Teams Planning Feeder Relationship Specialty Start Date End Date Mark Soto MD [address] [place] [address] PCP - General Internal Medicine 03/03/22
[2024-12-20 17:00] VITALS: BP 117/79; PULSE 92; RESP 18; TEMP 36.8; O2SAT 98; BMI 32.5
--- NOTE | 2024-12-20 17:01 | ECG_ITS ---
APPROVED REPORT Exam: Resting ECG HR:94 bpm ECG Measurements Heart Rate 94 AXES NJ 141 P 52 QRSd 94 QRS 7 QT 369 T 51 QTc 420 Conclusion SINUS RHYTHM NORMAL ECG Electronically signed by : PJ FLORES, 12/21/2024 08:31:00
[2024-12-20 18:02] LABS: Potassium 2.5 mmoL/L (3.5-5.1)
--- NOTE | 2024-12-20 18:03 | PC.NURSE ---
critical k+ 2.5, pt name and r/v. [place] notified
[2024-12-20] MEDS: POTASSIUM CHLORIDE 20MEQ TAB 80 MEQ PO (18:08)
[2024-12-20 18:13] VITALS: BP 122/75; PULSE 88; RESP 18; TEMP 36.9; O2SAT 98
== END 2024-12-20 18:13 | disposition home or self-care (01) ==
PROVIDERS: Physician Assistant; Emergency Provider Student in an Organized Health Care Education/Training Program; PCP Nurse Practitioner Family
DX: E87.6 Hypokalemia (principal)
CPT/HCPCS: 84132; 93005; 99283

== ENCOUNTER 2024-12-22 13:44 | Outpatient (CLI) | payer MEDICAID, SELFPAY ==
[2024-12-22 18:12] LABS: Potassium 3.0 mmoL/L (3.5-5.1)
--- OUTSIDE RECORDS SUMMARY | 2024-12-23 13:35 | XMS_ITS | Clinical Summary ---
Author Organization [facility] Address [address] [place] [address] Care Team Providers Care Accounts Receivable Coordinator Name Role Phone Mark Soto MD Primary Care Provider [phone] Allergies No known active allergies Medications No [...] UKY-HIV Screening 1973 UKY-Hepatitis C Screening 1973 UKY-/Child/Adol SDOH Screenings 1973 UKY- SDOH Screenings 10/07/1991 [...] 10/07/2023 UKY-Zoster Vaccines (1 of 2) 10/07/2023 [id number] Vaccine (1 - 20 24-25 season) 2024 [...] complete this topic Insurance [employer] Care Teams Accounts Receivable Coordinator Relationship Specialty Start Date End Date Mark Soto MD [address] [place] [address] PCP - General Internal Medicine 03/03/22
== END 2024-12-22 23:59 | disposition home or self-care (01) ==
LOC: LAB.DROPOF 12-23 13:34
PROVIDERS: PCP Nurse Practitioner Family; Visit Provider Nurse Practitioner Family
DX: E87.6 Hypokalemia (principal)
CPT/HCPCS: 84132

== ENCOUNTER 2024-12-24 12:33 | Outpatient (CLI) | payer MEDICAID, SELFPAY ==
[2024-12-24 12:36] LABS: Adenovirus F 40/41, stool Not Detected (NotDetected); Clostridium Difficile A/B, PCR Not Detected (NotDetected); Cyclospora Cayetanesis Not Detected (NotDetected); Plesimonas Shigalloides, PCR Not Detected (NotDetected); Salmonella, PCR Not Detected (NotDetected); Shiga-like toxin E coli Not Detected (NotDetected); Shigella Enterovasive E coli Not Detected (NotDetected); Vibrio, PCR Not Detected (NotDetected); Yersinia Entercolitica, PCR Not Detected (NotDetected)
--- OUTSIDE RECORDS SUMMARY | 2024-12-24 12:36 | XMS_ITS | Clinical Summary ---
Author Organization [facility] Address [address] [place] [address] Care Team Providers Care Ceramic Tile Installation Helper Name Role Phone Mark Soto MD Primary Care Provider [phone] Allergies No known active allergies Medications No [...] 10/07/2023 UKY-Zoster Vaccines (1 of 2) 10/07/2023 [id number] Vaccine (1 - 20 24-25 season) 2024 [...] complete this topic Insurance [employer] Care Teams Ceramic Tile Installation Helper Relationship Specialty Start Date End Date Mark Soto MD [address] [place] [address] PCP - General Internal Medicine 03/03/22
[2024-12-24 14:25] LABS: Potassium 3.3 mmoL/L (3.5-5.1)
== END 2024-12-24 23:59 | disposition home or self-care (01) ==
LOC: LAB 12:34
PROVIDERS: PCP Nurse Practitioner Family; Visit Provider Nurse Practitioner Family
DX: E87.6 Hypokalemia (principal); R19.7 Diarrhea, unspecified
CPT/HCPCS: 84132; 87507

== ENCOUNTER 2024-12-29 16:32 | Outpatient (CLI) | payer MEDICAID, SELFPAY ==
--- OUTSIDE RECORDS SUMMARY | 2024-12-29 16:34 | XMS_ITS | Clinical Summary ---
Author Organization [facility] Address [address] [place] [address] Care Team Providers Care Medicare Sales Representative Name Role Phone Mark Soto MD Primary Care Provider [phone] Allergies No known active allergies Medications No [...] 10/07/2023 UKY-Zoster Vaccines (1 of 2) 10/07/2023 [id number] Vaccine (1 - 20 24-25 season) 2024 [...] complete this topic Insurance [employer] Care Teams Medicare Sales Representative Relationship Specialty Start Date End Date Mark Soto MD [address] [place] [address] PCP - General Internal Medicine 03/03/22
[2024-12-29 16:53] LABS: Potassium 3.6 mmoL/L (3.5-5.1); Uric Acid 6.3 mg/dl (2.5-6.2)
== END 2024-12-29 23:59 | disposition home or self-care (01) ==
LOC: LAB.DROPOF 16:32
PROVIDERS: PCP Nurse Practitioner Family; Visit Provider Nurse Practitioner Family
DX: E87.6 Hypokalemia (principal); M25.50 Pain in unspecified joint
CPT/HCPCS: 84132; 84550

== ENCOUNTER 2025-01-12 12:30 | Outpatient (CLI) | payer MEDICAID, SELFPAY ==
--- OUTSIDE RECORDS SUMMARY | 2025-01-12 12:32 | XMS_ITS | Clinical Summary ---
Author Organization [facility] Address [address] [place] [address] Care Team Providers Care Customer Account Executive Name Role Phone Whitney Horner APRN Primary Care Provider [phone] Allergies No known active allergies Medications estradiol (ESTRACE) 1 MG tablet 3 Active vitamin D (ERGOCALCIFEROL) 1.25 MG (93991 UT) capsule capsule 3 Active pantoprazole (PROTONIX) 40 MG EC tablet 3 Active potassium chloride (K-DUR,KLOR-CON) 20 MEQ CR tablet 3 Active citalopram (CeleXA) 40 MG tablet 1 tablet. 3 Active HYDROcodone-acetam inophen (NORCO) 10-325 MG per tablet Take 1 tablet by mouth Every 6 (Six) Hours As Needed for Moderate Pain. Active methylPREDNISolone (MEDROL) 4 MG dose packIndications:Cindy mbar radiculopathy Take as directed on package instructions. 21 tablet 3 Active gabapentin (NEURONTIN) 300 MG capsuleIndications :Lumbar radiculopathy Take 1 capsule by mouth 3 (Three) Times a Day. 90 capsule 3 Active albuterol sulfate HFA 108 (90 Base) MCG/ACT inhaler 2 puffs. 3 Active Family History Medical History Relation Name Comments Lumbar disc disease Mother Cancer Sister Relation Name Status Comments Mother Sister Social History Tobacco Use Types Packs/Day Years Used Date Smoking Tobacco: Every Day Cigarettes Smokeless Tobacco: Never Alcohol Use Standard Drinks/Week Comments Not Currently 0 (1 standard drink = 0.6 oz pur e alcohol) Abuse Screen Answer Date Recorded Unsafe at Home or Work/School Not on file Feels Threatened by Someone? Not on file Does Anyone Keep You from Co ntacting Others or Doint Things Outside the Home? Not on file 03/28/2023 Physical Sign of Abuse Present Not on file 1 Housing Stability Answer Date Recorded Current Living Arrangements Not on file 03/16 Potentially Unsafe Housing Conditions Not on leny e 03/28/2023 Family and Community Support Answer Ryan e Recorded Help with Day-to-Day Activities Not on file 03/28/2023 Lonely or Isolated Not on file 03/28/2023 Employment Answer Date Recorded Do you want help finding or keeping work or a marshal b? Not on file 03/28/2023 Disabilities Answer Date Recorded Concentrating, Remembering, or Making Decisions Difficulty Not on file 03/28/2023 Doing Errands Independently Difficulty Not on fi le 03/28/2023 Education Answer Date Recorded Help with school or training? Not on file Preferred Language Not on file 03/28/2023 Comments Unknown Sex and Gender Information Value Date Recorded Sex Assigned at Not on file Legal Sex Female 10:14 AM EDT Gender Identity Not on file Sexual Orientation Not on file Last Filed Vital Signs Vital Sign Reading Time Taken Comments Blood Pressure - - Pulse 108 06/04/2023 12:21 PM EST Temperature 35.9 C (96.6 F) 06/04/2023 12:21 PM EST Respiratory Rate - - Oxygen Saturation 99% 06/04/2023 12:21 PM EST Inhaled Oxygen Concentration - - Weight 80.3 kg (177 lb) 06/04/2023 12:21 PM EST Height 160 cm (5' 3 ) 06/04/2023 12:21 PM EST Body Mass Index 31.35 06/04/2023 12:21 PM EST Plan of Treatment Health Maintenance Due Date Last Done Comments Annual Gynecologic Pelvic and Breast Exam 1975 Pneumococcal Vaccine 50+ (1 of 2 - PCV) 1992 TDAP/TD VACCINES (1 - Tdap) 1992 MAMMOGRAM 2013 COLOGUARD 2018 COLON CANCER SCREENING 5 YEAR SIGMOIDOSCOPY 2018 COLONOSCOPY 2018 [address]AL CANCER SCREENING 2018 CT COLONOGRAPHY 2018 FECAL OCCULT BLOOD TEST 2018 FIT Testing (1 year) 2018 ANNUAL PHYSICAL 04/09/2023 HEPATITIS C SCREENING 04/09/2023 ZOSTER VACCINE (1 of 2) 10/07/2023 COVID-19 Vaccine ( season) 2024 INFLUENZA VACCINE 03/16/[address] [place] [id number] [facility] Member Subscriber Plan / Payer (Ef fective 2022-Present) Name:Trixie Soria Relation to Subscriber:Spouse Name:JAMES SORIA Date of :1972 (Home) Address: [place] [address] [address] Payer ID:[id number] (NAIC) Type:Not on file Address: [facility] [address] [place] [id number] Care Teams Customer Account Executive Relationship Specialty Start Date End Date Whitney Horner APRN PCP - General Emergency Medicine 03/13/23
--- OUTSIDE RECORDS SUMMARY | 2025-01-12 12:32 | XMS_ITS | Clinical Summary ---
Author Organization [facility] Address [address] [place] [address] Care Team Providers Care Linux Unix Administrator Name Role Phone Mark Soto MD Primary Care Provider [phone] Allergies No known active allergies Medications No [...] 10/07/2023 UKY-Zoster Vaccines (1 of 2) 10/07/2023 [id number] Vaccine (1 - 20 24-25 season) 2024 [...] complete this topic Insurance [employer] Care Teams Linux Unix Administrator Relationship Specialty Start Date End Date Mark Soto MD [address] [place] [address] PCP - General Internal Medicine 03/03/22
[2025-01-12 13:03] LABS: Hematocrit 41.5 % (37.0-47.0); Hemoglobin 14.2 g/dL (12.2-16.2); Immature Granulocytes % 0.3 %; Mean Corpuscular HGB Conc 34.2 g/dL (31.8-35.4); Mean Corpuscular Hemoglobin 31.3 pg (27.0-31.2); Mean Corpuscular Volume 91.4 fl (81-99); Nucleated Red Blood Cells % 0 %; Platelet Count 264 K/mm3 (142-424); Red Blood Count 4.54 M/mm3 (4.20-5.40); Red Cell Distribution Width-SD 42.3 fL; White Blood Count 10.3 K/mm3 (4.8-10.8)
[2025-01-12 13:36] LABS: Albumin Level 3.5 g/dl (3.5-5.0); Chloride 99 mmol/L (98-107); Potassium 4.1 mmoL/L (3.5-5.1); Sodium 134 mmol/L (136-145)
[2025-01-12 13:39] LABS: Alanine Aminotransferase 24 U/L (12-78); Albumin/Globulin Ratio 1.0 (1.1-1.8); Alkaline Phosphatase 107 U/L (38-126); Amylase 56 U/L (30-110); Anion Gap 9.1 mEq/L (5-15); Aspartate Amino Transferase 34 U/L (14-36); Bilirubin,Total 0.4 mg/dl (0.2-1.3); Blood Urea Nitrogen 6 mg/dl (7-17); Calcium 9.4 mg/dl (8.4-10.2); Carbon Dioxide 30 mmol/L (22.0-30.0); Creatinine,Serum 0.60 mg/dl (0.52-1.04); Estimated Glomerular Filt Rate 105 ml/min (>60); GFR (African American) 128 ML/MIN (>60); Globulin 3.5 g/dL (1.3-3.2); Glucose 110 mg/dl (74-100); Total Protein,Serum 7.0 g/dl (6.3-8.2)
[2025-01-12 13:40] LABS: Lipase 48 U/L (23-300)
== END 2025-01-12 23:59 | disposition home or self-care (01) ==
LOC: LAB 12:31
PROVIDERS: PCP Nurse Practitioner Family; Visit Provider Nurse Practitioner Family
DX: E87.6 Hypokalemia (principal); R11.0 Nausea
CPT/HCPCS: 36415; 80053; 82150; 83690; 85025

== ENCOUNTER 2025-01-25 14:15 | Outpatient (CLI) | payer MEDICAID, SELFPAY ==
[2025-01-25 17:26] LABS: Hematocrit 42.2 % (37.0-47.0); Hemoglobin 14.5 g/dL (12.2-16.2); Immature Granulocytes % 0.4 %; Mean Corpuscular HGB Conc 34.4 g/dL (31.8-35.4); Mean Corpuscular Hemoglobin 31.3 pg (27.0-31.2); Mean Corpuscular Volume 91.1 fl (81-99); Nucleated Red Blood Cells % 0 %; Platelet Count 272 K/mm3 (142-424); Red Blood Count 4.63 M/mm3 (4.20-5.40); Red Cell Distribution Width-SD 41.5 fL; White Blood Count 11.2 K/mm3 (4.8-10.8)
[2025-01-25 18:50] LABS: Potassium 4.0 mmoL/L (3.5-5.1)
--- OUTSIDE RECORDS SUMMARY | 2025-01-26 11:04 | XMS_ITS | Clinical Summary ---
Author Organization [facility] Address [address] [place] [address] Care Team Providers Care Churn Driller Helper Name Role Phone Mark Soto MD Primary Care Provider [phone] Allergies No known active allergies Medications No [...] 10/07/2023 UKY-Zoster Vaccines (1 of 2) 10/07/2023 [id number] Vaccine (1 - 20 24-25 season) 2024 [...] complete this topic Insurance [employer] Care Teams Churn Driller Helper Relationship Specialty Start Date End Date Mark Soto MD [address] [place] [address] PCP - General Internal Medicine 03/03/22
--- OUTSIDE RECORDS SUMMARY | 2025-01-26 11:04 | XMS_ITS | Clinical Summary ---
Author Organization [facility] Address [address] [place] [address] Care Team Providers Care Aircraft Powerplant Repairer Name Role Phone Whitney Horner APRN Primary Care Provider [phone] Allergies No known active allergies Medications estradiol (ESTRACE) 1 MG tablet 3 Active vitamin D (ERGOCALCIFEROL) 1.25 MG (65425 UT) capsule capsule 3 Active pantoprazole (PROTONIX) [...] INFLUENZA VACCINE 03/16/[address] [place] [address] [id number] [facility] PPO Member Subscriber Plan / Payer (Ef fective 2022-Present) Name:Trixie Soria Relation to Subscriber:Spouse Name:JAMES SORIA Date of :1972 (Home) Address: [place] [address] [address] Payer ID:[id number] (NAIC) Type:Not on file Address: [facility] [id number] [place] [id number] Care Teams Aircraft Powerplant Repairer Relationship Specialty Start Date End Date Whitney Horner APRN PCP - General Emergency Medicine 03/13/23
== END 2025-01-25 23:59 | disposition home or self-care (01) ==
LOC: LAB.DROPOF 01-26 10:59
PROVIDERS: PCP Nurse Practitioner Family; Visit Provider Nurse Practitioner Family
DX: E87.6 Hypokalemia (principal); R23.3 Spontaneous ecchymoses
CPT/HCPCS: 82180; 84132; 85025

== ENCOUNTER 2025-02-25 14:39 | Outpatient (CLI) | payer MEDICAID, SELFPAY ==
[2025-02-25 16:05] LABS: Alanine Aminotransferase 32 U/L (12-78); Albumin Level 4.1 g/dl (3.5-5.0); Albumin/Globulin Ratio 1.5 (1.1-1.8); Alkaline Phosphatase 101 U/L (38-126); Anion Gap 10.7 mEq/L (5-15); Aspartate Amino Transferase 40 U/L (14-36); Bilirubin,Total 0.3 mg/dl (0.2-1.3); Blood Urea Nitrogen 6 mg/dl (7-17); Calcium 9.2 mg/dl (8.4-10.2); Carbon Dioxide 30 mmol/L (22.0-30.0); Chloride 98 mmol/L (98-107); Creatinine,Serum 0.50 mg/dl (0.52-1.04); Estimated Glomerular Filt Rate 130 ml/min (>60); GFR (African American) 157 ML/MIN (>60); Globulin 2.8 g/dL (1.3-3.2); Glucose 111 mg/dl (74-100); Potassium 3.7 mmoL/L (3.5-5.1); Sodium 135 mmol/L (136-145); Total Protein,Serum 6.9 g/dl (6.3-8.2)
[2025-02-25 16:22] LABS: T4 (Thyroxine) 7.6 ug/dl (5.53-11.0)
[2025-02-25 16:24] LABS: Free T4 (Free Thyroxine) 0.96 ng/dl (0.78-2.19)
[2025-02-25 16:36] LABS: Thyroid Stimulating Hormone 1.11 uIU/mL (0.465-4.68)
[2025-02-25 17:51] LABS: Ferritin 132 ng/ml (11.1-264)
[2025-02-28 05:26] LABS: Triiodothyronine (T3) Free 2.9 pg/mL (2.0-4.4)
== END 2025-02-25 23:59 | disposition home or self-care (01) ==
LOC: LAB 14:40
PROVIDERS: PCP Nurse Practitioner Family; Visit Provider Nurse Practitioner Family
DX: E01.0 Iodine-deficiency related diffuse (endemic) goiter (principal); R00.0 Tachycardia, unspecified; E87.6 Hypokalemia; R79.89 Other specified abnormal findings of blood chemistry
CPT/HCPCS: 36415; 80053; 82180; 82728; 84436; 84439; 84443; 84481; 86376; 86800

== ENCOUNTER 2025-03-01 08:03 | Outpatient (CLI) | payer MEDICAID, SELFPAY ==
--- NOTE | 2025-03-01 08:30 | US_ITS ---
FINAL REPORT TECHNIQUE: Real-time grayscale and color ultrasound of the thyroid was performed. CLINICAL HISTORY: enlarged thyroid, difficulty swallowing FINDINGS: The thyroid gland measures 4.1 x 1.7 x 1.4 cm on the right and 3.9 x 1.6 x 1.7 cm on the left. The isthmus measures 2 mm. Thyroid gland is at the lower limits of normal. Normal echotexture. Nodules: No suspicious mass or nodule. IMPRESSION: Lower limits of normal thyroid with no evidence of mass. Reviewed, Interpreted and Dictated by Nhi Nevarez MD Transcribed by Josefina Monreal Authenticated and [facility]
== END 2025-03-01 23:59 | disposition home or self-care (01) ==
LOC: RAD 08:04
PROVIDERS: PCP Nurse Practitioner Family; Visit Provider Nurse Practitioner Family
DX: E01.0 Iodine-deficiency related diffuse (endemic) goiter (principal)
CPT/HCPCS: 76536

== ENCOUNTER 2025-03-10 12:37 | Outpatient (CLI) | payer MEDICAID, SELFPAY ==
[2025-03-10] MEDS: ALBUTEROL 0.083% 2.5 MG/3 ML NEB IH (13:20)
== END 2025-03-10 23:59 | disposition home or self-care (01) ==
LOC: RT 12:38
PROVIDERS: PCP Nurse Practitioner Family; Visit Provider Internal Medicine Pulmonary Disease
DX: J44.9 Chronic obstructive pulmonary disease, unspecified (principal); R94.2 Abnormal results of pulmonary function studies
CPT/HCPCS: 94010; 94618

== ENCOUNTER 2025-03-28 15:45 | Outpatient (CLI) | payer MEDICAID, SELFPAY ==
--- OUTSIDE RECORDS SUMMARY | 2025-03-28 15:47 | XMS_ITS ---
Author Organization [facility] , [facility] Address [address] [place] [address] Phone Care Team Providers Care Acid Purifier Name Role Phone Family, Care Center Unavailable [phone] Tj Callaway MD Unavailable [phone] Problems Includes: Active, inactive, and resolved Problems All Visits Onset Date Resolved Date Provider Condition S tatus Lower Back Pain 10/09/2023 Tj Callaway MD Act adry Last Documented On 4 12:45PM ; [facility], [facility] Plan of Treatment Instructions to patient Intervention and counseling on cessation of tobacco use Last Documented On 4 12:51PM ; [facility], [facility] Intervention and counseling on cessation of tobacco use Last Documented On 4 2:09PM ; [facility], [facility] Lose weight Last Documented On 4 12:51PM ; [facility], [facility] Assessments Includes: Assessments for all patient encounters Findings Encounter Date Overweight Physician Specified with Tj Callaway MD 10/09/2023 Last Documented On 4 2:09PM ; [facility], [facility] Instructions Includes: Instructions for all patient encounters Instructions to patient Intervention and counseling on cessation of tobacco use Last Documented On 4 12:51PM ; [facility], [facility] Intervention and counseling on cessation of tobacco use Last Documented On 4 2:09PM ; [facility], [facility] Lose weight Last Documented On 4 12:51PM ; [facility], [facility] Medical Equipment - Implanted Devices Includes: Current and historical Devices No Medical Equipment Recorded Medications Includes: Current and historical Medications Current Medications (continue as prescribed) diazePAM 5 MG Oral Tablet 09/17/2023 Provider: MOISÉS DUGGAN Diagnosis: Last Documented On 4 12:46PM By Elizabeth Gutiérrez ; [facility], [facility] Sertraline HCl 50 MG Oral Tablet 09/04/2023 Provider : LYLE DUGGAN Diagnosis: Last Documented On 4 12:46PM By Elizabeth Gutiérrez ; [facility], [facility] Cefdinir 300 MG Oral Capsule 08/27/2023 Provider: LYLE DUGGAN Diagnosis: Last Documented On 4 12:46PM By Elizabeth Gutiérrez ; [facility], [facility] Potassium Chloride Eula ER 2 0 MEQ Oral Tablet Extended Release 08/27/2023 Provider: LYLE DUGGAN Diagnosis: Last Documented On 4 12:46PM By Elizabeth Gutiérrez ; [facility], [facility] Gabapentin 400 MG Oral Capsule 08/14/2023 Provider: KAREN ALVAREZ MD Diagnosis: Last Documented On 4 12:46PM By Elizabeth Gutiérrez ; [facility], [facility] Breyna 80-4.5 MCG/ACT Inhalation Aerosol 07/30/2023 Provider: LYLE DUGGAN Diagnosis: Last Documented On 4 12:46PM By Elizabeth Gutiérrez ; [facility], [facility] traZODone HCl 50 MG Oral Tablet 07/30/2023 Provider: LYLE DUGGAN Diagnosis: Last Documented On 4 12:46PM By Elizabeth Gutiérrez ; [facility], [facility] Pantoprazole Sodium 40 MG Or al Tablet Delayed Release 07/28/2023 Provider: Whitney Horner APRN Diagnosis: Last Documented On 4 12:46PM By Elizabeth Gutiérrez ; [facility], [facility] Estradiol 1 MG Oral Tablet 07/27/2023 Provider: Malathi DUGGAN Diagnosis: Last Documented On 4 12:46PM By Elizabeth Gutiérrez ; [facility], [facility] Fluticasone Propionate 50 MC G/ACT Nasal Suspension 07/18/2023 Provider: LYLE DUGGAN Diagnosis: Last Documented On 4 12:46PM By Elizabeth Gutiérrez ; [facility], [facility] Vitamin D (Ergocalciferol) 1 .25 MG (89840 UT) Oral Capsule 06/20/2023 Provider: LYLE DUGGAN Diagnosis: Last Documented On 4 12:46PM By Elizabeth Gutiérrez ; [facility], [facility] Albuterol Sulfate HFA 108 (9 0 Base) MCG/ACT Inhalation Aerosol Solution 05/23/2023 Provider: LYLE SEXTON ER Diagnosis: Last Documented On 4 12:46PM By Elizabeth Gutiérrez ; [facility], [facility] Citalopram Hydrobromide 40 MG Oral Tablet 05/09/2023 Provider: TOMASA VILLAVICENCIO MD Diagnosis: Last Documented On 4 12:46PM By Elizabeth Gutiérrez ; [facility], [facility] Past Medications on file Gabapentin 300 MG Oral Capsule 06/17/2023 - 10/09/2023 Provider: KAREN ALVAREZ MD Diagnosis: Last Documented On 4 2:08PM By Tj Callaway ; [facility], [facility] Medications Administered Includes: Administered Medications in patient's chart No Administered Medications Recorded Results Includes: Results from 03/28/2024 through 03/28/2025 No Results Recorded For Specified Dates History of Present Illness History of Present Illness not supported for this document type No History of Present Illness Recorded Social History Description Last Updated Tobacco use 10/09/2023 Last Documented On 4 2:09PM ; [facility], [facility] Caffeine use 10/09/2023 Last Documented On 4 2:09PM ; [facility], [facility] No recent change in diet 10/09/2023 Last Documented On 4 2:09PM ; [facility], [facility] Not exercising regularly 10/09/2023 Last Documented On 4 2:09PM ; [facility], [facility] Not using alcohol 10/09/2023 Last Documented On 4 2:09PM ; [facility], [facility] Not using drugs 10/09/2023 Last Documented On 4 2:09PM ; [facility], [facility] Yes, current smoker. 10/09/2023 Last Documented On 4 2:09PM ; [facility] Smoking Status Unknown Procedures and Surgical History Surgical History Last Updated History of hysterectomy 10/09/2023 Last Documented On 4 2:09PM ; [facility], [facility] Medical History Includes: Medical History in patient's chart Description Last Updated History of arthritis 10/09/2023 Last Documented On 4 2:09PM ; [facility] History of asthma 10/09/2023 Last Documented On 4 2:09PM ; [facility] History of depression 10/09/2023 Last Documented On 4 2:09PM ; [facility] History of diverticulitis of colon 10/08 Last Documented On 4 2:09PM ; [facility] History of Heartburn / Acid Reflux 10/08 Last Documented On 4 2:09PM ; [facility] History of History of Cancer 10/09/2023 Last Documented On 4 2:09PM ; [facility], [facility] Family History Includes: Family History in patient's chart Description Last Updated Family history of cancer 10/09/2023 Last Documented On 4 2:09PM ; [facility], [facility] Review of Systems Review of Systems not supported for this document type No Review of Systems Recorded Mental Status No Mental Status Recorded Functional Status No Functional Status Recorded Physical Exam Physical Exam not supported for this document type No Physical Exam Recorded Allergies Includes: Active, inactive, and resolved Allergies No Known Allergies Insurance Includes: Active Insurance Policies Plan Name Member ID Group # Subscriber Relationship Effect adry Dates - [facility] [id number] Trixie Thomas Clinical Notes Includes: Signed Clinical Notes starting from 05/30/2022 No Clinical Notes Recorded
--- OUTSIDE RECORDS SUMMARY | 2025-03-28 15:47 | XMS_ITS | Clinical Summary ---
Author Organization [facility] Address [address] [place] [address] Care Team Providers Care Pitting Machine Operator Name Role Phone Whitney Horner APRN Primary Care Provider [phone] Allergies No known active allergies Medications estradiol (ESTRACE) 1 MG tablet 3 Active vitamin D (ERGOCALCIFEROL) 1.25 MG (71608 UT) capsule capsule 3 Active pantoprazole (PROTONIX) [...] 04/09/2023 ZOSTER VACCINE (1 of 2) 10/07/2023 INFLUENZA VACCINE 01/14/2025 Insurance Oscar [place], [place] [id number] [facility] PPO Care Teams Pitting Machine Operator Relationship Specialty Start Date End Date Whitney Horner APRN PCP - General Emergency Medicine 03/13/23
--- OUTSIDE RECORDS SUMMARY | 2025-03-28 15:47 | XMS_ITS | Clinical Summary ---
Author Organization [facility] , [facility] Address [address] [place] [address] Phone Care Team Providers Care Plisse Machine Operator Name Role Phone Family, Care Center Unavailable [phone] [place], Tj Beasley Unavailable [phone] Reason for Visit and Chief Complaint [Patient Encounter] Problems Includes: Problems addressed during this encounter and other active Problems All Visits Onset Date Resolved Date Provider Condition S tatus Lower Back Pain 10/09/2023 Tj Callaway MD Act adry Last Documented On 4 12:45PM ; [facility], [facility] Plan of Treatment No Plan of Treatment Recorded Assessments Includes: Assessments from this encounter No Assessments Recorded Medical Equipment - Implanted Devices Includes: Current Devices No Medical Equipment Recorded Medications Includes: Medications discussed during this encounter and other current Medications Current Medications (continue as prescribed) diazePAM 5 MG Oral Tablet 09/17/2023 Provider: MOISÉS DUGGAN Diagnosis: Last Documented On 4 12:46PM By Elizabeth Gutiérrez ; [facility], [facility] Sertraline HCl 50 MG Oral Tablet 09/04/2023 Provider : LYLE DUGGAN Diagnosis: Last Documented On 4 12:46PM By Elizabeth Gutiérrez ; [facility], [facility] Cefdinir 300 MG Oral Capsule 08/27/2023 Provider: LYLE DUGGAN Diagnosis: Last Documented On 4 12:46PM By Elizabeth Gutiérrez ; [facility], [facility] Potassium Chloride Eula ER 2 0 MEQ Oral Tablet Extended Release 08/27/2023 Provider: LYLE DUGGAN Diagnosis: Last Documented On 4 12:46PM By Elizabeth Gutiérrez ; [facility], [facility] Gabapentin 400 MG Oral Capsule 08/14/2023 Provider: KAREN ALVAREZ MD Diagnosis: Last Documented On 4 12:46PM By Elizabeth Gutiérrez ; [facility], [facility] Breyna 80-4.5 MCG/ACT Inhalation Aerosol 07/30/2023 Provider: LYLE DUGGAN Diagnosis: Last Documented On 4 12:46PM By Elizabeth Gutiérrez ; [facility], [facility] traZODone HCl 50 MG Oral Tablet 07/30/2023 Provider: LYLE DUGGAN Diagnosis: Last Documented On 4 12:46PM By Elizabeth Gutiérrez ; [facility], [facility] Pantoprazole Sodium 40 MG Or al Tablet Delayed Release 07/28/2023 Provider: Whitney Horner APRN Diagnosis: Last Documented On 4 12:46PM By Elizabeth Gutiérrez ; [facility], [facility] Estradiol 1 MG Oral Tablet 07/27/2023 Provider: Malathi DUGGAN Diagnosis: Last Documented On 4 12:46PM By Elizabeth Gutiérrez ; [facility], [facility] Fluticasone Propionate 50 MC G/ACT Nasal Suspension 07/18/2023 Provider: LYLE DUGGAN Diagnosis: Last Documented On 4 12:46PM By Elizabeth Gutiérrez ; [facility], [facility] Vitamin D (Ergocalciferol) 1 .25 MG (33529 UT) Oral Capsule 06/20/2023 Provider: LYLE DUGGAN Diagnosis: Last Documented On 4 12:46PM By Elizabeth Gutiérrez ; [facility], [facility] Albuterol Sulfate HFA 108 (9 0 Base) MCG/ACT Inhalation Aerosol Solution 05/23/2023 Provider: LYLE SEXTON ER Diagnosis: Last Documented On 4 12:46PM By Elizabeth Gutiérrez ; [facility], [facility] Citalopram Hydrobromide 40 MG Oral Tablet 05/09/2023 Provider: TOMASA VILLAVICENCIO MD Diagnosis: Last Documented On 4 12:46PM By Elizabeth Gutiérrez ; [facility], [facility] Medications Administered Includes: Administered Medications from this encounter No Administered Medications Recorded Results Includes: Results discussed during this encounter No Results Recorded For Specified Dates History of Present Illness Includes: History of Present Illness from this encounter No History of Present Illness Recorded Social History No Social History Recorded - Smoking Status Unknown Medical History Includes: Medical History addressed during this encounter No Medical History Recorded Family History Includes: Family History addressed during this encounter No Family History Recorded Review of Systems Includes: Review of Systems from this encounter No Review of Systems Recorded Mental Status Includes: Mental Status from this encounter No Mental Status Recorded Functional Status Includes: Functional Status from this encounter No Functional Status Recorded Physical Exam Includes: Physical Exam from this encounter No Physical Exam Recorded Allergies Includes: Active Allergies No Known Allergies Encounters Encounter Provider Location Date Check-In Time Check-Out Time Diagnosis [Patient Encounter] Tj Callaway MD 02/19/2024 11:37AM 11:59PM Insurance Includes: Active Insurance Policies Plan Name Member ID Group # Subscriber Relationship Effect adry Dates 1 - [facility] [id number] Trixie Leahy Self Clinical Notes Includes: Clinical Notes from this encounter No Clinical Notes Recorded
--- NOTE | 2025-03-28 15:48 | XR_ITS ---
FINAL REPORT CLINICAL HISTORY: left hip pain FINDINGS: An AP view of the pelvis and a frog leg view of the left hip were obtained. There is no acute fracture or dislocation. Joint space is preserved. Remaining osseous pelvis is without acute abnormality. Soft tissues are unremarkable. IMPRESSION: No acute osseous abnormality of the left hip. Reviewed, Interpreted and Dictated by Meghan Wells MD Transcribed by Cara Gruber Authenticated and [facility]
--- OUTSIDE RECORDS SUMMARY | 2025-03-28 15:48 | XMS_ITS | Clinical Summary ---
Author Organization [facility] Address [address] [id number] Care Team Providers Care Weighmaster Lead Name Role Phone Mark Soto MD Primary Care Provider [phone] Allergies No known active allergies Medications No [...] Date Last Done Comments [facility]-Depression Screening 1973 [facility]-Infant/Child/Adol SDOH Screenings 1973 [facility]- SDOH Screenings 10/07/1991 [facility]-Adult SDOH Screenings 10/07/1991 [facility]-DTaP,Tdap,and Td Vaccine s (1 - Tdap) 1992 [facility]-Hepatitis B Vaccines (1 of 3 - 19+ 3-dose series) 1992 [facility]-Pap Smear 1994 [facility]-Cervical Cancer Screening 10/07/2003 [facility]-HPV/Cotest 10/07/2003 CT Colonography 2018 Colonoscopy 2018 FIT-DNA 2018 FIT 2018 FOBT 2018 Sigmoidoscopy 2018 [facility]-Colorectal Cancer Screening 2018 [facility]-Pneumococcal Vaccine: 50 + Years (1 of 1 - PCV) 10/07/2023 [facility]-Zoster Vaccines (1 of 2) 10/07/2023 [id number] Vaccine (1 - 24- season) 2025 [facility]-Influenza Vaccine (#1) 2025 HPV Vaccines Aged [...] patient's age to complete this topic Insurance MARK Care Teams Weighmaster Lead Relationship Specialty Start Date End Date Mark Soto MD [address] [place] [place] [address] PCP - General Internal Medicine 03/03/22
--- OUTSIDE RECORDS SUMMARY | 2025-03-28 15:48 | XMS_ITS ---
Care Plan - [facility], [facility] Created on: March 28, 2025 Trixie Leahy : 1975 Sex: Female Author Organization [facility], [facility] Address [address] [place] [address] Phone Care Team Providers Care Supervisor Last Model Department Name Role Phone Family, Care Center Unavailable [phone] [place], Tj Beasley Unavailable [phone]
--- OUTSIDE RECORDS SUMMARY | 2025-03-28 15:48 | XMS_ITS | Clinical Summary ---
Author Organization [facility] Address [address] [place] [address] Phone Care Team Providers Care Dump Grader Name Role Phone Family, Care Center Unavailable [phone] [place] H[place]AL[place], Tj Beasley Unavailable [phone] Reason for Visit and Chief Complaint The Chief Complaint is: low back Problems Includes: Problems addressed during this encounter and other active Problems Current Visit Onset Date Resolved Date Provider Conditio n Status Lower Back Pain 10/09/2023 Tj Callaway MD Act adry Last Documented On 4 12:45PM ; [facility] Plan of Treatment Instructions to patient Intervention and counseling on cessation of tobacco use Last Documented On 4 12:51PM ; [facility] Intervention and counseling on cessation of tobacco use Last Documented On 4 2:09PM ; [facility] Lose weight Last Documented On 4 12:51PM ; [facility] Assessments Includes: Assessments from this encounter Findings - Overweight - Last Documented On 11/11/2023 2:09PM ; [facility] Lumbar MRI demonstrates a large leftward disc herniation with central and left posterolateral stenosis at L5-S1. - Last Documented On 11/11/2023 2:09PM ; [facility] Two-view lumbar x-rays demonstrate normal alignment with diffuse degenerative changes. - Last Documented On 11/11/2023 2:09PM ; [facility] Assessment left L5-S1 disc herniation with a posterior stenosis and left leg radiculopathy - Last Documented On 11/11/2023 2:09PM ; [facility] Plan: Dr. 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 The risks include infection, medical complication, potential future need of fusion, and incomplete relief from symptoms. Recovery timeline and downtime restrictions were also discussed. Patient gave consent and elected to proceed. - Last Documented On 11/11/2023 2:09PM ; [facility] Instructions Includes: Instructions from this encounter Instructions to patient Intervention and counseling on cessation of tobacco use Last Documented On 4 12:51PM ; [facility] Intervention and counseling on cessation of tobacco use Last Documented On 4 2:09PM ; [facility] Lose weight Last Documented On 12:51PM ; [facility] Medical Equipment - Implanted Devices Includes: Current Devices No Medical Equipment Recorded Medications Includes: Medications discussed during this encounter and other current Medications Discontinued / Stopped on this date KAREN ALVAREZ MD on 06/17/2023 Gabapentin 300 MG Oral Capsule Provider: KAREN ALVAREZ MD Diagnosis: Last Documented On 4 2:08PM By Tj Chambers [facility] Current Medications (continue as prescribed) diazePAM 5 MG Oral Tablet 09/17/2023 Provider: MOISÉS DUGGAN Diagnosis: Last Documented On 4 12:46PM By Elizabeth Chambers [facility] Sertraline HCl 50 MG Oral Tablet 09/04/2023 Provider : LYLE DUGGAN Diagnosis: Last Documented On 4 12:46PM By Elizabeth Chambers [facility] Cefdinir 300 MG Oral Capsule 08/27/2023 Provider: LYLE DUGGAN Diagnosis: Last Documented On 4 12:46PM By Elizabeth Chambers [facility] Potassium Chloride Eula ER 2 0 MEQ Oral Tablet Extended Release 08/27/2023 Provider: LYLE DUGGAN Diagnosis: Last Documented On 4 12:46PM By Elizabeth Gutiérrez ; [facility] Gabapentin 400 MG Oral Capsule 08/14/2023 Provider: KAREN ALVAREZ MD Diagnosis: Last Documented On 4 12:46PM By Elizabeth Gutiérrez ; [facility] Breyna 80-4.5 MCG/ACT Inhalation Aerosol 07/30/2023 Provider: LYLE DUGGAN Diagnosis: Last Documented On 4 12:46PM By Elizabeth Gutiérrez ; [facility] traZODone HCl 50 MG Oral Tablet 07/30/2023 Provider: LYLE DUGGAN Diagnosis: Last Documented On 4 12:46PM By Elizabeth Gutiérrez ; [facility] Pantoprazole Sodium 40 MG Or al Tablet Delayed Release 07/28/2023 Provider: Whitney Horner APRN Diagnosis: Last Documented On 4 12:46PM By Elizabeth Gutiérrez ; [facility] Estradiol 1 MG Oral Tablet 07/27/2023 Provider: Malathi DUGGAN Diagnosis: Last Documented On 4 12:46PM By Elizabeth Gutiérrez ; [facility] Fluticasone Propionate 50 MC G/ACT Nasal Suspension 07/18/2023 Provider: LYLE DUGGAN Diagnosis: Last Documented On 4 12:46PM By Elizabeth Gutiérrez ; [facility] Vitamin D (Ergocalciferol) 1 .25 MG (42506 UT) Oral Capsule 06/20/2023 Provider: LYLE DUGGAN Diagnosis: Last Documented On 4 12:46PM By Elizabeth Gutiérrez ; [facility] Albuterol Sulfate HFA 108 (9 0 Base) MCG/ACT Inhalation Aerosol Solution 05/23/2023 Provider: LYLE SEXTON ER Diagnosis: Last Documented On 4 12:46PM By Elizabeth Gutiérrez ; [facility] Citalopram Hydrobromide 40 MG Oral Tablet 05/09/2023 Provider: TOMASA VILLAVICENCIO MD Diagnosis: Last Documented On 4 12:46PM By Elizabeth Gutiérrez ; [facility] Medications Administered Includes: Administered Medications from this encounter No Administered Medications Recorded Vital Signs Includes: Vital Signs from this encounter Vital Name 10/09/2023 12:46P Height (in) 63 Weight (lb) 183 Body Mass Index 32.4 Body Surface Area 1.9 Pain Level 7 Note: Last Documented: On 10/09/2023 12:47P M ; [facility] Results Includes: Results discussed during this encounter No Results Recorded For Specified Dates History of Present Illness Includes: History of Present Illness from this encounter HPI Trixie Leahy is a 48 year old female. - Symptoms catching, giving way, popping standing, walking, sitting, lying to much makes the pain worse. - Allergy list reviewed - Problem list reviewed - Medication list reviewed - Previous history of new onset pain Injury is not work related or an automotive accident - Patient pain level from 1-10: 7 - Yes, previous treatment. [facility] - History of Physical Therapy [facility] - History of Home Exercise - History of Chiropractic [facility] - History of Injections - - Review of medications documented Medications used for this condition: New patient chief complaint of left leg pain she has been going on for 22 and 3 years. She says she has been working with a chiropractor she has been going to pain management she has had epidurals but no this is really helped. She says she saw another spine surgeon he is offered surgery for leg but she wanted a 2nd opinion. She said she has had some falls over the years and about 2 years ago she was at work and she would bent over and she felt a pop and she said numbness and weakness in the left leg ever since. She does smoke. She takes gabapentin Social History Description Last Updated Tobacco use 10/09/2023 Last Documented On 4 2:09PM ; [facility] Caffeine use 10/09/2023 Last Documented On 4 2:09PM ; [facility] No recent change in diet 10/09/2023 Last Documented On 4 2:09PM ; [facility] Not exercising regularly 10/09/2023 Last Documented On 4 2:09PM ; [facility] Not using alcohol 10/09/2023 Last Documented On 4 2:09PM ; [facility] Not using drugs 10/09/2023 Last Documented On 4 2:09PM ; [facility] Yes, current smoker. 10/09/2023 Last Documented On 4 2:09PM ; [facility] Smoking Status Unknown Procedures and Surgical History Includes: Procedures from this encounter Procedures Code Diagnosis Performing Provider Service L ocation Service Date intervention and counseling on cessation of tobacco use 4000F Last Documented On 4 12:51PM ; [facility] use of tobacco assessment performed 1000F Last Documented On 4 12:51PM ; [facility] review of medications documented 1160F Last Documented On 4 12:51PM ; [facility] an X-ray was performed [facility] l [address] Last Documented On 4 12:49PM ; [facility] L-spine CT 02/21/23 @ [facility] spital [id number] Last Documented On 4 12:58PM ; [facility] an MRI was performed L-spine MRI 03/06/23 @ [facility] [id number] Last Documented On 4 12:58PM ; [facility] brace Last Documented On 4 12:49PM ; [facility] Surgical History Last Updated History of hysterectomy 10/09/2023 Last Documented On 4 2:09PM ; [facility] Medical History Includes: Medical History addressed during this encounter Description Last Updated History of arthritis 10/09/2023 Last Documented On 4 2:09PM ; [facility] History of asthma 10/09/2023 Last Documented On 4 2:09PM ; [facility] History of depression 10/09/2023 Last Documented On 4 2:09PM ; [facility] History of diverticulitis of colon 10/08 Last Documented On 4 2:09PM ; [facility] History of Heartburn / Acid Reflux 10/08 Last Documented On 4 2:09PM ; [facility] History of History of Cancer 10/09/2023 Last Documented On 4 2:09PM ; [facility] Family History Includes: Family History addressed during this encounter Description Last Updated Family history of cancer 10/09/2023 Last Documented On 4 2:09PM ; [facility] Review of Systems Includes: Review of Systems from this encounter Systemic: Feeling tired. No recent weight loss. Recent weight gain. Head: Headache. No sinus pain. Eyes: No vision problems and no Cataracts. Glasses/Contacts. No Glaucoma. Otolaryngeal: No hearing loss and no tinnitus. Cardiovascular: Chest pain or discomfort. No palpitations, no Hypertension, and no High Cholesterol. Pulmonary: No daytime asthma symptoms. Chronic cough and wheezing. Gastrointestinal: Heartburn. No abdominal pain. Indigestion. No Peptic Ulcer, no GI Stomach Bleed, and no Ulcers. Acid Reflux. Endocrine: Hot flashes. No muscle weakness, no Diabetes, no Hypothyroid, and no Hyperthyroid. Hematologic: No easy bleeding. A tendency for easy bruising. No Anemia. Musculoskeletal: Arthritis and lower back pain. No soft tissue swelling. Pain localized to one or more joints. Neurological: Dizziness. No convulsions. Numbness. Psychological: Anxiety. No emotional lability. Depression. No insomnia. Not crying for no reason. Skin: No dry skin. No Ulcers. Scars. No rash. Allergic and Immunologic: No complaint of seasonal allergic reaction. Mental Status Includes: Mental Status from this encounter Description Anxiety Functional Status Includes: Functional Status from this encounter No Functional Status Recorded Physical Exam Includes: Physical Exam from this encounter Allergies Includes: Active Allergies No Known Allergies Encounters Encounter Provider Location Date Check-In Time Check-Out Time Diagnosis Physician Specified Tj Callaway MD [facility] 10/09/19 24 12:30PM 1:16PM Overweight Insurance Includes: Active Insurance Policies Plan Name Member ID Group # Subscriber Relationship Effect adry Dates 1 - [facility] [id number] Trixie Leahy Self Clinical Notes Includes: Clinical Notes from this encounter * Progress note Date Encounter Last Documented by 10/09/2023 Physician Specified Last documen alex on 11/11/2023; 2:09 PM, Tj Callaway MD; [facility] Active Problems & Conditions - Lower Back Pain Chief Complaint The Chief Complaint is: Low back. Referred Here Referred by [facility]. History of Present Illness Trixie Leahy is a 48 year old female. - Symptoms catching, giving way, popping standing, walking, sitting, lying to much makes the pain worse. - Allergy list reviewed - Problem list reviewed - Medication list reviewed - Previous history of new onset pain Injury is not work related or an automotive accident - Patient pain level from 1-10: 7 - Yes, previous treatment. [facility] - History of Physical Therapy [facility] - History of Home Exercise - History of Chiropractic [facility] - History of Injections - - Review of medications documented Medications used for this condition: New patient chief complaint of left leg pain she has been going on for 22 and 3 years. She says she has been working with a chiropractor she has been going to pain management she has had epidurals but no this is really helped. She says she saw another spine surgeon he is offered surgery for leg but she wanted a 2nd opinion. She said she has had some falls over the years and about 2 years ago she was at work and she would bent over and she felt a pop and she said numbness and weakness in the left leg ever since. She does smoke. She takes gabapentin Current Medication - Albuterol Sulfate HFA 108 (90 Base) MCG/ACT Inhalation Aerosol Solution 17 days, 0 refills - Breyna 80-4.5 MCG/ACT Inhalation Aerosol 30 days, 0 refills - Cefdinir 300 MG Oral Capsule 10 days, 0 refills - Citalopram Hydrobromide 40 MG Oral Tablet 90 days, 0 refills - diazePAM 5 MG Oral Tablet 1 days, 0 refills - Estradiol 1 MG Oral Tablet 90 days, 0 refills - Fluticasone Propionate 50 MCG/ACT Nasal Suspension 30 days, 0 refills - Gabapentin 400 MG Oral Capsule 11 days, 0 refills - Pantoprazole Sodium 40 MG Oral Tablet Delayed Release 90 days, 0 refills - Potassium Chloride Eula ER 20 MEQ Oral Tablet Extended Release 90 days, 0 refills - Sertraline HCl 50 MG Oral Tablet 30 days, 0 refills - traZODone HCl 50 MG Oral Tablet 30 days, 0 refills - Vitamin D (Ergocalciferol) 1.25 MG (24449 UT) Oral Capsule 84 days, 0 refills Past Medical/Surgical History Diagnoses: Asthma History of Cancer Heartburn / Acid Reflux. Diverticulitis of colon. Arthritis. Depression Surgical: - Hysterectomy Social History Yes, current smoker. Current diet: No recent change in diet. Caffeine use: Caffeine use. Tobacco use: Tobacco use. Alcohol: Not using alcohol. Drug Use: Not using drugs. Habits: Not exercising regularly. Allergies - No Known Allergies Family History Cancer Review Of Systems Systemic: Feeling tired. No recent weight loss. Recent weight gain. Head: Headache. No sinus pain. Eyes: No vision problems and no Cataracts. Glasses/Contacts. No Glaucoma. Otolaryngeal: No hearing loss and no tinnitus. Cardiovascular: Chest pain or discomfort. No palpitations, no Hypertension, and no High Cholesterol. Pulmonary: No daytime asthma symptoms. Chronic cough and wheezing. Gastrointestinal: Heartburn. No abdominal pain. Indigestion. No Peptic Ulcer, no GI Stomach Bleed, and no Ulcers. Acid Reflux. Endocrine: Hot flashes. No muscle weakness, no Diabetes, no Hypothyroid, and no Hyperthyroid. Hematologic: No easy bleeding. A tendency for easy bruising. No Anemia. Musculoskeletal: Arthritis and lower back pain. No soft tissue swelling. Pain localized to one or more joints. Neurological: Dizziness. No convulsions. Numbness. Psychological: Anxiety. No emotional lability. Depression. No insomnia. Not crying for no reason. Skin: No dry skin. No Ulcers. Scars. No rash. Allergic and Immunologic: No complaint of seasonal allergic reaction. Physical Findings - Vitals taken 10/09/2023 12:46 pm lc Height 63 in Weight 183 lbs Body Mass Index 32.4 kg/m2 Body Surface Area 1.9 m2 Pain Level 7 Pleasant, alert and oriented x3 Patient walks with a normal gait and no assistive device No acute distress. Non-labored respirations Normal affect, appropriate mood. Extraocular motor movements intact. Normal hearing Patient is nontender to palpation lower lumbar spine. No bruising. positive straight leg raise test on the left She is weakness in the left EHL rating 3/5; 5/5 on the right 5 out of 5 strength in bilateral tibialis anterior, and gastrocnemius. Assessment - Overweight Lumbar MRI demonstrates a large leftward disc herniation with central and left posterolateral stenosis at L5-S1. Two-view lumbar x-rays demonstrate normal alignment with diffuse degenerative changes. Assessment left L5-S1 disc herniation with a posterior stenosis and left leg radiculopathy Plan: Dr. 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 The risks include infection, medical complication, potential future need of fusion, and incomplete relief from symptoms. Recovery timeline and downtime restrictions were also discussed. Patient gave consent and elected to proceed. Previous Tests Imaging: Intravascular Ultrasound (Coronary Vessel/Graft): An X-ray was performed [facility]. Bone Density Studies: CT scan L-spine CT 02/21/23 @ [facility]. CT Scan Lower Extremity Foot: An MRI was performed L-spine MRI 03/06/23 @ [facility]. Basic Management Procedures And Services: - Brace Available previous imaging studies were reviewed Available previous history reviewed Therapy - Intervention and counseling on cessation of tobacco use. Counseling/Education - Tobacco use - Use of tobacco assessment performed - Intervention and counseling on cessation of tobacco use - Lose weight Notes This dictation was done with voice recognition software and may contain errors and omissions. Practice Management Use of tobacco assessment performed Review of medications documented. Care Team - Care Center Family Health Reminders - Assess BMI satisfied 10/09/2023. - Assess Tobacco Use satisfied 10/09/2023. - Follow Up Plan BMI Management satisfied 10/09/2023. - Smoking & Tobacco Cessation Intervention and Counseling satisfied 10/09/2023.
[2025-03-28 17:00] LABS: Potassium 3.8 mmoL/L (3.5-5.1)
== END 2025-03-28 23:59 | disposition home or self-care (01) ==
LOC: LAB 15:45
PROVIDERS: PCP Nurse Practitioner Family; Visit Provider Nurse Practitioner Family
DX: M25.552 Pain in left hip (principal); R79.89 Other specified abnormal findings of blood chemistry; E87.6 Hypokalemia
CPT/HCPCS: 36415; 73502; 82180; 84132